=== PATIENT | female | born 1925 | race Caucasian/White ===

== ENCOUNTER 2016-03-09 13:14 | Inpatient (IN) | payer MEDICARE, OTHER ==
[~2016-03-09] VITALS: Ht 162.6 cm; Wt 70.0 kg
[2016-03-09 13:19] VITALS: BP 131/84; PULSE 96; RESP 20; TEMP 98.3; O2SAT 95
[2016-03-09] MEDS ORDERED: ONDANSETRON HCL 4 MG/2 ML VIAL IVP ONE (14:15)
[2016-03-09] MEDS ORDERED: MORPHINE SULFATE 4 MG/ML INJ IV PUSH ONE (14:15)
[2016-03-09] MEDS ORDERED: SODIUM CHLORIDE 0.9% FLUSH 5 ML FLUSH IVF PRN (14:15)
--- NOTE | 2016-03-09 14:22 | PD ---
HPI Chief Complaint: Abdominal Pain Time Seen by Provider: 14:22 Travel History International Travel<30 days: No Contact w/Intl Traveler<30days: No Traveled to known affect area: No History of Present Illness HPI 89-year-old female with PMH of A. fib status post pacemaker, CHF, HLD, DM, gastric cancer status post Dany-en-Y in 2003, on Coumadin presents to the ED for evaluation of 3 day history of constipation with associated belly pain. Gradual onset. Patient endorses accompanying nausea. She denies vomiting. She has been eating 3-4 small meals daily. She denies dark, tarry stool, BRBPR. Endorses chronic urinary incontinence. Denies dysuria. Denies fever or chills. Patient's son accompanies her. He states that she [facility] AM approximately one week ago. He presents paperwork from her discharge that shows diagnosis of CHF, elevated troponins. He is also concerned that the patient has been confused for the past 2 days. Patient's primary care is Dr. Leonor Read. PFSH Past Medical History Hx Anticoagulant Therapy: Yes Depression: Yes Heart Rhythm Problems: Yes Cancer: Yes (GASTRIC ; SKIN) Cardiovascular Problems: Yes (ATRIAL FIB) High Cholesterol: Yes Chemotherapy: Yes (2003) Cerebrovascular Accident: No Diabetes: Yes Patient Takes Glucophage: Yes (Metformin 03/08/2016) Diminished Hearing: Yes (BILATERAL) Deep Vein Thrombosis: Yes Endocrine: Yes Gastrointestinal Disorders: Yes (GERD) Genitourinary: Yes (STRESS INCONTINENCE) Headaches: Yes Hepatitis: No Hiatal Hernia: No Hypertension: Yes Immune Disorder: No Medical other: Yes (HX PULMONARY EMBOLISM -BILATERAL ) Musculoskeletal: Yes (ARTHRITIS; RIGHT SHOULDER TORN ROTATOR CUFF; NECK PAIN) Neurologic: Yes (NEUROPATHY FEET AND HANDS) Psychiatric: No Reproductive: Yes (S/P HYSTERECTOMY) Respiratory: No Radiation Therapy: Yes (2003) Thyroid Disease: Yes (SYNTHROID) Menopausal: Yes : 4 Para: 4 Past Surgical History Abdominal Surgery: Yes (GASTRIC RESECTION 2003 (DANY-EN-Y); OLGA) Body Medical Devices: PIN TOE Cardiac Surgery: Yes (PACEMAKER) Eye Surgery: Yes (BILATERAL CATARACT SX) Genitourinary Surgery: Yes (BLADDER SUSPENSION) Hysterectomy: Yes Pacemaker: Yes ([id number],S60 ENTOVIS DRT) Other Surgery: Yes Social History Alcohol Use: No Tobacco Use: No Substance Use: No Allergies-Medications (Allergen,Severity, Reaction): Coded Allergies: Aspirin (Verified Allergy, Severe, 11/22/14) MILD REACTION; EXCESSIVE SALIVA Celebrex (Verified Allergy, Severe, RASH, 11/22/14) MILD REACTION-RASH Sulfa (Verified Allergy, Severe, Rash, 11/22/14) PT STATES SHE IS NOT ALLERGIC TO THIS MED Reported Meds & Prescriptions Reported Meds & Active Scripts Active Reported Simvastatin 20 Mg Tab 20 Mg PO HS Fish Oil 1200 mg ([place]-3 Fatty Acids) 1 Cap Cap 1,200 Mg PO BID Theragran-M (Multiple Vitamins W/ Minerals) 1 Tab 1 Tab PO DAILY Toprol XL (Metoprolol Succinate) 25 Mg Tab 25 Mg PO DAILY Metformin (Metformin HCl) 500 Mg Tab 500 Mg PO BID With meals Gabapentin 300 Mg Cap 300 Mg PO BID Alph-E (Vitamin E) 400 Unit Cap 400 Units PO BID Potassium 99 Mg Tab 99 Mg PO DAILY Synthroid (Levothyroxine Sodium) 50 Mcg Tab 50 Mcg PO DAILY Vitamin D3 (Cholecalciferol) 1,000 Unit Tab 1,000 Units PO DAILY Coumadin (Warfarin) 5 Mg Tab 5 Mg PO DAILY@1600 Vesicare (Solifenacin) 5 Mg Tab 5 Mg PO DAILY Tramadol (Tramadol HCl) 50 Mg Tab 50 Mg PO Q8H Lasix (Furosemide) 40 Mg Tab 40 Mg PO DAILY Hydrochlorothiazide 25 Mg Tab 25 Mg PO DAILY Jose Luis-Tab DR (Erythromycin) 250 Mg Tabdr 250 Mg PO Q8HR Review of Systems Except as stated in HPI: all other systems reviewed are Neg Physical Exam Exam Limitations: Poor Historian Narrative GENERAL: Well-nourished, well-developed white female in no acute distress. She is occasionally tearful throughout the interview. SKIN: Warm and dry. HEAD: Normocephalic. EYES: No scleral icterus. No injection or drainage. PERRLA. NECK: Supple, trachea midline. No JVD or lymphadenopathy. CARDIOVASCULAR: Regular rate and rhythm without murmurs, gallops, or rubs. RESPIRATORY: Breath sounds clear and equal bilaterally. No accessory muscle use. GASTROINTESTINAL: Abdomen firm, diffusely tender, mildly distended. Hyperactive bowel sounds. Very tender to palpation in the suprapubic area. MUSCULOSKELETAL: No cyanosis. Right leg with 2+ pitting edema to the knee. Left leg with extreme edema to the mid thigh. BACK: Nontender without obvious deformity. No CVA tenderness. Data Data Last Documented VS Vital Signs Date Time Temp Pulse Resp B/P Pulse Ox O2 Delivery O2 Flow Rate FiO2 03/09/16 16:26 99 Nasal Cannula 2.00 03/09/16 15:01 77 14 131/79 03/09/16 13:19 98.3 Orders Complete Blood Count With Diff (03/09/16 14:14) Comprehensive Metabolic Panel (03/09/16 14:14) Lipase (03/09/16 14:14) Lactic Acid (03/09/16 14:14) Prothrombin Time / Inr (Pt) (03/09/16 14:14) Act Partial Throm Time (Ptt) (03/09/16 14:14) Urinalysis - C+S If Indicated (03/09/16 14:14) Ct Abd/Pel W Iv Contrast(Rout) (03/09/16 14:14) Iv Access Insert/Monitor (03/09/16 14:14) Ecg Monitoring (03/09/16 14:14) Oximetry (03/09/16 14:14) NPO (03/09/16 14:14) Morphine Inj (Morphine Inj) (03/09/16 14:15) Ondansetron Inj (Zofran Inj) (03/09/16 14:15) Sodium Chloride 0.9% Flush (Ns Flush) (03/09/16 14:15) Electrocardiogram (03/09/16 14:14) Chest, Single Ap (03/09/16 14:14) Potassium Chloride (Kcl) (03/09/16 15:15) Potassium Chlor 20 Meq Premix (Kcl 20 Me (03/09/16 15:15) ^ Straight Catheter (03/09/16 15:22) Iodixanol 320 Inj (Visipaque 320 Inj) (03/09/16 15:30) Admit To Inpatient (03/09/16 ) Vital Signs (Adult) Q4H (03/09/16 16:22) Activity Oob With Assistance (03/09/16 16:22) ^ Operations/Dispatch / Telemetry .CONTINUOUS (03/09/16 16:22) Intake + Output VINCE.QSHIFT (03/09/16 16:22) Diet Heart Healthy (03/09/16 Dinner) Sodium Chlor 0.9% 1000 Ml Inj (Ns 1000 M (03/09/16 16:22) Sodium Chloride 0.9% Flush (Ns Flush) (03/09/16 16:30) Sodium Chloride 0.9% Flush (Ns Flush) (03/09/16 21:00) Acetaminophen (Tylenol) (03/09/16 16:30) Ondansetron Inj (Zofran Inj) (03/09/16 16:30) Prochlorperazine Supp (Compazine Supp) (03/09/16 16:30) Bisacodyl Supp (Dulcolax Supp) (03/09/16 16:30) Magnesium Hydroxide Liq (Milk Of Magnesi (03/09/16 16:30) Sennosides (Senokot) (03/09/16 16:30) Temazepam (Restoril) (03/09/16 16:30) Basic Metabolic Panel (Bmp) (03/10/16 06:00) Complete Blood Count With Diff (03/10/16 06:00) Resp Oxygen Karthik C Titrat 1-4 L (03/09/16 ) Pt Request For Service (03/09/16 16:22) Case Management Consult (03/09/16 16:22) Scd Bilateral/Knee High VINCE.BID (03/09/16 16:22) Rojas Bilateral/Knee High VINCE.QSHIFT (03/09/16 16:22) Inpatient Certification (03/09/16 ) Potassium Chlor 20 Meq Premix (Kcl 20 Me (03/09/16 16:30) Admit Order (Ed Use Only) (03/09/16 16:22) Consult Urology (03/09/16 ) Labs Laboratory Tests Test 03/09/16 03/09/16 14:12 14:20 Lactic Acid Level 1.6 mmol/L White Blood Count 2.4 TH/MM3 Red Blood Count 2.78 MIL/MM3 Hemoglobin 9.9 GM/DL Hematocrit 29.0 % Mean Corpuscular Volume 104.1 FL Mean Corpuscular Hemoglobin 35.5 PG Mean Corpuscular Hemoglobin 34.1 % Concent Red Cell Distribution Width 15.3 % Platelet Count 228 TH/MM3 Mean Platelet Volume 10.2 FL Neutrophils (%) (Auto) 40.1 % Lymphocytes (%) (Auto) 42.3 % Monocytes (%) (Auto) 16.5 % Eosinophils (%) (Auto) 0.2 % Basophils (%) (Auto) 0.9 % Neutrophils # (Auto) 1.0 TH/MM3 Lymphocytes # (Auto) 1.0 TH/MM3 Monocytes # (Auto) 0.4 TH/MM3 Eosinophils # (Auto) 0.0 TH/MM3 Basophils # (Auto) 0.0 TH/MM3 CBC Comment DIFF FINAL Differential Comment Prothrombin Time 19.1 SEC Prothromb Time International 1.7 RATIO Ratio Activated Partial 32.6 SEC Thromboplast Time Sodium Level 141 MEQ/L Potassium Level 2.5 MEQ/L Chloride Level 100 MEQ/L Carbon Dioxide Level 31.6 MEQ/L Anion Gap 9 MEQ/L Blood Urea Nitrogen 24 MG/DL Creatinine 1.30 MG/DL Estimat Glomerular Filtration 39 ML/MIN Rate Random Glucose 112 MG/DL Calcium Level 8.7 MG/DL Total Bilirubin 0.9 MG/DL Aspartate Amino Transf 20 U/L (AST/SGOT) Alanine Aminotransferase 22 U/L (ALT/SGPT) Alkaline Phosphatase 66 U/L Total Protein 6.1 GM/DL Albumin 3.1 GM/DL Lipase 63 U/L [facility] Medical Decision Making Medical Screen Exam Complete: Yes Emergency Medical Condition: Yes Interpretation(s) EKG rate 76 with A. fib. Occasional pacer spike. Normal axis. No ischemic changes. Reviewed by Dr. Kidd. Differential Diagnosis Constipation versus bowel obstruction versus UTI versus ACS versus other Narrative Course 89-year-old female with PMH of A. fib status post pacemaker, CHF, HLD, DM, gastric cancer status post Dany-en-Y in 2003, on Coumadin presents to the ED for evaluation of gradual onset, 3 day history of constipation with associated belly pain, accompanied by nausea. Endorses good appetite. Denies fever, chills, vomiting, dysuria. Patient's son accompanies is at bedside and states that she left [facility] approximately one week ago diagnosed with CHF, elevated troponins. PCP: Dr. Leonor Read. No current trader. Vitals reviewed. Physical exam with diffuse abdominal tenderness, especially in the suprapubic region. Significant edema in the bilateral lower extremities, left greater than right. Otherwise unremarkable. IV was established. Patient was placed on continuous monitoring. She was administered Zofran and morphine. CBC: WBC 2.4. Rbc's 2.78. Hemoglobin 9.9. INR is 1.7, subtherapeutic. Lactic acid 1.6. CMP: BUN 24, creatinine 1.3. Potassium 2.5. Lipase 6.3. Chest x-ray: small left pleural effusion, cardiomegaly and degenerative changes and scoliosis of the thoracolumbar spine. CT abdomen and pelvis: 1. Chronic moderate to severe hydronephrosis bilaterally of indeterminate etiology. 2. Mild diffuse urinary bladder wall thickening. 3. Uncomplicated sigmoid diverticulosis. 4. Minimal prominence of the extrahepatic and central intrahepatic biliary system. Correlation with alkaline phosphatase and bilirubin levels is suggested to rule out biliary obstruction. 5. Small to moderate sized left pleural effusion and tiny right pleural effusion. 4. Cardiomegaly. 5. Atelectasis within the lingula of the left upper lobe. 6. Degenerative changes and scoliosis of the thoracolumbar spine. Patient's potassium was replaced both orally and by IV. Recheck of the patient reveals improvement of her abdominal pain. Discussed the patient and workup with Dr. Kidd. Given the hydronephrosis and elevated BUN and creatinine will admit to the medicine service with nephrology consult. Spoke with Dr. Wren who agrees to accept the patient to the medical service for further evaluation. Please see medicine and urology notes for disposition. Diagnosis Primary Impression: Bilateral hydronephrosis Additional Impressions: Hypokalemia MINE (acute kidney injury) Admitting Information Admitting Physician Requests: Admit Briana Lang Mar 09, 2016 14:22 Briana Lang Mar 09, 2016 14:22
[2016-03-09] MEDS ORDERED: ALPH400C2 PO (14:31)
[2016-03-09] MEDS ORDERED: HYDR25TA5 PO (14:31)
[2016-03-09] MEDS ORDERED: FURO1TAB60 PO (14:31)
[2016-03-09] MEDS ORDERED: SIMV20TA PO (14:31)
[2016-03-09] MEDS ORDERED: MIRA33504 PO (14:31)
[2016-03-09] MEDS ORDERED: ERYT250 PO (14:31)
[2016-03-09] MEDS ORDERED: LEVO.05 PO (14:31)
[2016-03-09] MEDS ORDERED: VITA100018 PO (14:31)
[2016-03-09] MEDS ORDERED: VESI5TAB PO (14:31)
[2016-03-09] MEDS ORDERED: THERTAB27 PO (14:31)
[2016-03-09] MEDS ORDERED: TRAM50TA PO (14:31)
[2016-03-09] MEDS ORDERED: COUM5TAB PO (14:31)
[2016-03-09] MEDS ORDERED: POTA99TA PO (14:31)
[2016-03-09] MEDS ORDERED: FISH1200 PO (14:31)
[2016-03-09] MEDS ORDERED: METF500T PO (14:31)
[2016-03-09] MEDS ORDERED: GABA300C5 PO (14:31)
[2016-03-09] MEDS ORDERED: TOPR25TA PO (14:31)
[2016-03-09 14:45] LABS: BASOPHIL % 0.9 % (0.0-2.0); EOSINOPHIL % 0.2 % (0.0-4.0); HEMO FLAGS DIFF FINAL; LYMPH % 42.3 % (9.0-44.0); MEAN CELL VOLUME 104.1 FL (80.0-100.0); MEAN CORPUSCULAR HEMOGLOBIN 35.5 PG (27.0-34.0); MEAN CORPUSCULAR HGB CONC 34.1 % (32.0-36.0); MONO % 16.5 % (0.0-8.0); NEUT % 40.1 % (16.0-70.0); PLATELET COUNT 228 TH/MM3 (150-450); RED BLOOD COUNT 2.78 MIL/MM3 (4.00-5.30); RED CELL DISTRIBUTION WIDTH 15.3 % (11.6-17.2); WHITE BLOOD COUNT 2.4 TH/MM3 (4.0-11.0)
[2016-03-09 14:54] LABS: APTT (PATIENT) 32.6 SEC (24.3-30.1); INTERNATIONAL NORMALIZED RATIO 1.7 RATIO; PROTHROMBIN TIME - PATIENT 19.1 SEC (9.8-11.6)
[2016-03-09 15:01] VITALS: BP 131/79; PULSE 77; RESP 14; O2SAT 100
[2016-03-09 15:09] LABS: ALKALINE PHOSPHATASE 66 U/L (45-117); ALT (GPT) 22 U/L (10-53); ANION GAP 9 MEQ/L (5-15); AST (GOT) 20 U/L (15-37); BICARBONATE 31.6 MEQ/L (21.0-32.0); BLOOD UREA NITROGEN 24 MG/DL (7-18); CHLORIDE 100 MEQ/L (98-107); GLOMERULAR FILTRATION RATE 39 ML/MIN (>89); SODIUM (NA) 141 MEQ/L (136-145); TOTAL BILIRUBIN ADULT 0.9 MG/DL (0.2-1.0)
[2016-03-09 15:11] LABS: POTASSIUM 2.5 MEQ/L (3.5-5.1)
--- NOTE | 2016-03-09 15:11 | RADRPT ---
EXAM DATE/TIME: 03/09/2016 14:40 [facility] COMPARISON: CHEST SINGLE AP, February 05, 2016, 20:11. INDICATIONS : Short of Breath MEDICAL HISTORY : Carcinoma, gastric. SURGICAL HISTORY : Pacemaker. Hysterectomy. ENCOUNTER: Initial ACUITY: 1 day PAIN SCORE: 4/10 LOCATION: Bilateral chest FINDINGS: A left subclavian dual-lead pacemaker has its tips in the right atrium and right ventricle. There is no pneumothorax. A small left pleural effusion is noted. The pulmonary vascular pattern is normal. The lungs are clear. The heart is mildly enlarged. Degenerative changes and scoliosis of the thor acolumbar spine are noted. CONCLUSION: 1. Small left pleural effusion. 2. Cardiomegaly. 3. Degenerative changes and scoliosis of the thoracolumbar spine. Ervin Lilly MD on March 09, 2016 at 15:04 Board Certified Radiologist. This report was verified electronically.
[2016-03-09] MEDS ORDERED: POTASSIUM CHLORIDE 20 MEQ CONTROLLED RELEASE TAB PO ONE (15:15)
[2016-03-09] MEDS ORDERED: POTASSIUM CHLOR 20 MEQ PREMIX 100 ML IV ONE (15:15)
[2016-03-09] MEDS ORDERED: IODIXANOL 320 MG/ML 10 ML VIAL (for RAD SPEC) IV ONE (15:30)
--- NOTE | 2016-03-09 15:56 | RADRPT ---
EXAM DATE/TIME: 03/09/2016 15:26 [facility] COMPARISON: CTA RUNOFF W 3D RECON, February 05, 2016, 22:07. INDICATIONS : Constipation for three days and abdominal pain. IV CONTRAST: 46 cc Visipaque (iodixanol) IV ORAL CONTRAST: No oral contrast ingested. RADIATION DOSE: 5.57 CTDIvol (mGy) MEDICAL HISTORY : Diabetes mellitus type 2. Hypertension. Gastric cancer. Thyroid disease. SURGICAL HISTORY : Hysterectomy. Pacemaker. Javan en Y. ENCOUNTER: Initial ACUITY: 3 days PAIN SCALE: 5/10 LOCATION: Pelvis TECHNIQUE: Volumetric scanning of the abdomen and pelvis was performed. Using automated exposure control and ad justment of the mA and/or kV according to patient size, radiation dose was kept as low as reasonably achievable to obtain optimal diagnostic quality images. FINDINGS: Small to moderate sized left pleural effusion and tiny right pleural effusion are noted. The heart i s enlarged. There is chronic moderate to severe hydronephrosis bilaterally without definite calcifie d obstructing calculi noted. The urinary bladder is only partially distended and its wall is diffuse ly thickened. A few scattered uncomplicated diverticula are noted. There is no acute diverticulitis . Gastric bypass has been performed. The patient is status post cholecystectomy. No focal hepatic mass is noted. There is slight prominence of the extrahepatic and central intrahepatic biliary syste m. Correlation with alkaline phosphatase and bilirubin levels is suggested to rule out subtle biliar y obstruction. Degenerative changes and scoliosis of the thoracolumbar spine are noted. There is st able atrophy of the pancreas. Atelectasis is noted within the lingula of the left upper lobe. CONCLUSION: 1. Chronic moderate to severe hydronephrosis bilaterally of indeterminate etiology. 2. Mild diffuse urinary bladder wall thickening. 3. Uncomplicated sigmoid diverticulosis. 4. Minimal prominence of the extrahepatic and central intrahepatic biliary system. Correlation with alkaline phosphatase and bilirubin levels is suggested to rule out biliary obstruction. 5. Small to moderate sized left pleural effusion and tiny right pleural effusion. 4. Cardiomegaly. 5. Atelectasis within the lingula of the left upper lobe. 6. Degenerative changes and scoliosis of the thoracolumbar spine. Ervin Lilly MD on March 09, 2016 at 15:42 Board Certified Radiologist. This report was verified electronically.
[2016-03-09 16:26] VITALS: O2SAT 99
--- NOTE | 2016-03-09 16:26 | PD ---
Physical Exam Narrative Patient was seen and examined with my press operator assistant. Data Data Last Documented VS Vital Signs Date Time Temp Pulse Resp B/P Pulse Ox O2 Delivery O2 Flow Rate FiO2 03/09/16 15:01 77 14 131/79 100 Nasal Cannula 2 03/09/16 13:19 98.3 Orders Complete Blood Count With Diff (03/09/16 14:14) Comprehensive Metabolic Panel (03/09/16 14:14) Lipase (03/09/16 14:14) Lactic Acid (03/09/16 14:14) Prothrombin Time / Inr (Pt) (03/09/16 14:14) Act Partial Throm Time (Ptt) (03/09/16 14:14) Urinalysis - C+S If Indicated (03/09/16 14:14) Ct Abd/Pel W Iv Contrast(Rout) (03/09/16 14:14) Iv Access Insert/Monitor (03/09/16 14:14) Ecg Monitoring (03/09/16 14:14) Oximetry (03/09/16 14:14) NPO (03/09/16 14:14) Morphine Inj (Morphine Inj) (03/09/16 14:15) Ondansetron Inj (Zofran Inj) (03/09/16 14:15) Sodium Chloride 0.9% Flush (Ns Flush) (03/09/16 14:15) Electrocardiogram (03/09/16 14:14) Chest, Single Ap (03/09/16 14:14) Potassium Chloride (Kcl) (03/09/16 15:15) Potassium Chlor 20 Meq Premix (Kcl 20 Me (03/09/16 15:15) ^ Straight Catheter (03/09/16 15:22) Iodixanol 320 Inj (Visipaque 320 Inj) (03/09/16 15:30) Admit To Inpatient (03/09/16 ) Vital Signs (Adult) Q4H (03/09/16 16:22) Activity Oob With Assistance (03/09/16 16:22) ^ Java Development Team Lead / Telemetry .CONTINUOUS (03/09/16 16:22) Intake + Output VINCE.QSHIFT (03/09/16 16:22) Diet Heart Healthy (03/09/16 Dinner) Sodium Chlor 0.9% 1000 Ml Inj (Ns 1000 M (03/09/16 16:22) Sodium Chloride 0.9% Flush (Ns Flush) (03/09/16 16:30) Sodium Chloride 0.9% Flush (Ns Flush) (03/09/16 21:00) Acetaminophen (Tylenol) (03/09/16 16:30) Ondansetron Inj (Zofran Inj) (03/09/16 16:30) Prochlorperazine Supp (Compazine Supp) (03/09/16 16:30) Bisacodyl Supp (Dulcolax Supp) (03/09/16 16:30) Magnesium Hydroxide Liq (Milk Of Magnesi (03/09/16 16:30) Sennosides (Senokot) (03/09/16 16:30) Temazepam (Restoril) (03/09/16 16:30) Basic Metabolic Panel (Bmp) (03/10/16 06:00) Complete Blood Count With Diff (03/10/16 06:00) Resp Oxygen Karthik C Titrat 1-4 L (03/09/16 ) Pt Request For Service (03/09/16 16:22) Case Management Consult (03/09/16 16:22) Scd Bilateral/Knee High VINCE.BID (03/09/16 16:22) Rojas Bilateral/Knee High VINCE.QSHIFT (03/09/16 16:22) Inpatient Certification (03/09/16 ) Potassium Chlor 20 Meq Premix (Kcl 20 Me (03/09/16 16:30) Admit Order (Ed Use Only) (03/09/16 16:22) Labs Laboratory Tests Test 03/09/16 03/09/16 14:12 14:20 Lactic Acid Level 1.6 mmol/L White Blood Count 2.4 TH/MM3 Red Blood Count 2.78 MIL/MM3 Hemoglobin 9.9 GM/DL Hematocrit 29.0 % Mean Corpuscular Volume 104.1 FL Mean Corpuscular Hemoglobin 35.5 PG Mean Corpuscular Hemoglobin 34.1 % Concent Red Cell Distribution Width 15.3 % Platelet Count 228 TH/MM3 Mean Platelet Volume 10.2 FL Neutrophils (%) (Auto) 40.1 % Lymphocytes (%) (Auto) 42.3 % Monocytes (%) (Auto) 16.5 % Eosinophils (%) (Auto) 0.2 % Basophils (%) (Auto) 0.9 % Neutrophils # (Auto) 1.0 TH/MM3 Lymphocytes # (Auto) 1.0 TH/MM3 Monocytes # (Auto) 0.4 TH/MM3 Eosinophils # (Auto) 0.0 TH/MM3 Basophils # (Auto) 0.0 TH/MM3 CBC Comment DIFF FINAL Differential Comment Prothrombin Time 19.1 SEC Prothromb Time International 1.7 RATIO Ratio Activated Partial 32.6 SEC Thromboplast Time Sodium Level 141 MEQ/L Potassium Level 2.5 MEQ/L Chloride Level 100 MEQ/L Carbon Dioxide Level 31.6 MEQ/L Anion Gap 9 MEQ/L Blood Urea Nitrogen 24 MG/DL Creatinine 1.30 MG/DL Estimat Glomerular Filtration 39 ML/MIN Rate Random Glucose 112 MG/DL Calcium Level 8.7 MG/DL Total Bilirubin 0.9 MG/DL Aspartate Amino Transf 20 U/L (AST/SGOT) Alanine Aminotransferase 22 U/L (ALT/SGPT) Alkaline Phosphatase 66 U/L Total Protein 6.1 GM/DL Albumin 3.1 GM/DL Lipase 63 U/L MDM Supervised Visit with TRISTON: Yes Diagnosis Primary Impression: Bilateral hydronephrosis Additional Impressions: MINE (acute kidney injury) Hypokalemia Jose Enrique Kidd MD Mar 09, 2016 16:26
[2016-03-09] MEDS ORDERED: PROCHLORPERAZINE 25 MG SUPP PR PRN (16:30)
[2016-03-09] MEDS ORDERED: BISACODYL 10 MG SUPP PR PRN (16:30)
[2016-03-09] MEDS ORDERED: SENNOSIDES 8.6 MG TAB PO PRN (16:30)
[2016-03-09] MEDS ORDERED: DEXTROSE 50% IN WATER 50 ML VIAL(D50) IV PUSH PRN (16:30)
[2016-03-09] MEDS ORDERED: ACETAMINOPHEN 325 MG TAB PO PRN (16:30)
[2016-03-09] MEDS ORDERED: TEMAZEPAM 15 MG CAP PO PRN (16:30)
[2016-03-09] MEDS ORDERED: SODIUM CHLORIDE 0.9% FLUSH 5 ML FLUSH FLUSH PRN (16:30)
[2016-03-09] MEDS ORDERED: GLUCAGON 1 MG/ML VIAL OTHER PRN (16:30)
--- NOTE | 2016-03-09 16:41 | HHI.HP ---
[facility] Primary Care Physician Leonor Ulloa MD Admission Diagnosis bilateral hydronephrosis. Renal insufficiency. Hypokalemia. Diagnoses: Travel History International Travel<30 Days: No Contact w/Intl Traveler <30 Da: No Traveled to Known Affected Are: No History of Present Illness 89-year-old female with past medical history of HTN, HLD, DM, A. fib, GERD, PE, hypothyroidism, CHF, h/o gastric CA who presented with abdominal pain. The patient is a poor historian. She states that she's had chronic abdominal pain "off and on for a long time", unable to specify how long, continually asks to "check my history". When asked if her abdominal pain is been getting worse lately she states "yes and no" but does not elaborate. She reports the abdominal pain is diffuse and worse in the upper abdomen. She does state that she has not had a bowel movement and "a couple of days" unsure when last BM was. She does state that she took MiraLAX and 2 enemas yesterday with still no BM. She denies any vomiting, but she states she feels like she needs to. She has been tolerating oral intake, but much. She was recently admitted at [facility], but she states they didn't do anything there so she checked herself out. She denies any chest pain, shortness of breath, fever, chills. She has chronic urinary incontinence. She states she is having some dysuria a few weeks ago and saw her urologist, Dr. Eduardo, who told her that she did not have an infection. She states that she hasn't seen her funding coordinator in quite a while because they had "parted ways". Review of Systems ROS Limitations: Poor Historian Other Review of systems Limited secondary to poor historian Past Family Social History Past Medical History Hypertension Hyperlipidemia Diabetes mellitus Atrial fibrillation History of PE on chronic anticoagulation GERD Hypothyroidism History of gastric cancer status post resection and radiation Chronic anemia/leukopenia CHF, diastolic Stress incontinence Past Surgical History Gastric cancer resection Javan-en-Y surgery Hysterectomy Cholecystectomy Pacemaker placement Reported Medications Simvastatin 20 Mg Tab 20 Mg PO HS Fish Oil 1200 mg ([place]-3 Fatty Acids) 1 Cap Cap 1,200 Mg PO BID Theragran-M (Multiple Vitamins W/ Minerals) 1 Tab 1 Tab PO DAILY Toprol XL (Metoprolol Succinate) 25 Mg Tab 25 Mg PO DAILY Metformin (Metformin HCl) 500 Mg Tab 500 Mg PO BID With meals Gabapentin 300 Mg Cap 300 Mg PO BID Alph-E (Vitamin E) 400 Unit Cap 400 Units PO BID Potassium 99 Mg Tab 99 Mg PO DAILY Synthroid (Levothyroxine Sodium) 50 Mcg Tab 50 Mcg PO DAILY Vitamin D3 (Cholecalciferol) 1,000 Unit Tab 1,000 Units PO DAILY Coumadin (Warfarin) 5 Mg Tab 5 Mg PO DAILY@1600 Vesicare (Solifenacin) 5 Mg Tab 5 Mg PO DAILY Tramadol (Tramadol HCl) 50 Mg Tab 50 Mg PO Q8H Lasix (Furosemide) 40 Mg Tab 40 Mg PO DAILY Hydrochlorothiazide 25 Mg Tab 25 Mg PO DAILY Jose Luis-Tab DR (Erythromycin) 250 Mg Tabdr 250 Mg PO Q8HR Allergies: Coded Allergies: Aspirin (Verified Allergy, Severe, 11/22/14) MILD REACTION; EXCESSIVE SALIVA Celebrex (Verified Allergy, Severe, RASH, 11/22/14) MILD REACTION-RASH Sulfa (Verified Allergy, Severe, Rash, 11/22/14) PT STATES SHE IS NOT ALLERGIC TO THIS MED Active Ordered Medications Current Medications Medications (Trade) Dose Ordered Sig/Armin Route Start Time Stop Time Status Last Admin IV Flush 2 ml 2 ml UNSCH PRN IVF 03/09/16 14:15 Potassium Chloride 100 ml @ 50 mls/hr BOLUS ONCE IV 03/09/16 15:15 03/09/16 17:14 03/09/16 15:59 (NS 1000 ml Inj) 1,000 ml @ 100 mls/hr Q10H IV 03/09/16 16:22 (NS Flush) 2 ml UNSCH PRN FLUSH 03/09/16 16:30 (NS Flush) 2 ml BID FLUSH 03/09/16 21:00 (Tylenol) 650 mg Q4H PRN PO 03/09/16 16:30 (Zofran Inj) 4 mg Q6H PRN IVP 03/09/16 16:30 (Compazine Supp) 25 mg Q12H PRN SC 03/09/16 16:30 (Dulcolax Supp) 10 mg DAILY PRN SC 03/09/16 16:30 (Milk Of Magnesia Liq) 30 ml Q12H PRN PO 03/09/16 16:30 (Senokot) 17.2 mg Q12H PRN PO 03/09/16 16:30 Temazepam 15 mg 15 mg HS PRN PO 03/09/16 16:30 (KCl 20 Meq Premix Inj) 100 ml @ 50 mls/hr Q2H IV 03/09/16 16:30 03/09/16 20:29 UNV (Erythromycin Ec) 250 mg Q8HR PO 03/09/16 22:00 UNV (Neurontin) 300 mg BID PO 03/09/16 21:00 UNV (Synthroid) 50 mcg DAILY PO 03/10/16 09:00 UNV (Toprol Xl) 25 mg DAILY PO 03/10/16 09:00 UNV (Theragran M Tab) 1 tab DAILY PO 03/10/16 09:00 UNV (Miralax) 17 gm DAILY PO 03/10/16 09:00 UNV (Ultram) 50 mg Q8H PO 03/09/16 16:30 UNV (Coumadin) 5 mg DAILY@1600 PO 03/10/16 16:00 UNV Non-Formulary Medication 1,200 mg BID PO 03/09/16 21:00 UNV Non-Formulary Medication 99 mg DAILY PO 03/10/16 09:00 UNV Non-Formulary Medication 20 mg HS PO 03/09/16 21:00 UNV Non-Formulary Medication 5 mg DAILY PO 03/10/16 09:00 UNV (D50w (Vial) Inj) 25 ml UNSCH PRN IV PUSH 03/09/16 16:30 UNV (Glucagon Inj) 1 mg UNSCH PRN OTHER 03/09/16 16:30 UNV Family History Mother had high blood pressure and severe arthritis Social History Rare alcohol use Denies any tobacco use Lives in independent living facility Physical Exam Vital Signs Vital Signs Date Time Temp Pulse Resp B/P Pulse Ox O2 Delivery O2 Flow Rate FiO2 03/09/16 16:26 99 Nasal Cannula 2.00 03/09/16 15:01 77 14 131/79 100 Nasal Cannula 2 03/09/16 15:01 14 03/09/16 13:27 03/09/16 13:19 98.3 96 20 131/84 95 Room Air Physical Exam GENERAL: Well-developed well-nourished. In no acute distress. SKIN: Warm and dry. No lesions noted. HEENT: Normocephalic. Pupils equal and round. Mucous membranes pink and moist. CARDIOVASCULAR: Irregular rate and rhythm. No murmur appreciated. RESPIRATORY: No accessory muscle use. Clear to auscultation. Bibasilar crackles. GASTROINTESTINAL: Abdomen soft, non-tender, nondistended. Bowel sounds x4. MUSCULOSKELETAL: Left lower extremity with a compression dressing, patient states is for DVT. 2+ lower extremity edema. No clubbing or cyanosis. NEUROLOGICAL: Awake and alert. No focal neurological deficits. Moves upper and lower extremities spontaneously. Normal speech. PSYCHIATRIC: Pleasantly confused mood and affect; insight and judgment fair to poor. Laboratory Laboratory Tests Test 03/09/16 03/09/16 14:12 14:20 Lactic Acid Level 1.6 White Blood Count 2.4 Red Blood Count 2.78 Hemoglobin 9.9 Hematocrit 29.0 Mean Corpuscular Volume 104.1 Mean Corpuscular Hemoglobin 35.5 Mean Corpuscular Hemoglobin 34.1 Concent Red Cell Distribution Width 15.3 Platelet Count 228 Mean Platelet Volume 10.2 Neutrophils (%) (Auto) 40.1 Lymphocytes (%) (Auto) 42.3 Monocytes (%) (Auto) 16.5 Eosinophils (%) (Auto) 0.2 Basophils (%) (Auto) 0.9 Neutrophils # (Auto) 1.0 Lymphocytes # (Auto) 1.0 Monocytes # (Auto) 0.4 Eosinophils # (Auto) 0.0 Basophils # (Auto) 0.0 CBC Comment DIFF FINAL Differential Comment Prothrombin Time 19.1 Prothromb Time International 1.7 Ratio Activated Partial 32.6 Thromboplast Time Sodium Level 141 Potassium Level 2.5 Chloride Level 100 Carbon Dioxide Level 31.6 Anion Gap 9 Blood Urea Nitrogen 24 Creatinine 1.30 Estimat Glomerular Filtration 39 Rate Random Glucose 112 Calcium Level 8.7 Total Bilirubin 0.9 Aspartate Amino Transf 20 (AST/SGOT) Alanine Aminotransferase 22 (ALT/SGPT) Alkaline Phosphatase 66 Total Protein 6.1 Albumin 3.1 Lipase 63 Result Diagram: 03/09/16 1420 03/09/16 1420 Imaging Last Impressions Chest X-Ray 03/09/16 1414 Signed Impressions: Service Date/Time: Wednesday, March 09, 2016 14:40 - CONCLUSION: 1. Small left pleural effusion. 2. Cardiomegaly. 3. Degenerative changes and scoliosis of the thoracolumbar spine. Ervin Lilly MD Abdomen/Pelvis CT 03/09/16 1414 Signed Impressions: Service Date/Time: Wednesday, March 09, 2016 15:26 - CONCLUSION: 1. Chronic moderate to severe hydronephrosis bilaterally of indeterminate etiology. 2. Mild diffuse urinary bladder wall thickening. 3. Uncomplicated sigmoid diverticulosis. 4. Minimal prominence of the extrahepatic and central intrahepatic biliary system. Correlation with alkaline phosphatase and bilirubin levels is suggested to rule out biliary obstruction. 5. Small to moderate sized left pleural effusion and tiny right pleural effusion. 4. Cardiomegaly. 5. Atelectasis within the lingula of the left upper lobe. 6. Degenerative changes and scoliosis of the thoracolumbar spine. Ervin Lilly MD Assessment and Plan Assessment and Plan 89-year-old female with past medical history of HTN, HLD, DM, A. fib, GERD, PE, hypothyroidism, CHF, h/o gastric CA who presented with abdominal pain Abdominal pain: Acute on chronic. Complicated intra-abdominal history of gastric cancer multiple abdominal surgeries. Etiology of the pain could be multifactorial. Abdominal CT reviewed, numerous changes that appear to be chronic, unsure if any acute process. Suspect symptoms worsened by constipation , will give cathartics, laxatives, enemas. Consider GI consult if symptoms persist. History of diastolic CHF: Patient appears volume overloaded with pulmonary crackles and lower extremity on exam and left pleural effusion seen on imaging, however patient denies any symptoms. Previous echocardiogram from 2014 reviewed , essentially within normal limits, repeat echocardiogram. Check BNP. Caution with IV hydration. Continue metoprolol. Hydronephrosis: Abdominal CT showed "chronic moderate to severe hydronephrosis bilaterally of undetermined etiology". UA unremarkable. Consult patient's urologist, Dr. Eduardo. Monitor urine output. Confusion: Per ED report, the patient's son and noted that she's been confused in the past few days. This could be a delirium due to constipation as above vs chronic dementia vs other, unsure of mental status baseline. Hyperkalemia: Potassium 2.5. Replace IV and orally. Check magnesium. Follow- up BMP. Acute kidney injury: Creatinine 1.3, previously 1.04 on 02/05/16. Patient appears volume overloaded on exam, possibly a cardiorenal component. Caution with IVF. Hold home Lasix and HCTZ for now. Follow-up BMP. Diabetes mellitus: Hold home metformin. SSI with Accu-Cheks. Chronic anticoagulation: Secondary to atrial fibrillation and history of DVT/ PE. INR subtherapeutic, continue Coumadin and consult pharmacy for dosing. Other chronic medical conditions include HLD, GERD, hypothyroidism, anemia/ leukopenia: Stable at this time and will continue home medications as indicated Written by Harry Meyer, acting as scribe for Dr. Wren on 03/09/16 at 17:14. The documentation accurately reflects the work performed [id number] by me Dr. Wren on 03/09/16 at 17:14. Discussed Condition With Patient Harry Meyer Mar 09, 2016 16:41 Cass Wren MD Mar 10, 2016 16:58
[2016-03-09 16:47] LABS: BLOOD, URINE NEG (NEG); GLUCOSE,URINE NEG (NEG); HYALINE CAST, URINE 5 /lpf (RARE); KETONE, URINE NEG (NEG); NITRITE,URINE NEG (NEG); PH, URINE 6.5 (5.0-8.5); URINE COLOR LIGHT-YELLOW (YELLW/STRAW)
[2016-03-09 16:48] LABS: COMMENT (UR) CULT NOT INDICATED; CULTURE IF INDICATED CULT NOT INDICATED
[2016-03-09] MEDS ORDERED: DOCUSATE SODIUM 50 MG/SENNA 8.6 MG TAB PO PRN (17:30)
[2016-03-09 17:39] VITALS: BP 143/84
[2016-03-09] MEDS: SODIUM CHLOR 0.9% 1000 ML INJ 1,000 ML IV SCH (17:54)
[2016-03-09] MEDS ORDERED: traMADol HCL 50 MG TAB PO SCH (18:00)
[2016-03-09] MEDS: WARFARIN SOD 5 MG TAB PO SCH (18:14)
[2016-03-09] MEDS: POTASSIUM CHLOR 20 MEQ PREMIX 100 ML IV SCH (18:15)
[2016-03-09] MEDS ORDERED: LACTULOSE SYRUP 20 GM/30 ML CUP PO ONE (18:30)
[2016-03-09] MEDS ORDERED: MAGNESIUM HYDROXIDE SUSP 30 ML CUP PO ONE (18:30)
[2016-03-09 20:00] VITALS: BP 138/88; PULSE 85; RESP 16; TEMP 96.7; O2SAT 98
[2016-03-09] MEDS: SODIUM CHLORIDE 0.9% FLUSH 5 ML FLUSH FLUSH SCH (20:19)
[2016-03-09] MEDS: INSULIN ASPART SUPPLEMENTAL SCALE SQ SCH (20:19)
[2016-03-09] MEDS: DOCUSATE SODIUM 50 MG/SENNA 8.6 MG TAB PO SCH (20:20)
[2016-03-09] MEDS: GABAPENTIN 300 MG CAP PO SCH (20:20)
[2016-03-09] MEDS: PRAVASTATIN SOD 40 MG TAB PO SCH (20:20)
[2016-03-09] MEDS: ONDANSETRON HCL 4 MG/2 ML VIAL IVP PRN ×2 (20:28→20:29)
[2016-03-09] MEDS ORDERED: NON-FORMULARY DRUG (Omega-3 Fatty Acids (Fish Oil 1200 mg) 1,200 MG) PO SCH (21:00)
[2016-03-09] MEDS: traMADol HCL 50 MG TAB PO PRN (22:23)
[2016-03-09] MEDS: ERYTHROMYCIN EC 250 MG TABEC PO SCH (22:59)
[2016-03-10] VITALS (8 sets, daily range): BP systolic 107–145; BP diastolic 61–91; PULSE 68–94; RESP 18–22; TEMP 96.2–98; O2SAT 92–98
[2016-03-10] MEDS: LEVOTHYROXINE SODIUM 50 MCG TAB PO SCH (04:39)
[2016-03-10] MEDS: ERYTHROMYCIN EC 250 MG TABEC PO SCH ×3 (04:39→20:59)
[2016-03-10] MEDS: SODIUM CHLOR 0.9% 1000 ML INJ 1,000 ML IV SCH (04:39)
[2016-03-10 05:42] LABS: AUTOMATED NEUTROPHIL # 0.7 TH/MM3 (1.8-7.7); BASOPHIL % 0.7 % (0.0-2.0); EOSINOPHIL % 0.3 % (0.0-4.0); HEMATOCRIT 27.1 % (35.0-46.0); LYMPH % 51.3 % (9.0-44.0); LYMPHOCYTE # 1.1 TH/MM3 (1.0-4.8); MEAN CELL VOLUME 104.6 FL (80.0-100.0); MEAN CORPUSCULAR HEMOGLOBIN 35.2 PG (27.0-34.0); MEAN CORPUSCULAR HGB CONC 33.7 % (32.0-36.0); MONO % 17.1 % (0.0-8.0); NEUT % 30.6 % (16.0-70.0); PLATELET COUNT 199 TH/MM3 (150-450); RED BLOOD COUNT 2.59 MIL/MM3 (4.00-5.30); WHITE BLOOD COUNT 2.1 TH/MM3 (4.0-11.0)
[2016-03-10 05:51] LABS: HEMO FLAGS AUTO DIFF
[2016-03-10 06:04] LABS: BICARBONATE 32.5 MEQ/L (21.0-32.0)
[2016-03-10] MEDS: INSULIN ASPART SUPPLEMENTAL SCALE SQ SCH ×4 (06:07→20:56)
[2016-03-10 06:12] LABS: INTERNATIONAL NORMALIZED RATIO 1.7 RATIO; PROTHROMBIN TIME - PATIENT 19.5 SEC (9.8-11.6)
[2016-03-10] MEDS: MULTIVITAMINS/MINERALS THERAPEUTIC TAB PO SCH (08:22)
[2016-03-10] MEDS: POLYETHYLENE GLYCOL 17 GM PKG PO SCH (08:22)
[2016-03-10] MEDS: POTASSIUM CL 40 MEQ/30 ML LIQ UDC PO SCH (08:22)
[2016-03-10] MEDS: METOPROLOL SUCCINATE 25 MG EXTENDED RELEASE TAB PO SCH (08:22)
[2016-03-10] MEDS: GABAPENTIN 300 MG CAP PO SCH ×2 (08:22→20:55)
[2016-03-10] MEDS: TOLTERODINE TARTRATE 2 MG CAP LA PO SCH (08:22)
[2016-03-10] MEDS: DOCUSATE SODIUM 50 MG/SENNA 8.6 MG TAB PO SCH ×2 (08:23→20:55)
[2016-03-10] MEDS: SODIUM CHLORIDE 0.9% FLUSH 5 ML FLUSH FLUSH SCH ×2 (08:23→20:55)
[2016-03-10 08:38] LABS: BANDS 4 % (0-6); CORRECTED NUCLEATED RBC 1 /100 WBC (0-0); NEUTROPHIL # MANUAL DIFF 0.8 TH/MM3 (1.8-7.7); PLATELET ESTIMATE SMEAR NORMAL (NORMAL); PLATELET MORPHOLOGY NORMAL (NORMAL); POLYS (SEG NEUTROPHILS) 36 % (16-70); SCAN/DIFF FINAL DIFF MANUAL; WBC DIFF SAMPLE 100
[2016-03-10 08:39] LABS: ACANTHOCYTES OCC (NORMAL); OVALOCYTES 1+ (NORMAL)
[2016-03-10 08:40] LABS: KERATOCYTES OCC (NORMAL)
--- NOTE | 2016-03-10 09:14 | HHI.PR ---
Subjective Remarks In the chair eating breakfast. Says she feels tired. However says she feels much better than yesterday. Abdominal pain improved, seems she is tolerating food. No n/v/d/c. Denies chest pain. Says did not have a BM yet. Objective Vitals Vital Signs Date Time Temp Pulse Resp B/P Pulse Ox O2 Delivery O2 Flow Rate FiO2 03/10/16 08:00 97.8 83 20 143/88 95 03/10/16 04:00 98.0 83 18 145/90 95 03/10/16 00:00 97.3 85 18 135/91 96 03/09/16 20:00 96.7 85 16 138/88 98 03/09/16 16:26 99 Nasal Cannula 2.00 03/09/16 15:01 77 14 131/79 100 Nasal Cannula 2 03/09/16 15:01 14 03/09/16 13:27 03/09/16 13:19 98.3 96 20 131/84 95 Room Air I/O 03/09/16 03/09/16 03/09/16 03/10/16 03/10/16 03/10/16 07:00 15:00 23:00 07:00 15:00 23:00 Intake Total 945 ml 605 ml Balance 945 ml 605 ml Intake Oral 320 ml 120 ml IV Total 625 ml 485 ml # Voids 5 3 # Bowel Movements 0 0 Result Diagram: 03/10/16 0519 03/10/16 0519 Imaging Last Impressions Chest X-Ray 03/09/16 1414 Signed Impressions: Service Date/Time: Wednesday, March 09, 2016 14:40 - CONCLUSION: 1. Small left pleural effusion. 2. Cardiomegaly. 3. Degenerative changes and scoliosis of the thoracolumbar spine. Ervin Lilly MD Abdomen/Pelvis CT 03/09/16 1414 Signed Impressions: Service Date/Time: Wednesday, March 09, 2016 15:26 - CONCLUSION: 1. Chronic moderate to severe hydronephrosis bilaterally of indeterminate etiology. 2. Mild diffuse urinary bladder wall thickening. 3. Uncomplicated sigmoid diverticulosis. 4. Minimal prominence of the extrahepatic and central intrahepatic biliary system. Correlation with alkaline phosphatase and bilirubin levels is suggested to rule out biliary obstruction. 5. Small to moderate sized left pleural effusion and tiny right pleural effusion. 4. Cardiomegaly. 5. Atelectasis within the lingula of the left upper lobe. 6. Degenerative changes and scoliosis of the thoracolumbar spine. Ervin Lilly MD Objective Remarks GENERAL: Well-developed well-nourished. In no acute distress. SKIN: Warm and dry. No lesions noted. HEENT: Normocephalic. Pupils equal and round. Mucous membranes pink and moist. CARDIOVASCULAR: Irregular rate and rhythm. No murmur appreciated. RESPIRATORY: No accessory muscle use. Clear to auscultation. Bibasilar crackles. GASTROINTESTINAL: Abdomen soft, non-tender, nondistended. Bowel sounds x4. MUSCULOSKELETAL: Left lower extremity with a compression dressing, patient states is for DVT. 2+ lower extremity edema. No clubbing or cyanosis. NEUROLOGICAL: Awake and alert. No focal neurological deficits. Moves upper and lower extremities spontaneously. Normal speech. PSYCHIATRIC: Pleasantly confused mood and affect; insight and judgment fair to poor. A/P Assessment and Plan 89-year-old female with past medical history of HTN, HLD, DM, A. fib, GERD, PE, hypothyroidism, CHF, h/o gastric CA who presented with abdominal pain Abdominal pain: Acute on chronic. Complicated intra-abdominal history of gastric cancer multiple abdominal surgeries. Etiology of the pain could be multifactorial. Abdominal CT reviewed, numerous changes that appear to be chronic, unsure if any acute process. Suspect symptoms worsened by constipation , will give cathartics, laxatives, enemas. Consider GI consult if symptoms persist. History of diastolic CHF: Patient appears volume overloaded with pulmonary crackles and lower extremity on exam and left pleural effusion seen on imaging, however patient denies any symptoms. Previous echocardiogram from 2015 reviewed , essentially within normal limits, repeat echocardiogram. Check BNP. Caution with IV hydration. Continue metoprolol. Hydronephrosis: Abdominal CT showed "chronic moderate to severe hydronephrosis bilaterally of undetermined etiology". UA unremarkable. Consult patient's urologist, Dr. Eduardo. Monitor urine output. Has a good UOP. Confusion: Appears still confused. poor judgement. Per ED report, the patient's son and noted that she's been confused in the past few days. This could be a delirium due to constipation as above vs chronic dementia vs other, unsure of mental status baseline. Hypokalemia: Potassium 2.5. Replace IV and orally. Check magnesium. Follow- up BMP. Will DC IVF NS. Start 1/2 NS NaCL with 10 mEq KCl as K still low. Monitor electrolytes closely. Acute kidney injury: Creatinine 1.3, previously 1.04 on 02/05/16. Patient appears volume overloaded on exam, possibly a cardiorenal component. Caution with IVF. Hold home Lasix and HCTZ for now. Follow-up BMP. Change NS IVF to Gentle IV hydration with 1/2 NCL with KCL at 60cc. Monitor kidney function. Will consider nephrology consult. Diabetes mellitus: Hold home metformin. SSI with Accu-Cheks. Chronic anticoagulation: Secondary to atrial fibrillation and history of DVT/ PE. INR subtherapeutic, continue Coumadin and consult pharmacy for dosing. Anemia: macrocytic. Will check B12, folate, iron panel, ferritin, Will check Vit D. Other chronic medical conditions include HLD, GERD, hypothyroidism: Stable at this time and will continue home medications as indicated Discussed with the patient, nurse. Cass Wren MD Mar 10, 2016 09:14
[2016-03-10] MEDS: POTASSIUM CHLORIDE INJ 10 MEQ in SODIUM CHLOR 0.45% 1000 ML INJ 1,000 ML IV SCH (11:21)
[2016-03-10 11:57] LABS: FERRITIN 126 NG/ML (8-252); TRANSFERRIN IRON PROFILE 204 MG/DL (200-360)
[2016-03-10] MEDS ORDERED: ESTR42.5V VAGINAL (13:57)
--- NOTE | 2016-03-10 14:00 | PD.CONS ---
[facility] Service Urology Consult Requested By Reason for Consult Bilateral Hydronephrosis, recurrent UTIs Primary Care Physician Leonor Ulloa MD Diagnosis: History of Present Illness 89 yo female h/o recurrent UTIs, urinary incontinence presents with worsening, chronic abdominal pain for several days. She has intermittent abdominal pain off and on for "quite some time". She denies fevers, chills, nausea, vomiting, flank pain. She had CT A/P without contrast done which showed bilateral hydroureteronephrosis. Urology was consulted. Her Urologist is Dr. Eduardo. She saw him several weeks ago due to significant dysuria. She thought she had a UTI. However, her urine culture was negative. She has had this burning for months, despite multiple antibiotics. Denies h/o kidney stones. She leaks urine daily as she has trouble making it to the bathroom in time. She also has issues with chronic constipation. Review of Systems Constitutional: COMPLAINS OF: Weight loss, DENIES: Diaphoretic episodes, Fatigue, Fever, Weight gain, Chills, Dizziness, Change in appetite, Night Sweats Endocrine: DENIES: Abnorml menstrual pattern, Heat/cold intolerance, Polydipsia , Polyuria, Polyphagia Eyes: DENIES: Blurred vision, Diplopia, Eye inflammation, Eye pain, Vision loss , Photosensitivity, Double Vision Ears, nose, mouth, throat: DENIES: Tinnitus, Hearing loss, Vertigo, Nasal discharge, Oral lesions, Throat pain, Hoarseness, Ear Pain, Running Nose, Epistaxis, Sinus Pain, Toothache, Odynophagia Respiratory: DENIES: Apneas, Cough, Snoring, Wheezing, Hemoptysis, Sputum production, Shortness of breath Cardiovascular: DENIES: Chest pain, Palpitations, Syncope, Dyspnea on Exertion , PND, Lower Extremity Edema, Orthopnea, Claudication Gastrointestinal: COMPLAINS OF: Abdominal pain, DENIES: Black stools, Bloody stools, Constipation, Diarrhea, Nausea, Vomiting, Difficulty Swallowing, Anorexia Genitourinary: COMPLAINS OF: Urgency, Dysuria, DENIES: Abnormal vaginal bleeding, Dysmenorrhea, Dyspareunia, Sexual dysfunction, Urinary frequency, Urinary incontinence, Hematuria, Nocturia, Vaginal discharge Musculoskeletal: DENIES: Joint pain, Muscle aches, Stiffness, Joint Swelling, Back pain, Neck pain Integumentary: DENIES: Abnormal pigmentation, Pruritus, Rash, Nail changes, Breast masses, Breast skin changes, Nipple discharge Hematologic/lymphatic: DENIES: Bruising, Lymphadenopathy Immunologic/allergic: DENIES: Eczema, Urticaria Neurologic: DENIES: Abnormal gait, Headache, Localized weakness, Paresthesias, Seizures, Speech Problems, Tremor, Poor Balance Psychiatric: DENIES: Anxiety, Confusion, Mood changes, Depression, Hallucinations, Agitation, Suicidal Ideation, Homicidal Ideation, Delusions Past Family Social History Past Medical History bilateral hydronephrosis, recurrent UTIs, atrial fibrillation, CAD, hypothyroidism, stress incontinence, HTN, h/o PE, h/o gastric cancer Past Surgical History Gastric Bypass, angioplasty, pacemaker, hysterectomy, Mid Urethral Sling Reported Medications Lasix, Coumadin Allergies: Coded Allergies: Aspirin (Verified Allergy, Severe, 11/22/14) MILD REACTION; EXCESSIVE SALIVA Celebrex (Verified Allergy, Severe, RASH, 11/22/14) MILD REACTION-RASH Sulfa (Verified Allergy, Severe, Rash, 11/22/14) PT STATES SHE IS NOT ALLERGIC TO THIS MED Active Ordered Medications Lasix, Coumadin, Rocephin, Lovenox Family History Denies urolithiasis, malignancies Social History denies tobacco, EtOH, illicit drugs Physical Exam Vital Signs Vital Signs Date Time Temp Pulse Resp B/P Pulse Ox O2 Delivery O2 Flow Rate FiO2 03/10/16 12:00 96.7 68 20 124/70 95 03/10/16 10:10 95 21 03/10/16 08:20 81 03/10/16 08:00 97.8 83 20 143/88 95 03/10/16 04:00 98.0 83 18 145/90 95 03/10/16 00:00 97.3 85 18 135/91 96 03/09/16 20:00 96.7 85 16 138/88 98 03/09/16 16:26 99 Nasal Cannula 2.00 03/09/16 15:01 77 14 131/79 100 Nasal Cannula 2 03/09/16 15:01 14 Physical Exam GENERAL: This is a well-nourished, well-developed patient, in no apparent distress. SKIN: No rashes, ecchymoses or lesions. Cool and dry. HEAD: Atraumatic. Normocephalic. No temporal or scalp tenderness. EYES: Pupils equal round and reactive. Extraocular motions intact. No scleral icterus. No injection or drainage. ENT: Nose without bleeding, purulent drainage or septal hematoma. Throat without erythema, tonsillar hypertrophy or exudate. Uvula midline. Airway patent. NECK: Trachea midline. No JVD or lymphadenopathy. Supple, nontender, no meningeal signs. CARDIOVASCULAR: Regular rate and rhythm without murmurs, gallops, or rubs. RESPIRATORY: Clear to auscultation. Breath sounds equal bilaterally. No wheezes , rales, or rhonchi. GASTROINTESTINAL: Abdomen soft, non-tender, nondistended. No hepato-splenomegaly , or palpable masses. No guarding. MUSCULOSKELETAL: Extremities without clubbing, cyanosis, or edema. No joint tenderness, effusion, or edema noted. No calf tenderness. Negative Homans sign bilaterally. NEUROLOGICAL: Awake and alert. Cranial nerves II through XII intact. Motor and sensory grossly within normal limits. Five out of 5 muscle strength in all muscle groups. Normal speech. Laboratory Laboratory Tests Test 03/09/16 03/09/16 03/09/16 03/10/16 14:12 14:20 15:00 05:19 Lactic Acid Level 1.6 White Blood Count 2.4 2.1 Red Blood Count 2.78 2.59 Hemoglobin 9.9 9.1 Hematocrit 29.0 27.1 Mean Corpuscular Volume 104.1 104.6 Mean Corpuscular Hemoglobin 35.5 35.2 Mean Corpuscular Hemoglobin 34.1 33.7 Concent Red Cell Distribution Width 15.3 16.0 Platelet Count 228 199 Mean Platelet Volume 10.2 9.7 Neutrophils (%) (Auto) 40.1 30.6 Lymphocytes (%) (Auto) 42.3 51.3 Monocytes (%) (Auto) 16.5 17.1 Eosinophils (%) (Auto) 0.2 0.3 Basophils (%) (Auto) 0.9 0.7 Neutrophils # (Auto) 1.0 0.7 Lymphocytes # (Auto) 1.0 1.1 Monocytes # (Auto) 0.4 0.4 Eosinophils # (Auto) 0.0 0.0 Basophils # (Auto) 0.0 0.0 CBC Comment DIFF FINAL AUTO DIFF Differential Comment FINAL DIFF MANUAL Prothrombin Time 19.1 19.5 Prothromb Time International 1.7 1.7 Ratio Activated Partial 32.6 Thromboplast Time Sodium Level 141 145 Potassium Level 2.5 3.0 Chloride Level 100 102 Carbon Dioxide Level 31.6 32.5 Anion Gap 9 11 Blood Urea Nitrogen 24 24 Creatinine 1.30 1.33 Estimat Glomerular Filtration 39 38 Rate Random Glucose 112 106 Calcium Level 8.7 8.2 Total Bilirubin 0.9 Aspartate Amino Transf 20 (AST/SGOT) Alanine Aminotransferase 22 (ALT/SGPT) Alkaline Phosphatase 66 B-Type Natriuretic Peptide 393 Total Protein 6.1 Albumin 3.1 Lipase 63 Urine Color LIGHT-YELLOW Urine Turbidity CLEAR Urine pH 6.5 Urine Specific [place] 1.007 Urine Protein NEG Urine Glucose (UA) NEG Urine Ketones NEG Urine Occult Blood NEG Urine Nitrite NEG Urine Bilirubin NEG Urine Urobilinogen LESS THAN 2.0 Urine Leukocyte Esterase NEG Urine RBC LESS THAN 1 Urine WBC LESS THAN 1 Urine Hyaline Casts 5 Microscopic Urinalysis Comment CULT NOT INDICATED Differential Total Cells 100 Counted Neutrophils % (Manual) 36 Band Neutrophils % 4 Lymphocytes % 49 Monocytes % 11 Neutrophils # (Manual) 0.8 Nucleated Red Blood Cells 1 Platelet Estimate NORMAL Platelet Morphology Comment NORMAL Ovalocytes 1+ Acanthocytes OCC Keratocytes OCC Magnesium Level 2.0 Test 03/10/16 10:42 Iron Level 53 Total Iron Binding Capacity 286 Percent Iron Saturation 18.6 Ferritin 126 Vitamin B12 Level GREATER THAN 2000 25-Hydroxy Vitamin D Total 23.1 Folate GREATER THAN 20.0 Result Diagram: 03/10/1651803/10/[address] A/P without Contrast images reviewed. Agree with radiologist report. Bilateral hydroureteronephrosis down to level of bladder, stable in appearance from prior imaging. Assessment and Plan Assessment and Plan -Bilateral hydronephrosis chronic in nature. It is presents on multiple prior imaging studies. She is asymptomatic with adequate kidney function. Recommend conservative management. If she develops pain or kidney function worsens, will obtain Lasix Renogram to r/o obstruction. -Dysuria likely related to atrophic vaginitis. Will start her on topical Estrace Cream. Script in chart. -F/U as outpatient for cystoscopy. -Thank you for this consult. King Lujan MD Mar 10, 2016 14:00
[2016-03-10] MEDS ORDERED: WARFARIN SOD 1 MG TAB PO ONE (16:00)
[2016-03-10] MEDS: WARFARIN SOD 5 MG TAB PO SCH (16:13)
[2016-03-10] MEDS: PRAVASTATIN SOD 40 MG TAB PO SCH (20:55)
[2016-03-10] MEDS: ESTRADIOL 0.1 MG/GM VAG CREAM 42.5 GM VAGINAL SCH (20:56)
--- NOTE | 2016-03-10 21:45 | EKG ---
Date Performed: 03/09/2016 Time Performed: 14:52:15 PTAGE: 89 years EKG: ATRIAL FIBRILLATION ST DEVIATION AND MODERATE T-WAVE ABNORMALITY, CONSIDER ANTERIOR ISCHEMI A ABNORMAL ECG PREVIOUS TRACING : 02/05/2016 20.12 DOCTOR: Ritchie Almonte Interpretating Date/Time 03/10/2016 21:34:47
[2016-03-11] VITALS (8 sets, daily range): BP systolic 121–136; BP diastolic 74–90; PULSE 76–86; RESP 16–22; TEMP 96–98.1; O2SAT 95–99
[2016-03-11] MEDS: traMADol HCL 50 MG TAB PO PRN (00:44)
[2016-03-11] MEDS: POTASSIUM CHLORIDE INJ 10 MEQ in SODIUM CHLOR 0.45% 1000 ML INJ 1,000 ML IV SCH ×2 (05:20→23:18)
[2016-03-11 05:53] LABS: HEMATOCRIT 26.3 % (35.0-46.0); MEAN CORPUSCULAR HEMOGLOBIN 35.4 PG (27.0-34.0); MEAN CORPUSCULAR HGB CONC 33.8 % (32.0-36.0); PLATELET COUNT 207 TH/MM3 (150-450); RED CELL DISTRIBUTION WIDTH 16.5 % (11.6-17.2); WHITE BLOOD COUNT 2.8 TH/MM3 (4.0-11.0)
[2016-03-11 05:55] LABS: INTERNATIONAL NORMALIZED RATIO 1.8 RATIO; PROTHROMBIN TIME - PATIENT 20.7 SEC (9.8-11.6)
[2016-03-11 05:56] LABS: HEMO FLAGS AUTO DIFF
[2016-03-11] MEDS: ERYTHROMYCIN EC 250 MG TABEC PO SCH ×3 (06:09→21:40)
[2016-03-11] MEDS: LEVOTHYROXINE SODIUM 50 MCG TAB PO SCH (06:09)
[2016-03-11] MEDS: INSULIN ASPART SUPPLEMENTAL SCALE SQ SCH ×4 (06:09→21:00)
[2016-03-11 06:26] LABS: BICARBONATE 31.2 MEQ/L (21.0-32.0); MAGNESIUM 2.2 MG/DL (1.5-2.5); POTASSIUM 3.4 MEQ/L (3.5-5.1)
[2016-03-11 06:59] LABS: BANDS 4 % (0-6); EOSINOPHILS 1 % (0-4); METAMYELOCYTES 1 % (0-1); NEUTROPHIL # MANUAL DIFF 0.9 TH/MM3 (1.8-7.7); POLYS (SEG NEUTROPHILS) 28 % (16-70); WBC DIFF SAMPLE 100
[2016-03-11 07:00] LABS: KERATOCYTES OCC (NORMAL); OVALOCYTES 1+ (NORMAL); PLATELET ESTIMATE SMEAR NORMAL (NORMAL); PLATELET MORPHOLOGY NORMAL (NORMAL); SCAN/DIFF FINAL DIFF MANUAL
[2016-03-11] MEDS: SODIUM CHLORIDE 0.9% FLUSH 5 ML FLUSH FLUSH SCH ×2 (08:26→21:49)
[2016-03-11] MEDS: POLYETHYLENE GLYCOL 17 GM PKG PO SCH (08:29)
[2016-03-11] MEDS: DOCUSATE SODIUM 50 MG/SENNA 8.6 MG TAB PO SCH ×2 (08:29→21:00)
[2016-03-11] MEDS: GABAPENTIN 300 MG CAP PO SCH ×2 (08:32→21:40)
[2016-03-11] MEDS: METOPROLOL SUCCINATE 25 MG EXTENDED RELEASE TAB PO SCH (08:32)
[2016-03-11] MEDS: MULTIVITAMINS/MINERALS THERAPEUTIC TAB PO SCH (08:32)
[2016-03-11] MEDS: TOLTERODINE TARTRATE 2 MG CAP LA PO SCH (08:32)
[2016-03-11] MEDS: ESTRADIOL 0.1 MG/GM VAG CREAM 42.5 GM VAGINAL SCH ×2 (08:34→21:42)
[2016-03-11] MEDS: POTASSIUM CL 40 MEQ/30 ML LIQ UDC PO SCH (08:35)
[2016-03-11] MEDS ORDERED: POTASSIUM CL 40 MEQ/30 ML LIQ UDC PO ONE (13:45)
[2016-03-11] MEDS ORDERED: MORPHINE SULFATE 4 MG/ML INJ IV ONE (14:15)
--- NOTE | 2016-03-11 14:35 | HHI.PR ---
Subjective Remarks Patient with severe chest pain with nausea, no vomiting. She does have dysphagia , she was supposed to see GI tomorrow she did not do EGD with dilation at the other hospital as she did signed AMA. Family at bedside also providing some of the history . Patient in acute distress with severe chest pain, her HR is running in 170s. Her K is low replaced IV, and add extra PO but patient was refusing initially. She is also telling me she is sad and depressed, she is also not remembering things. Will ask psych on consult as well. No fever or chills. She did eat earlier today and she did start having dry heaves and severe epigastric pain. Objective Vitals Vital Signs Date Time Temp Pulse Resp B/P Pulse Ox O2 Delivery O2 Flow Rate FiO2 03/11/16 12:48 98 21 03/11/16 12:00 96.4 84 17 122/80 96 03/11/16 08:00 98.1 86 17 130/85 95 03/11/16 04:00 96.4 76 22 132/90 96 03/11/16 01:52 18 03/11/16 00:00 98.0 83 20 136/76 96 03/10/16 20:00 83 03/10/16 20:00 97.9 80 22 119/84 98 03/10/16 16:00 96.2 94 20 107/61 92 I/O 03/10/16 03/10/16 03/10/16 03/11/16 03/11/16 03/11/16 07:00 15:00 23:00 07:00 15:00 23:00 Intake Total 605 ml 1031 ml 677 ml 696 ml Balance 605 ml 1031 ml 677 ml 696 ml Intake Oral 120 ml 480 ml 240 ml 240 ml IV Total 485 ml 551 ml 437 ml 456 ml # Voids 3 5 2 3 # Bowel Movements 0 0 0 0 Result Diagram: 03/11/16 0453 03/11/16 045 Imaging Last Impressions Chest X-Ray 03/09/16 1414 Signed Impressions: Service Date/Time: Wednesday, March 09, 2016 14:40 - CONCLUSION: 1. Small left pleural effusion. 2. Cardiomegaly. 3. Degenerative changes and scoliosis of the thoracolumbar spine. Ervin Lilly MD Abdomen/Pelvis CT 03/09/16 1414 Signed Impressions: Service Date/Time: Wednesday, March 09, 2016 15:26 - CONCLUSION: 1. Chronic moderate to severe hydronephrosis bilaterally of indeterminate etiology. 2. Mild diffuse urinary bladder wall thickening. 3. Uncomplicated sigmoid diverticulosis. 4. Minimal prominence of the extrahepatic and central intrahepatic biliary system. Correlation with alkaline phosphatase and bilirubin levels is suggested to rule out biliary obstruction. 5. Small to moderate sized left pleural effusion and tiny right pleural effusion. 4. Cardiomegaly. 5. Atelectasis within the lingula of the left upper lobe. 6. Degenerative changes and scoliosis of the thoracolumbar spine. Ervin Lilly MD Objective Remarks GENERAL: Well-developed well-nourished. In no acute distress. SKIN: Warm and dry. No lesions noted. HEENT: Normocephalic. Pupils equal and round. Mucous membranes pink and moist. CARDIOVASCULAR: Irregular rate and rhythm. No murmur appreciated. RESPIRATORY: No accessory muscle use. Clear to auscultation. Bibasilar crackles. GASTROINTESTINAL: Abdomen soft, non-tender, nondistended. Bowel sounds x4. MUSCULOSKELETAL: Left lower extremity with a compression dressing, patient states is for DVT. 2+ lower extremity edema. No clubbing or cyanosis. NEUROLOGICAL: Awake and alert. No focal neurological deficits. Moves upper and lower extremities spontaneously. Normal speech. PSYCHIATRIC: Pleasantly confused mood and affect; insight and judgment fair to poor. A/P Assessment and Plan 89-year-old female with past medical history of HTN, HLD, DM, A. fib, GERD, PE, hypothyroidism, CHF, h/o gastric CA who presented with abdominal pain Abdominal pain: Acute on chronic. Complicated intra-abdominal history of gastric cancer multiple abdominal surgeries. Etiology of the pain could be multifactorial. Abdominal CT reviewed, numerous changes that appear to be chronic, unsure if any acute process. Suspect symptoms worsened by constipation , will give cathartics, laxatives, enemas. GI consult Dysphagia / esophageal strictures/ spasm? Consult GI . Discussed with the patient/family she might need Chest pain might with tachycardia HR in 175s briefly. Will check troponin. Will check EKG. Consult her cardiology doctor Alexx Day. Left leg wound present on admission. Change dressing daily: single layer xeroform and dry cover daily.Discussed with wound care nurse. LE edema; will do doppler US bilat. Patient has a h/o LE DVT History of diastolic CHF: Patient appears volume overloaded with pulmonary crackles and lower extremity on exam and left pleural effusion seen on imaging, however patient denies any symptoms. Previous echocardiogram from 2014 reviewed , essentially within normal limits, repeat echocardiogram. Check BNP. Caution with IV hydration. DC IVF as patient can have po. Continue metoprolol. Hydronephrosis: Abdominal CT showed "chronic moderate to severe hydronephrosis bilaterally of undetermined etiology". UA unremarkable. Consult patient's urologist, Dr. Eduardo. Monitor urine output. Has a good UOP. Confusion: Appears still confused. poor judgement. Discussed with family ( 2 sons and daughter) patient's son and noted that she's been confused lately, and is worsening. She also says she is depressed, per family she also is depressed lately. Patient says she is sad an cries, and says has no more tears ...Psychiatry consulted. Hypokalemia: Potassium 2.5 on admission . Replace IV and orally. Check magnesium. Follow-up BMP. Will DC IVF NS. Continue 1/2 NS NaCL with 10 mEq KCl as K still low. Monitor electrolytes closely. Acute kidney injury: Creatinine 1.3, previously 1.04 on 02/05/16. Patient appears volume overloaded on exam, possibly a cardiorenal component. Caution with IVF. Hold home Lasix and HCTZ for now. Follow-up BMP. Change NS IVF to Gentle IV hydration with 1/2 NCL with KCL at 60cc. Monitor kidney function. Will consider nephrology consult. Diabetes mellitus: Hold home metformin. SSI with Accu-Cheks. Chronic anticoagulation: Secondary to atrial fibrillation and history of DVT/ PE. INR subtherapeutic, continue Coumadin and consult pharmacy for dosing. Anemia: macrocytic. Will check B12, folate, iron panel, ferritin normal. Vit D is 23. . Other chronic medical conditions include HLD, GERD, hypothyroidism: Stable at this time and will continue home medications as indicated Discussed with the patient, nurse. Cass Wren MD Mar 11, 2016 14:35
[2016-03-11] MEDS: NYSTAT/DIPHENHY/LIDO MOUTHWASH (Adult) 120ML SWISH-SWAL ONE ×2 (14:45→16:35)
[2016-03-11] MEDS ORDERED: SUCRALFATE 1 GM TAB PO SCH (16:00)
[2016-03-11] MEDS: WARFARIN SOD 5 MG TAB PO SCH (16:35)
[2016-03-11] MEDS: NYSTAT/DIPHENHY/LIDO MOUTHWASH (Adult) 120ML SWISH-SWAL SCH ×2 (17:17→21:42)
--- NOTE | 2016-03-11 17:59 | PD.CONS ---
HPI History of Present Illness This is a 89 year old female with past medical history of HTN, HLD, DM, A. fib, GERD, PE (on Coumadin), hypothyroidism, CHF, h/o gastric CA who presented here for evaluation of on off abd pain. CT of abd showed urinary blader wall thickening, diverticulosis, prominence of extrahepatics duct, small pleural effusion, cardiomegaly and degenerative changes. We were consulted for dysphagia , she was scheduled to have EGD/dill at [facility] but patient left AMA and that wasn't done. She reports on going dysphagia for a long time. She denies nausea, vomiting abd pain, diarrhea or bleeding. LFTs normal. Cardiology was consulted for possible CHF and A-fib. labs revealed hypokalemia, anemia, and acute kidney insufficiency. (Kevin Gardner) PFSH Past Medical History Hypertension Hyperlipidemia Diabetes mellitus Atrial fibrillation History of PE on chronic anticoagulation GERD Hypothyroidism History of gastric cancer status post resection and radiation Chronic anemia/leukopenia CHF, diastolic Stress incontinence Past Surgical History Gastric cancer resection Javan-en-Y surgery Hysterectomy Cholecystectomy Pacemaker placement (Kevin Gardner) Coded Allergies: Aspirin (Verified Allergy, Severe, 11/22/14) MILD REACTION; EXCESSIVE SALIVA Celebrex (Verified Allergy, Severe, RASH, 11/22/14) MILD REACTION-RASH Sulfa (Verified Allergy, Severe, Rash, 11/22/14) PT STATES SHE IS NOT ALLERGIC TO THIS MED Medications Current Medications Medications (Trade) Dose Ordered Sig/Armin Route Start Time Stop Time Status Last Admin (NS Flush) 2 ml UNSCH PRN IVF 03/09/16 14:15 (NS Flush) 2 ml UNSCH PRN FLUSH 03/09/16 16:30 (NS Flush) 2 ml BID FLUSH 03/09/16 21:00 03/09/16 20:19 (Tylenol) 650 mg Q4H PRN PO 03/09/16 16:30 (Zofran Inj) 4 mg Q6H PRN IVP 03/09/16 16:30 03/09/16 20:29 (Compazine Supp) 25 mg Q12H PRN NE 03/09/16 16:30 (Dulcolax Supp) 10 mg DAILY PRN NE 03/09/16 16:30 (Milk Of Magnesia Liq) 30 ml Q12H PRN PO 03/09/16 16:30 (Senokot) 17.2 mg Q12H PRN PO 03/09/16 16:30 (Restoril) 15 mg HS PRN PO 03/09/16 16:30 (Erythromycin Ec) 250 mg Q8HR PO 03/09/16 22:00 03/11/16 14:26 (Neurontin) 300 mg BID PO 03/09/16 21:00 03/11/16 08:32 (Synthroid) 50 mcg DAILY@06 PO 03/10/16 06:00 03/11/16 06:09 (Toprol Xl) 25 mg DAILY PO 03/10/16 09:00 03/11/16 08:32 (Theragran M Tab) 1 tab DAILY PO 03/10/16 09:00 03/11/16 08:32 (Miralax) 17 gm DAILY PO 03/10/16 09:00 03/10/16 08:22 (Coumadin) 5 mg DAILY@1600 PO 03/09/16 17:38 03/11/16 16:35 (KCl 40 Meq/30 ml Liq) 2.53 meq DAILY PO 03/10/16 09:00 03/10/16 08:22 (Pravachol) 40 mg HS PO 03/09/16 21:00 03/10/16 20:55 (Detrol La) 2 mg DAILY PO 03/10/16 09:00 03/11/16 08:32 (D50w (Vial) Inj) 25 ml UNSCH PRN IV PUSH 03/09/16 16:30 (Glucagon Inj) 1 mg UNSCH PRN OTHER 03/09/16 16:30 (Teagan-Colace) 2 tab BID PO 03/09/16 21:00 03/10/16 20:55 (Teagan-Colace) 2 tab BID PRN PO 03/09/16 17:30 Tramadol HCl 50 mg 50 mg Q8H PRN PO 03/09/16 18:00 03/11/16 00:44 Pharmacy Profile Note 0 ml @ 0 mls/hr UNSCH OTHER 03/09/16 17:30 (KCl Inj/1/2 NS 1000 ml Inj) 1,005 ml @ 60 mls/hr [id number] IV 03/10/16 11:00 03/12/16 10:59 03/11/16 05:20 (Estrace 0.01% Vag Cream) 1 appl BID VAGINAL 03/10/16 21:00 03/11/16 08:34 (Carafate) 1 gm BIDAC PO 03/11/16 16:00 (Magic Mouthwash Adult Liq) 5 ml QID SWISH-SWAL 03/11/16 18:00 Family History Mother had high blood pressure and severe arthritis Social History Rare alcohol use Denies any tobacco use Lives in independent living facility (Kevin Gardner) Review of Systems Constitutional: COMPLAINS OF: Fatigue, DENIES: Chills Eyes: DENIES: Double Vision Ears, nose, mouth, throat: DENIES: Hoarseness Respiratory: DENIES: Shortness of breath Cardiovascular: COMPLAINS OF: Lower Extremity Edema, DENIES: Syncope Gastrointestinal: COMPLAINS OF: Constipation, Difficulty Swallowing, DENIES: Abdominal pain, Black stools, Bloody stools, Diarrhea, Nausea, Vomiting, Anorexia, Odynophagia, Swelling of Abdomen, Heartburn, Hematemesis Genitourinary: DENIES: Hematuria Musculoskeletal: DENIES: Neck pain Integumentary: DENIES: Jaundice Hematologic/lymphatic: DENIES: Bruising Immunologic/allergic: DENIES: Eczema Neurologic: DENIES: Abnormal gait Psychiatric: DENIES: Anxiety (Kevin Gardner) GI Exam Vitals I&O Vital Signs Date Time Temp Pulse Resp B/P Pulse Ox O2 Delivery O2 Flow Rate FiO2 03/11/16 16:00 96.0 80 16 127/74 99 03/11/16 12:48 98 21 03/11/16 12:00 96.4 84 17 122/80 96 03/11/16 08:00 98.1 86 17 130/85 95 03/11/16 04:00 96.4 76 22 132/90 96 03/11/16 01:52 18 03/11/16 00:00 98.0 83 20 136/76 96 03/10/16 20:00 83 03/10/16 20:00 97.9 80 22 119/84 98 I/O 03/10/16 03/10/16 03/10/16 03/11/16 03/11/16 03/11/16 07:00 15:00 23:00 07:00 15:00 23:00 Intake Total 605 ml 1031 ml 677 ml 696 ml 765 ml Balance 605 ml 1031 ml 677 ml 696 ml 765 ml Intake Oral 120 ml 480 ml 240 ml 240 ml 270 ml IV Total 485 ml 551 ml 437 ml 456 ml 495 ml # Voids 3 5 2 3 2 # Bowel Movements 0 0 0 0 0 Imaging Last Impressions Chest X-Ray 03/09/164 Signed Impressions: Service Date/Time: Wednesday, March 09, 2016 14:40 - CONCLUSION: 1. Small left pleural effusion. 2. Cardiomegaly. 3. Degenerative changes and scoliosis of the thoracolumbar spine. Ervin Lilly MD Abdomen/Pelvis CT 03/09/16 1414 Signed Impressions: Service Date/Time: Wednesday, March 09, 2016 15:26 - CONCLUSION: 1. Chronic moderate to severe hydronephrosis bilaterally of indeterminate etiology. 2. Mild diffuse urinary bladder wall thickening. 3. Uncomplicated sigmoid diverticulosis. 4. Minimal prominence of the extrahepatic and central intrahepatic biliary system. Correlation with alkaline phosphatase and bilirubin levels is suggested to rule out biliary obstruction. 5. Small to moderate sized left pleural effusion and tiny right pleural effusion. 4. Cardiomegaly. 5. Atelectasis within the lingula of the left upper lobe. 6. Degenerative changes and scoliosis of the thoracolumbar spine. Ervin Lilly MD Laboratory Test 03/11/16 03/11/16 04:03 04:53 Thyroid Stimulating Hormone 1.410 uIU/ML 3rd Gen White Blood Count 2.8 TH/MM3 Red Blood Count 2.50 MIL/MM3 Hemoglobin 8.9 GM/DL Hematocrit 26.3 % Mean Corpuscular Volume 105.0 FL Mean Corpuscular Hemoglobin 35.4 PG Mean Corpuscular Hemoglobin 33.8 % Concent Red Cell Distribution Width 16.5 % Platelet Count 207 TH/MM3 Mean Platelet Volume 10.0 FL Neutrophils (%) (Auto) % Lymphocytes (%) (Auto) % Monocytes (%) (Auto) % Eosinophils (%) (Auto) % Basophils (%) (Auto) % Neutrophils # (Auto) TH/MM3 Lymphocytes # (Auto) TH/MM3 Monocytes # (Auto) TH/MM3 Eosinophils # (Auto) TH/MM3 Basophils # (Auto) TH/MM3 CBC Comment AUTO DIFF Differential Total Cells 100 Counted Neutrophils % (Manual) 28 % Band Neutrophils % 4 % Lymphocytes % 55 % Monocytes % 11 % Eosinophils % 1 % Neutrophils # (Manual) 0.9 TH/MM3 Metamyelocytes 1 % Differential Comment FINAL DIFF MANUAL Platelet Estimate NORMAL Platelet Morphology Comment NORMAL Ovalocytes 1+ Keratocytes OCC Prothrombin Time 20.7 SEC Prothromb Time International 1.8 RATIO Ratio Sodium Level 141 MEQ/L Potassium Level 3.4 MEQ/L Chloride Level 102 MEQ/L Carbon Dioxide Level 31.2 MEQ/L Anion Gap 8 MEQ/L Blood Urea Nitrogen 29 MG/DL Creatinine 1.34 MG/DL Estimat Glomerular Filtration 37 ML/MIN Rate Random Glucose 99 MG/DL Calcium Level 8.0 MG/DL Magnesium Level 2.2 MG/DL Physical Examination HEENT: normocephalic; atraumatic; no jaundice. NECK: Neck is supple, no JVD, no lymphadenopathy. CHEST: bibasilar crackles CARDIAC: irregular rate and rhythm with no murmur gallop or rubs. ABDOMEN: Soft, nondistended, nontender; no hepatosplenomegaly; bowel sounds are present in all four quadrants. EXTREMITIES: No clubbing, cyanosis, or edema. SKIN: Normal; no rash; no jaundice. PRACTICE NURSE: No focal deficits; alert and oriented. (Kevin Gardner) Assessment and Plan Plan - Dysphagia on going for a long time- will need EGD/dill, however, need to hold Coumadin 3 days prior and need cardiology clearance - Abd pain- she denies this for me, CT showed urinary blader wall thickening, diverticulosis, prominence of extrahepatics duct, small pleural effusion, cardiomegaly and degenerative changes. LFTs normal - Anemia- hh 8.9/26.3, no active bleeding - Hypokalemia per attending - ?CHF, A-fib cardiology consulted - Hydronephrosis, Urology on the case - AKF per attending Plan - MARCIE - EGD/dill once cleared by cardiology and Coumadin on hold for 3 days, this was discussed with patient, son, and nurse - Monitor hh - Supportive care - Patient seen and examined by Dr. Garibay and myself and this note is written on his behalf. (Kevin Gardner) Physician Comments Seen and examined, plan as above, further recommendations to follow. (John Garibay MD) Kevin Gardner [facility] Mar 11, 2016 17:59 John Garibay MD Mar 12, 2016 08:54
--- NOTE | 2016-03-11 19:03 | EC ---
Study Study Date:03/11/2016 STUDY CONCLUSIONS SUMMARY - Procedure narrative: Transthoracic echocardiography. Image quality was fair. The study was technically limited due to poor acoustic window availability. Scanning was performed from the parasternal, apical, and subcostal acoustic windows. - Left ventricle: The cavity size was normal. Systolic function was mildly to moderately reduced. The estimated ejection fraction was in the range of 40% to 45%. - Mitral valve: Moderately calcified annulus. Moderately thickened leaflets, . Moderate regurgitation. - Left atrium: The atrium was moderately dilated. - Tricuspid valve: Moderate regurgitation. If LV function is below 40, please consider prescribing an ACEI or ARB or document rationale for non-use. PROCEDURE DATA STUDY STATUS: Elective. Procedure: Transthoracic echocardiography. Image quality was fair. The study was technically limited due to poor acoustic window availability. Scanning was performed from the parasternal, apical, and subcostal acoustic windows. Study completion: The patient tolerated the procedure well. Transthoracic echocardiography. M-mode, complete 2D, complete spectral Doppler, and color Doppler. Height: Height: 64in. Weight: Weight: 148.7lb. Body mass index: BMI: 25.6kg/m^2. Body surface area: BSA: 1.73m^2. Patient status: Inpatient. CARDIAC ANATOMY LEFT VENTRICLE: The cavity size was normal. Systolic function was mildly to moderately reduced. The estimated ejection fraction was in the range of 40% to 45%. Images were inadequate for LV wall motion assessment. AORTIC VALVE: Trileaflet; moderately calcified leaflets. Doppler: There was no stenosis. No significant regurgitation. Valve area: 1.94cm^2 (Vmax). Indexed valve area: 1.12cm^2/m^2 (Vmax). MITRAL VALVE: Moderately calcified annulus. Moderately thickened leaflets, . Doppler: There was no evidence for stenosis. Moderate regurgitation. Peak gradient: 4mm Hg (D). LEFT ATRIUM: The atrium was moderately dilated. PULMONIC VALVE: Not well visualized. Doppler: There was no evidence for stenosis. No significant regurgitation. TRICUSPID VALVE: The valve appears to be grossly normal. Doppler: There was no evidence for stenosis. Moderate regurgitation. Patient weight: 148.7lb _Ejection fraction:_ 65-75% _Fractional shortening:_ 32% up to 5Kg 5-11.5Kg 11.6-22.9Kg 23-45Kg 45-57Kg Aortic Root 7-13 <17 13-22 17-27 17-27 LA diam 6-13 <23 24-38 33-47 37-40 RVID 10-17 7-15 7-15 7-18 8-17 LVIDd 12-22 <32 24-38 33-47 37-40 LVPW 2-4 3-6 5-7 6-8 7-8 IVS 2-4 3-6 5-7 6-8 7-8 BASIC MEASUREMENTS ADULT NORMAL Left ventricle LV internal dimension, ED, chordal *40.9 mm 43-52 level, PLAX LV internal dimension, ES, chordal 28.8 mm 23-38 level, PLAX Fractional shortening, chordal level, 30 % >29 PLAX LV posterior wall thickness, ED 7.86 mm IVS/LVPW ratio, ED *1.32 <1.3 Ventricular septum Septal thickness, ED 10.4 mm Aortic valve Leaflet separation 16 mm 15-26 Right ventricle RV internal dimension, ED, PLAX 20 mm 19-38 BASIC MEASUREMENTS ADULT NORMAL Aortic valve Leaflet separation 16 mm 15-26 Aorta Root diameter, ED 32 mm 20-37 Left atrium Anterior-posterior dimension, ES *49 mm 19-40 Anterior-posterior dimension index, ES *2.83 cm/m^2 <2.2 LA/aortic root ratio 1.53 DOPPLER MEASUREMENTS ADULT NORMAL Main pulmonary artery Pressure, S 29 mm Hg =30 Aortic valve Peak velocity, S 155 cm/s Valve area, Vmax 1.94 cm^2 Valve area index, Vmax 1.12 cm^2/m^2 Mitral valve Peak E-wave velocity 97.2 cm/s Peak A-wave velocity 30.6 cm/s Deceleration time 158 ms 150-230 Peak gradient, D 4 mm Hg Peak E/A ratio 3.2 Maximal regurgitant velocity 438 cm/s Tricuspid valve Regurgitant peak velocity 256 cm/s Peak RV-RA gradient, S 26 mm Hg Maximal regurgitant velocity 256 cm/s Systemic veins Estimated CVP 10 mm Hg Right ventricle RV pressure, S *36 mm Hg <30 Pulmonic valve Peak velocity, S 128 cm/s LEGEND: Mean values are shown as u=mean value. Asterisk (*) garces values outside specified normal range. Prepared and signed by Bernardino [id number]
[2016-03-11] MEDS: SUCRALFATE 1 GM/10 ML CUP PO SCH (21:40)
[2016-03-11] MEDS: PRAVASTATIN SOD 40 MG TAB PO SCH (21:40)
[2016-03-11] MEDS ORDERED: SOD PHOSPHATE/SOD BIPHOSPHATE (ADULT) ENEMA 133ML PR PRN (22:00)
[2016-03-11] MEDS ORDERED: POLYETHYLENE GLYCOL 17 GM PKG PO ONE (22:00)
[2016-03-12] VITALS: BP 101/68; PULSE 95; RESP 18; TEMP 96.3; O2SAT 96
[2016-03-12 04:00] VITALS: BP 104/63; PULSE 85; RESP 20; TEMP 96.3; O2SAT 93
[2016-03-12] MEDS: MAGNESIUM HYDROXIDE SUSP 30 ML CUP PO PRN (04:09)
[2016-03-12 05:23] LABS: BASOPHIL % 0.6 % (0.0-2.0); EOSINOPHIL % 1.2 % (0.0-4.0); HEMATOCRIT 26.8 % (35.0-46.0); HEMO FLAGS DIFF FINAL; LYMPH % 54.1 % (9.0-44.0); LYMPHOCYTE # 1.8 TH/MM3 (1.0-4.8); MEAN CELL VOLUME 105.2 FL (80.0-100.0); MEAN CORPUSCULAR HEMOGLOBIN 35.5 PG (27.0-34.0); MEAN CORPUSCULAR HGB CONC 33.7 % (32.0-36.0); MONO % 15.5 % (0.0-8.0); NEUT % 28.6 % (16.0-70.0); PLATELET COUNT 213 TH/MM3 (150-450); RED BLOOD COUNT 2.55 MIL/MM3 (4.00-5.30); WHITE BLOOD COUNT 3.3 TH/MM3 (4.0-11.0)
[2016-03-12 05:24] LABS: INTERNATIONAL NORMALIZED RATIO 1.9 RATIO; PROTHROMBIN TIME - PATIENT 21.3 SEC (9.8-11.6)
[2016-03-12] MEDS: SUCRALFATE 1 GM/10 ML CUP PO SCH ×4 (05:28→22:07)
[2016-03-12] MEDS: ERYTHROMYCIN EC 250 MG TABEC PO SCH ×3 (05:28→22:07)
[2016-03-12] MEDS: LEVOTHYROXINE SODIUM 50 MCG TAB PO SCH (05:28)
[2016-03-12] MEDS: INSULIN ASPART SUPPLEMENTAL SCALE SQ SCH ×4 (05:35→21:00)
[2016-03-12 05:44] LABS: BICARBONATE 29.1 MEQ/L (21.0-32.0); POTASSIUM 3.5 MEQ/L (3.5-5.1)
[2016-03-12 08:00] VITALS: BP 136/84; PULSE 74; RESP 18; TEMP 96.9; O2SAT 98
[2016-03-12] MEDS: METOPROLOL SUCCINATE 25 MG EXTENDED RELEASE TAB PO SCH (08:25)
[2016-03-12] MEDS: GABAPENTIN 300 MG CAP PO SCH ×2 (08:25→22:07)
[2016-03-12] MEDS: MULTIVITAMINS/MINERALS THERAPEUTIC TAB PO SCH (08:26)
[2016-03-12] MEDS: TOLTERODINE TARTRATE 2 MG CAP LA PO SCH (08:26)
[2016-03-12] MEDS: POTASSIUM CL 40 MEQ/30 ML LIQ UDC PO SCH (08:26)
[2016-03-12] MEDS: SODIUM CHLORIDE 0.9% FLUSH 5 ML FLUSH FLUSH SCH ×2 (08:26→22:08)
[2016-03-12] MEDS: DOCUSATE SODIUM 50 MG/SENNA 8.6 MG TAB PO SCH ×2 (08:26→22:08)
[2016-03-12] MEDS: POLYETHYLENE GLYCOL 17 GM PKG PO SCH (08:26)
[2016-03-12] MEDS: NYSTAT/DIPHENHY/LIDO MOUTHWASH (Adult) 120ML SWISH-SWAL SCH ×4 (08:27→22:10)
[2016-03-12] MEDS: ESTRADIOL 0.1 MG/GM VAG CREAM 42.5 GM VAGINAL SCH ×2 (08:30→22:09)
[2016-03-12] MEDS ORDERED: POLYETHYLENE GLYCOL 17 GM PKG PO SCH (09:00)
--- NOTE | 2016-03-12 11:28 | MB ---
cc: JOSE ALEJANDRO MORALES MD DATE OF CONSULTATION: 03/12/2016 REASON FOR CONSULTATION: Congestive heart failure. HISTORY OF PRESENT ILLNESS: Miss Portillo is a 89 year-old female who does have a history of atrial fibrillation, permanent pacemaker with a Biotronic device, and congestive heart failure. She is status post recent hospitalization for urinary tract infection and congestive heart failure at [facility], Though these records are not available to me, the patient is a poor historian. She denies any current symptoms to me including chest pain or shortness of breath. Review of the records doesn't show also that she has had some dysphagia and is to undergo a esophagogastroduodenoscopy, however, she left against medical advice at [facility] and Cardiology clearance is now requested here. PAST MEDICAL HISTORY: 1. Hypertension. 2. Hyperlipidemia. 3. Diabetes. 4. Atrial fibrillation. 5. Permanent pacemaker that is Biotronic. 6. Arthritis. 7. Hypothyroidism. 8. Gastric carcinoma with subsequent Javan-en-Y. 9. Elevated troponin. 10. Pulmonary embolism. CURRENT MEDICATIONS: Are per the record. SOCIAL HISTORY: The patient is a [facility] resident. FAMILY HISTORY: Noncontributory. REVIEW OF SYSTEMS The patient is felt unreliable for this. She otherwise has no specific complaints. PHYSICAL EXAMINATION: VITAL SIGNS: Temperature 96.3, 85, 20, 104/63. IN GENERAL: She is a well appearing elderly female who is in no apparent distress. NECK: Her neck is free from jugular venous distention. LUNGS: The lungs are bilaterally clear to auscultation. CARDIOVASCULAR SYSTEM: She has a normal S1, S2, there is a 2/6 systolic murmur, no rubs or gallops were appreciated. ABDOMEN: The abdomen is soft. EXTREMITIES: The extremities have 1+ edema. RADIOLOGIC: Telemetry strips - show a long run of wide complex tachycardia, potentially consistent with VT versus atrial fibrillation with aberrancy. Echocardiogram from 03/11/2016, shows an ejection fraction of 40-45%. There was moderate mitral and tricuspid regurgitation. Nuclear stress test from April 2014; was essentially normal. IMPRESSIONS: Congestive heart failure - the patient does have a recurrent episode of heart failure with mild renal insufficiency, given her creatinine of 1.35. This does appear to be an acute on chronic systolic and diastolic dysfunction. I do agree with continuing her on the beta-tejal. Diuretics can be given as tolerated given her relative hypotension. At this point her blood pressure is too low for consideration of PIO inhibitor. Elevated troponin, the patients troponin appears flatly elevated at 0.08/0.08/0.09, this does appear to be chronic and likely secondary to her heart failure. Evaluation for esophagogastroduodenoscopy - the patient once compensated would be reasonable to undergo esophagogastroduodenoscopy given her recent normal nuclear stress test. The patient will be at least at Moderate risk given her wide complex tachycardia. Code status - the patient has indicated to me that she does not want any invasive cardiology procedures which is reasonable. Consideration should be given towards do not resuscitate. Jose Alejandro Morales M.D. ROGELIO/sofie /8:33 AM /11:11 AM
[2016-03-12 11:38] VITALS: BP 108/60; PULSE 76; RESP 19; TEMP 96.9; O2SAT 95
[2016-03-12] MEDS ORDERED: POTASSIUM CHLORIDE 10 MEQ CONTROLLED RELEASE TAB PO ONE (13:15)
--- NOTE | 2016-03-12 14:11 | PD.CONS ---
Provisional Diagnosis Admission Date Mar 09, 2016 at 16:25 [place] I. Mild to moderate neurocognitive disorder, unspecified [place] II. Deferred History of Present Illness Service Psychiatry Consult Requested By Primary Care Physician Leonor Ulloa MD HPI The patient is a 89-year-old woman, domiciled in a [place], , without any previous psychiatric history, no previous hospitalizations, no previous suicide attempts, with extensive past medical history of HTN, hypothyroidism, HLD, DM, A. fib, GERD, PE, hypothyroidism, CHF, h/o gastric CA who presented to the ER with abdominal pain. Admitted in the hospital due to elevated troponins, MINE. Consulted to psychiatry due to depressive symptoms and memory problems. Chart was reviewed, case discussed with primary medical team, collateral information from her son Lebron obtained, patient was evaluated at bedside in her room and the medical floor. On psychiatric evaluation the patient was found calm and cooperative, at the beginning was a little bit resistant asking why does she have to see a psychiatrist if she doesn't have any psychiatric problem. But, with respiration she became more open and receptive. She states that she is in the hospital because she has been feeling not well. She says that she was hospitalized in [facility] "but they do not do a lot of things for me". Patient described her mood as sad "consider so many things going on in my life". She says that her multiple medical problems, that never seems to get better is one of the major sources of her depression, but another situation is that one of her sons was diagnosed with cancer and she knows that he is not doing well. She also reports that she feels alone, at times abandoned by family. For this reasons, patient says that sometimes she prefers to be , even though for her jehovah's witness beliefs for the love of her sons she will never will commit suicide. Patient describes her depression as continuous sadness, hopelessness, helplessness, very low energy, generalized pessimism, low self-esteem, frequent thoughts. She denies homicidal ideation, perceptual disturbances, anxiety, past or current bibiana. Another situation is that she knows in the last year her memory has been less reliable. She can still function alone, due to most of her stuff, be aware of what is going on with the family and in her surrounding, but some times is difficult for her to retain names an situations. In cognitive evaluation, [facility] patient scored 23/30, she is fully oriented 3, bit visible impairment in recent, immediate and working memory, executive function, but conserved language, abstract thought, repetition. Patient denies use of alcohol and illicit drugs. Review of Systems Constitutional: COMPLAINS OF: Fatigue, Change in appetite, DENIES: Diaphoretic episodes, Fever, Weight gain, Weight loss, Chills, Dizziness, Night Sweats Endocrine: DENIES: Abnorml menstrual pattern, Heat/cold intolerance, Polydipsia , Polyuria, Polyphagia Eyes: DENIES: Blurred vision, Diplopia, Eye inflammation, Eye pain, Vision loss , Photosensitivity, Double Vision Respiratory: DENIES: Apneas, Cough, Snoring, Wheezing, Hemoptysis, Sputum production, Shortness of breath Cardiovascular: DENIES: Chest pain, Palpitations, Syncope, Dyspnea on Exertion , PND, Lower Extremity Edema, Orthopnea, Claudication Gastrointestinal: COMPLAINS OF: Abdominal pain Genitourinary: COMPLAINS OF: Urinary frequency Musculoskeletal: DENIES: Joint pain, Muscle aches, Stiffness, Joint Swelling, Back pain, Neck pain Immunologic/allergic: DENIES: Eczema, Urticaria Neurologic: COMPLAINS OF: Paresthesias, DENIES: Abnormal gait, Headache, Localized weakness, Seizures, Speech Problems, Tremor, Poor Balance Psychiatric: COMPLAINS OF: Confusion, Mood changes, Depression Past Family Social History Coded Allergies: Aspirin (Verified Allergy, Severe, 11/22/14) MILD REACTION; EXCESSIVE SALIVA Celebrex (Verified Allergy, Severe, RASH, 11/22/14) MILD REACTION-RASH Sulfa (Verified Allergy, Severe, Rash, 11/22/14) PT STATES SHE IS NOT ALLERGIC TO THIS MED Active Scripts Estradiol Vaginal (Estrace Vaginal)0.01% Cream1 Appl VAGINAL BID #1 TUBE Ref 2 Apply twice a day x 2 week. Then 3 times / week thereafter. Prov:King Lujan MD 03/10/16 Reported Medications Simvastatin 20 Mg Tab20 Mg PO HS #30 TAB Ref 0 03/09/16 Polyethylene Glycol 3350 Powder (Miralax Powder)17 Gm Powd17 Gm PO DAILY #1 BOTTLE Ref 0 Mix and dissolve one measuring cap-ful (17 grams) in water or juice. 03/09/16 [place]-3 Fatty Acids (Fish Oil 1200 mg)1 Cap Cap1,200 Mg PO BID 03/09/16 Multiple Vitamins W/ Minerals (Theragran-M)1 Tab1 Tab PO DAILY Ref 0 03/09/16 Metoprolol Succinate ER 24 HR (Toprol XL)25 Mg Tab25 Mg PO DAILY #30 TAB Ref 0 03/09/16 Metformin 500 Mg [id number] Mg PO BID #60 TAB Ref 0 With meals 03/09/16 Gabapentin 300 Mg Cug036 Mg PO BID #60 CAP Ref 0 03/09/16 Vitamin E (Alph-E)400 Unit Uuk173 Units PO BID 03/09/16 Potassium 99 Mg Tab99 Mg PO DAILY 03/09/16 Levothyroxine (Synthroid)50 Mcg Tab50 Mcg PO DAILY #30 TAB Ref 0 03/09/16 Cholecalciferol (Vitamin D3)1,000 Unit Tab1,000 Units PO DAILY #1 BOTTLE Ref 0 03/09/16 Warfarin (Coumadin)5 Mg Tab5 Mg PO DAILY@1600 #30 TAB Ref 0 03/09/16 Solifenacin (Vesicare)5 Mg Tab5 Mg PO DAILY #30 TAB Ref 0 03/09/16 Tramadol 50 Mg Tab50 Mg PO Q8H Ref 0 03/09/16 Furosemide (Lasix)40 Mg Tab40 Mg PO DAILY #30 TAB Ref 0 03/09/16 Hydrochlorothiazide 25 Mg Tab25 Mg PO DAILY #30 TAB Ref 0 03/09/[address] ([place] Luis-Tab DR)250 Mg [id number] Mg PO Q8HR Ref 0 03/09/16 Current Medications Medications (Trade) Dose Ordered Sig/Armin Route Start Time Stop Time Status Last Admin (NS Flush) 2 ml UNSCH PRN FLUSH 03/09/16 16:30 (NS Flush) 2 ml BID FLUSH 03/09/16 21:00 03/11/16 21:49 (Tylenol) 650 mg Q4H PRN PO 03/09/16 16:30 (Zofran Inj) 4 mg Q6H PRN IVP 03/09/16 16:30 03/09/16 20:29 (Compazine Supp) 25 mg Q12H PRN NC 03/09/16 16:30 (Dulcolax Supp) 10 mg DAILY PRN NC 03/09/16 16:30 (Milk Of Magnesia Liq) 30 ml Q12H PRN PO 03/09/16 16:30 03/12/16 04:09 (Senokot) 17.2 mg Q12H PRN PO 03/09/16 16:30 (Restoril) 15 mg HS PRN PO 03/09/16 16:30 (Erythromycin Ec) 250 mg Q8HR PO 03/09/16 22:00 03/12/16 05:28 (Neurontin) 300 mg BID PO 03/09/16 21:00 03/12/16 08:25 (Synthroid) 50 mcg DAILY@06 PO 03/10/16 06:00 03/12/16 05:28 (Toprol Xl) 25 mg DAILY PO 03/10/16 09:00 03/12/16 08:25 (Theragran M Tab) 1 tab DAILY PO 03/10/16 09:00 03/12/16 08:26 (Miralax) 17 gm DAILY PO 03/10/16 09:00 03/12/16 08:26 (Coumadin) 5 mg DAILY@1600 PO 03/09/16 17:38 03/11/16 16:35 (KCl 40 Meq/30 ml Liq) 2.53 meq DAILY PO 03/10/16 09:00 03/12/16 08:26 (Pravachol) 40 mg HS PO 03/09/16 21:00 03/11/16 21:40 (Detrol La) 2 mg DAILY PO 03/10/16 09:00 03/12/16 08:26 (D50w (Vial) Inj) 25 ml UNSCH PRN IV PUSH 03/09/16 16:30 (Glucagon Inj) 1 mg UNSCH PRN OTHER 03/09/16 16:30 (Teagan-Colace) 2 tab BID PO 03/09/16 21:00 03/12/16 08:26 (Teagan-Colace) 2 tab BID PRN PO 03/09/16 17:30 Tramadol HCl 50 mg 50 mg Q8H PRN PO 03/09/16 18:00 03/11/16 00:44 (Coumadin Consult Pharmacy) 0 ml @ 0 mls/hr UNSCH OTHER 03/09/16 17:30 (Estrace 0.01% Vag Cream) 1 appl BID VAGINAL 03/10/16 21:00 03/12/16 08:30 (Magic Mouthwash Adult Liq) 5 ml QID SWISH-SWAL 03/11/16 18:00 03/12/16 08:27 (Carafate Liq) 1 gm ACHS PO 03/11/16 21:00 03/12/16 05:28 (Fleets Enema (Adult)) 133 ml UNSCH PRN NC 03/11/16 22:00 Physical Exam Vital Signs Vital Signs Date Time Temp Pulse Resp B/P Pulse Ox O2 Delivery O2 Flow Rate FiO2 03/12/16 11:38 96.9 76 19 108/60 95 03/11/16 21:30 21 03/09/16 16:26 Nasal Cannula 2.00 I/O 03/11/16 03/11/16 03/11/16 07:59 15:59 23:59 Intake Total 696 ml 765 ml 240 ml Balance 696 ml 765 ml 240 ml Mental Status Examination Appearance woman, age appearing, good hygiene, [facility], she is calm and cooperative Speech: Slow, Incoherent Memory: Impaired (describe) Thought Process: Circumstantial Hallucination Type: None Attention and Concentration: Good Suicidal Ideation: No Previous Suicide Attempts: No Homicidal Ideation: No Previous Homicide Attempts: No Insight: Fair Judgement: WNL Affect: Sad Mood: Sad Motor Activity: Normal gait Assessment & Plan Problem List: (1) Adjustment disorder with depressed mood Assessment & Plan: Patient endorses symptomatology of depression consistent in frequent sadness, sense of abandonment,loneliness, hopelessness, helplessness, frequent thoughts. Patient denies suicidal and homicidal ideation. Depressive symptoms are mostly related with acute medical problems and cancer of one her sons. Patient would benefit of an antidepressant, citalopram 10 mg for example, but she prefers to discuss with her family and primary medical team before starting to take his medication. ICD Code: F43.21 (2) Moderate major neurocognitive disorder due to multiple etiologies without behavioral disturbance Assessment & Plan: MMS is 23. Patient presents cognitive deficits that are consistent with [id number] major neurocognitive disorder of unknown etiology. Full medical workup for dementia should be done, including brain MRI , and more specific neurocognitive test in order to diagnose the specific type of dementia. She would benefit of Aricept 5 mg Namenda 5 mg to prolong cognitive decline. We'll follow-up. ICD Code: F03.90 Assessment & Plan Estimated LOS: days Santana Hand MD Mar 12, 2016 14:10
--- NOTE | 2016-03-12 14:18 | EKG ---
Date Performed: 03/11/2016 Time Performed: 14:32:15 PTAGE: 89 years EKG: DEMAND VENTRICULAR PACING PROBABLE UNDERLYING ATRIAL FIBRILLATION ABNORMAL RHYTHM ECG PREVIOUS TRACING : 03/09/2016 14.52 DOCTOR: Ariel Mckeon Interpretating Date/Time 03/12/2016 14:17:25
--- NOTE | 2016-03-12 15:22 | HHI.GIFU ---
Subjective Remarks patient is resting in bed, cont. to have dysphagia, no nausea, vomiting or abd pain. Son by bed side (Kevin Gardner) Objective Vitals I&O Vital Signs Date Time Temp Pulse Resp B/P Pulse Ox O2 Delivery O2 Flow Rate FiO2 03/12/16 11:38 96.9 76 19 108/60 95 03/12/16 08:00 96.9 74 18 136/84 98 03/12/16 04:00 96.3 85 20 104/63 93 03/12/16 00:00 96.3 95 18 101/68 96 03/11/16 21:30 98 21 03/11/16 20:00 97.7 79 16 121/75 97 03/11/16 16:00 96.0 80 16 127/74 99 I/O 03/11/16 03/11/16 03/11/16 03/12/16 03/12/16 03/12/16 07:00 15:00 23:00 07:00 15:00 23:00 Intake Total 696 ml 765 ml 240 ml 842 ml 590 ml Output Total 600 ml Balance 696 ml 765 ml 240 ml 842 ml -10 ml Intake Oral 240 ml 270 ml 240 ml 120 ml 590 ml IV Total 456 ml 495 ml 722 ml Output Urine Total 600 ml # Voids 3 2 2 1 # Bowel Movements 0 0 0 1 5 Laboratory Laboratory Tests Test 03/11/16 03/12/16 03/12/16 18:09 00:16 04:30 Troponin I 0.08 0.08 0.09 White Blood Count 3.3 Red Blood Count 2.55 Hemoglobin 9.0 Hematocrit 26.8 Mean Corpuscular Volume 105.2 Mean Corpuscular Hemoglobin 35.5 Mean Corpuscular Hemoglobin 33.7 Concent Red Cell Distribution Width 16.0 Platelet Count 213 Mean Platelet Volume 9.8 Neutrophils (%) (Auto) 28.6 Lymphocytes (%) (Auto) 54.1 Monocytes (%) (Auto) 15.5 Eosinophils (%) (Auto) 1.2 Basophils (%) (Auto) 0.6 Neutrophils # (Auto) 1.0 Lymphocytes # (Auto) 1.8 Monocytes # (Auto) 0.5 Eosinophils # (Auto) 0.0 Basophils # (Auto) 0.0 CBC Comment DIFF FINAL Differential Comment Prothrombin Time 21.3 Prothromb Time International 1.9 Ratio Sodium Level 140 Potassium Level 3.5 Chloride Level 102 Carbon Dioxide Level 29.1 Anion Gap 9 Blood Urea Nitrogen 30 Creatinine 1.35 Estimat Glomerular Filtration 37 Rate Random Glucose 94 Calcium Level 8.0 Imaging Last Impressions Chest X-Ray 03/09/161413 Signed Impressions: Service Date/Time: Wednesday, March 09, 2016 14:40 - CONCLUSION: 1. Small left pleural effusion. 2. Cardiomegaly. 3. Degenerative changes and scoliosis of the thoracolumbar spine. Ervin Lilly MD Abdomen/Pelvis CT 03/09/161413 Signed Impressions: Service Date/Time: Wednesday, March 09, 2016 15:26 - CONCLUSION: 1. Chronic moderate to severe hydronephrosis bilaterally of indeterminate etiology. 2. Mild diffuse urinary bladder wall thickening. 3. Uncomplicated sigmoid diverticulosis. 4. Minimal prominence of the extrahepatic and central intrahepatic biliary system. Correlation with alkaline phosphatase and bilirubin levels is suggested to rule out biliary obstruction. 5. Small to moderate sized left pleural effusion and tiny right pleural effusion. 4. Cardiomegaly. 5. Atelectasis within the lingula of the left upper lobe. 6. Degenerative changes and scoliosis of the thoracolumbar spine. Ervin Lilly MD Physical Exam HEENT: Pupils round and reactive to light; normocephalic; atraumatic; no jaundice. Throat is clear. NECK: Neck is supple, no JVD, no lymphadenopathy. CHEST: Chest is clear to auscultation and percussion. CARDIAC: Regular rate and rhythm with no murmur gallop or rubs. ABDOMEN: Soft, nondistended, nontender; no hepatosplenomegaly; bowel sounds are present in all four quadrants. EXTREMITIES: No clubbing, dressing to lower left leg. SKIN: Normal; no rash; no jaundice. STRAND [employer]CH[employer] F[employer] WIRE: alert and oriented. (Kevin Gardner) Assessment and Plan Plan - Dysphagia on going for a long time- will need EGD/dill, however, need to hold Coumadin 3 days prior - Abd pain- she denies this for me, CT showed urinary blader wall thickening, diverticulosis, prominence of extrahepatics duct, small pleural effusion, cardiomegaly and degenerative changes. LFTs normal - Anemia- hgb stable, no active bleeding - Hypokalemia per attending - ?CHF, A-fib cardiology consulted, - Hydronephrosis, Urology on the case - AKF per attending Plan - MARCIE - EGD/dill will need Coumadin on hold for 3 days, this was discussed with patient, son, and nurse - S/p clearance by cardiology - Monitor hh - Supportive care - Patient seen and examined by Dr. Garibay and myself and this note is written on his behalf. (Kevin Gardner) Physician Comments Seen and examined, plan as above, will follow up with you. (John Garibay MD) Kevin Gardner Mar 12, 2016 15:22 John Garibay MD Mar 12, 2016 20:02
--- NOTE | 2016-03-12 15:58 | RADRPT ---
EXAM DATE/TIME: 03/12/2016 14:41 [facility] COMPARISON: US LEG LEFT VENOUS DOPPLER, February 05, 2016, 20:41. INDICATIONS : Bilateral lower extremity swelling. MEDICAL HISTORY : Hypertension. Deep venous thrombosis. Hypercholesterolemia. Thyroid disease. GERD. SURGICAL HISTORY : Hysterectomy. Bilateral cataract surgery. ENCOUNTER: Subsequent ACUITY: 1 day PAIN SCORE: 4/10 LOCATION: Bilateral legs. TECHNIQUE: Venous ultrasound of the left and right leg was performed from the inguinal ligament to the proximal calf. Real-time, color Doppler and spectral tracing, compression and augmentation techniques were us ed. FINDINGS: RIGHT LEG: There is normal compressibility of the deep venous system from the inguinal region to the proximal ca lf. No echogenic clot is seen in the lumen of the common femoral, femoral, popliteal, and posterior tibial veins. There is a normal response of the venous system to proximal and distal augmentation an d respiration. Note is made of a small septated Doan's cyst in the popliteal fossa. LEFT LEG: There is normal compressibility of the deep venous system from the inguinal region to the proximal ca lf. No echogenic clot is seen in the lumen of the common femoral, femoral, popliteal, and posterior tibial veins. There is a normal response of the venous system to proximal and distal augmentation an d respiration. Note is made of a small Doan's cyst measuring approximately 2.0 x 0.6 CM within the p opliteal fossa. CONCLUSION: 1. No DVT identified within either lower extremity. 2. Small Doan's cyst within the popliteal fossa bilaterally. Cole Mondragon MD on March 12, 2016 at 15:55 Board Certified Radiologist. This report was verified electronically.
[2016-03-12 16:00] VITALS: BP 130/73; PULSE 73; RESP 19; TEMP 96.9; O2SAT 100
[2016-03-12] MEDS: WARFARIN SOD 5 MG TAB PO SCH (16:00)
[2016-03-12 20:00] VITALS: BP 111/71; PULSE 78; RESP 18; TEMP 97.1; O2SAT 97
--- NOTE | 2016-03-12 20:31 | HHI.PR ---
Subjective Remarks Patient was seen lunch time, in the chair, eating lunch without any problems. No cp, sob, n/v/d/c. Says constipation resolved, she did have a large BM yesterday. Objective Vitals Vital Signs Date Time Temp Pulse Resp B/P Pulse Ox O2 Delivery O2 Flow Rate FiO2 03/12/16 16:00 96.9 73 19 130/73 100 03/12/16 11:38 96.9 76 19 108/60 95 03/12/16 08:00 96.9 74 18 136/84 98 03/12/16 04:00 96.3 85 20 104/63 93 03/12/16 00:00 96.3 95 18 101/68 96 03/11/16 21:30 98 21 I/O 03/11/16 03/11/16 03/11/16 03/12/16 03/12/16 03/12/16 07:00 15:00 23:00 07:00 15:00 23:00 Intake Total 696 ml 765 ml 240 ml 842 ml 1130 ml Output Total 600 ml Balance 696 ml 765 ml 240 ml 842 ml 530 ml Intake Oral 240 ml 270 ml 240 ml 120 ml 590 ml IV Total 456 ml 495 ml 722 ml 540 ml Output Urine Total 600 ml # Voids 3 2 2 1 # Bowel Movements 0 0 0 1 5 Result Diagram: 03/12/16 0430 03/12/16 0430 Imaging Last Impressions Lower Extremity Ultrasound 03/12/16 0000 Signed Impressions: Service Date/Time: Saturday, March 12, 2016 14:41 - CONCLUSION: 1. No DVT identified within either lower extremity. 2. Small Doan's cyst within the popliteal fossa bilaterally. Cole Mondragon MD Chest X-Ray 03/09/16 1414 Signed Impressions: Service Date/Time: Wednesday, March 09, 2016 14:40 - CONCLUSION: 1. Small left pleural effusion. 2. Cardiomegaly. 3. Degenerative changes and scoliosis of the thoracolumbar spine. Ervin Lilly MD Abdomen/Pelvis CT 03/09/16 1414 Signed Impressions: Service Date/Time: Wednesday, March 09, 2016 15:26 - CONCLUSION: 1. Chronic moderate to severe hydronephrosis bilaterally of indeterminate etiology. 2. Mild diffuse urinary bladder wall thickening. 3. Uncomplicated sigmoid diverticulosis. 4. Minimal prominence of the extrahepatic and central intrahepatic biliary system. Correlation with alkaline phosphatase and bilirubin levels is suggested to rule out biliary obstruction. 5. Small to moderate sized left pleural effusion and tiny right pleural effusion. 4. Cardiomegaly. 5. Atelectasis within the lingula of the left upper lobe. 6. Degenerative changes and scoliosis of the thoracolumbar spine. Ervin Lilly MD Objective Remarks GENERAL: Well-developed well-nourished. In no acute distress. SKIN: Warm and dry. No lesions noted. HEENT: Normocephalic. Pupils equal and round. Mucous membranes pink and moist. CARDIOVASCULAR: Irregular rate and rhythm. No murmur appreciated. RESPIRATORY: No accessory muscle use. Clear to auscultation. Bibasilar crackles. GASTROINTESTINAL: Abdomen soft, non-tender, nondistended. Bowel sounds x4. MUSCULOSKELETAL: Left lower extremity with a compression dressing, patient states is for DVT. 2+ lower extremity edema. No clubbing or cyanosis. NEUROLOGICAL: Awake and alert. No focal neurological deficits. Moves upper and lower extremities spontaneously. Normal speech. PSYCHIATRIC: Pleasantly confused mood and affect; insight and judgment fair to poor. A/P Assessment and Plan 89-year-old female with past medical history of HTN, HLD, DM, A. fib, GERD, PE, hypothyroidism, CHF, h/o gastric CA who presented with abdominal pain Abdominal pain: Acute on chronic. Complicated intra-abdominal history of gastric cancer multiple abdominal surgeries. Etiology of the pain could be multifactorial. Abdominal CT reviewed, numerous changes that appear to be chronic, unsure if any acute process. Suspect symptoms worsened by constipation , will give cathartics, laxatives, enemas. Had a large BM 12.19. Constipation resolving. GI consult, appreciate recommendations. Patient is on coumadin. GI recommends holding coumadin x3 days ( since 03/12) because she does need EGD/dil. Patient is however refusing any other anticoagulation at this time. Seen by Dr Osorio cardiology patien is at mod risk for procedure. Pt had a recent negative stress test. 2D ECHO shows EF of 40-45 %. Cardiology cleared pt for procedure. Hypokalemia 2/2 poor PO intake. Replace and monitor. Eating better today. No pain. Dysphagia / esophageal strictures/ spasm? Consult GI . Discussed with the patient/family she might need EGD/dilation Chest pain might with tachycardia HR in 175s briefly. She did have a run of vTach. Consult her cardiology doctor Alexx Day. Seen by Dr Osorio cardiology patien is at mod risk for procedure. Pt had a recent negative stress test. 2D ECHO shows EF of 40-45 % Left leg wound present on admission. Change dressing daily: single layer xeroform and dry cover daily.Discussed with wound care nurse. LE edema; will do doppler US bilat. Patient has a h/o LE DVT History of diastolic CHF: Patient appears volume overloaded with pulmonary crackles and lower extremity on exam and left pleural effusion seen on imaging, however patient denies any symptoms. Previous echocardiogram from 2015 reviewed , essentially within normal limits, repeat echocardiogram. Check BNP. Caution with IV hydration. DC IVF as patient can have po. Continue metoprolol. Hydronephrosis: Abdominal CT showed "chronic moderate to severe hydronephrosis bilaterally of undetermined etiology". UA unremarkable. Consult patient's urologist, Dr. Eduardo. Monitor urine output. Has a good UOP. Confusion: Appears still confused. poor judgement. Discussed with family ( 2 sons and daughter) patient's son and noted that she's been confused lately, and is worsening. She also says she is depressed, per family she also is depressed lately. Patient says she is sad an cries, and says has no more tears ...Psychiatry consulted. Hypokalemia: Potassium 2.5 on admission . Replace IV and orally. Check magnesium. Follow-up BMP. Will DC IVF NS. Continue 1/2 NS NaCL with 10 mEq KCl as K still low. Monitor electrolytes closely. Acute kidney injury: Creatinine 1.3, previously 1.04 on 02/05/16. Patient appears volume overloaded on exam, possibly a cardiorenal component. Caution with IVF. Hold home Lasix and HCTZ for now. Follow-up BMP. Change NS IVF to Gentle IV hydration with 1/2 NCL with KCL at 60cc. Monitor kidney function. Will consider nephrology consult. Diabetes mellitus: Hold home metformin. SSI with Accu-Cheks. Chronic anticoagulation: Secondary to atrial fibrillation and history of DVT/ PE. INR subtherapeutic, continue Coumadin and consult pharmacy for dosing. Anemia: macrocytic. Will check B12, folate, iron panel, ferritin normal. Vit D is 23. Other chronic medical conditions include HLD, GERD, hypothyroidism: Stable at this time and will continue home medications as indicated Discussed with the patient, nurse, son at bedside. Cass Wren MD Mar 12, 2016 20:30
[2016-03-12] MEDS: PRAVASTATIN SOD 40 MG TAB PO SCH (22:07)
[2016-03-13] VITALS (7 sets, daily range): BP systolic 103–142; BP diastolic 64–89; PULSE 68–100; RESP 16–20; TEMP 96.3–97; O2SAT 93–100
[2016-03-13 05:53] LABS: HEMATOCRIT 25.7 % (35.0-46.0); MEAN CELL VOLUME 106.2 FL (80.0-100.0); MEAN CORPUSCULAR HEMOGLOBIN 35.3 PG (27.0-34.0); MEAN CORPUSCULAR HGB CONC 33.3 % (32.0-36.0); PLATELET COUNT 203 TH/MM3 (150-450); RED BLOOD COUNT 2.42 MIL/MM3 (4.00-5.30); RED CELL DISTRIBUTION WIDTH 16.4 % (11.6-17.2); WHITE BLOOD COUNT 2.5 TH/MM3 (4.0-11.0)
[2016-03-13 05:57] LABS: HEMO FLAGS AUTO DIFF
[2016-03-13 06:02] LABS: INTERNATIONAL NORMALIZED RATIO 1.8 RATIO; PROTHROMBIN TIME - PATIENT 20.7 SEC (9.8-11.6)
[2016-03-13 06:15] LABS: BICARBONATE 28.9 MEQ/L (21.0-32.0); POTASSIUM 3.7 MEQ/L (3.5-5.1)
[2016-03-13] MEDS: ERYTHROMYCIN EC 250 MG TABEC PO SCH ×3 (06:20→21:47)
[2016-03-13] MEDS: LEVOTHYROXINE SODIUM 50 MCG TAB PO SCH (06:20)
[2016-03-13] MEDS: SUCRALFATE 1 GM/10 ML CUP PO SCH ×4 (06:20→21:46)
[2016-03-13] MEDS: INSULIN ASPART SUPPLEMENTAL SCALE SQ SCH ×4 (06:33→21:46)
--- NOTE | 2016-03-13 07:06 | PD.CARD.PN ---
Subjective Subjective Remarks PT without CV complaints Objective Medications Current Medications Medications (Trade) Dose Ordered Sig/Armin Route Start Time Stop Time Status Last Admin (NS Flush) 2 ml UNSCH PRN FLUSH 03/09/16 16:30 (NS Flush) 2 ml BID FLUSH 03/09/16 21:00 03/12/16 22:08 (Tylenol) 650 mg Q4H PRN PO 03/09/16 16:30 (Zofran Inj) 4 mg Q6H PRN IVP 03/09/16 16:30 03/09/16 20:29 (Compazine Supp) 25 mg Q12H PRN [place] 03/09/16 16:30 (Dulcolax Supp) 10 mg DAILY PRN [place] 03/09/16 16:30 (Milk Of Magnesia Liq) 30 ml Q12H PRN PO 03/09/16 16:30 03/12/16 04:09 (Senokot) 17.2 mg Q12H PRN PO 03/09/16 16:30 (Restoril) 15 mg HS PRN PO 03/09/16 16:30 (Erythromycin Ec) 250 mg Q8HR PO 03/09/16 22:00 03/13/16 06:20 (Neurontin) 300 mg BID PO 03/09/16 21:00 03/12/16 22:07 (Synthroid) 50 mcg DAILY@06 PO 03/10/16 06:00 03/13/16 06:20 (Toprol Xl) 25 mg DAILY PO 03/10/16 09:00 03/12/16 08:25 (Theragran M Tab) 1 tab DAILY PO 03/10/16 09:00 03/12/16 08:26 (Miralax) 17 gm DAILY PO 03/10/16 09:00 03/12/16 08:26 (Coumadin) 5 mg DAILY@1600 PO 03/09/16 17:38 Hold 03/11/16 16:35 (KCl 40 Meq/30 ml Liq) 2.53 meq DAILY PO 03/10/16 09:00 03/12/16 08:26 (Pravachol) 40 mg HS PO 03/09/16 21:00 03/12/16 22:07 (Detrol La) 2 mg DAILY PO 03/10/16 09:00 12/20/16 08:26 (D50w (Vial) Inj) 25 ml UNSCH PRN IV PUSH 03/09/16 16:30 (Glucagon Inj) 1 mg UNSCH PRN OTHER 03/09/16 16:30 (Teagan-Colace) 2 tab BID PO 03/09/16 21:00 03/12/16 22:08 (Teagan-Colace) 2 tab BID PRN PO 03/09/16 17:30 Tramadol HCl 50 mg 50 mg Q8H PRN PO 03/09/16 18:00 03/11/16 00:44 (Coumadin Consult Pharmacy) 0 ml @ 0 mls/hr UNSCH OTHER 03/09/16 17:30 (Estrace 0.01% Vag Cream) 1 appl BID VAGINAL 03/10/16 21:00 03/12/16 22:09 (Magic Mouthwash Adult Liq) 5 ml QID SWISH-SWAL 03/11/16 18:00 03/12/16 22:10 (Carafate Liq) 1 gm ACHS PO 03/11/16 21:00 03/13/16 06:20 (Fleets Enema (Adult)) 133 ml UNSCH PRN WA 03/11/16 22:00 Vital Signs / I&O Vital Signs Date Time Temp Pulse Resp B/P Pulse Ox O2 Delivery O2 Flow Rate FiO2 03/13/16 04:00 96.6 84 16 113/79 98 03/13/16 00:00 96.6 97 16 142/89 93 03/12/16 20:00 97.1 78 18 111/71 97 03/12/16 16:00 96.9 73 19 130/73 100 03/12/16 11:38 96.9 76 19 108/60 95 03/12/16 08:00 96.9 74 18 136/84 98 I/O 03/12/16 03/12/16 03/12/16 03/13/16 03/13/16 03/13/16 06:59 14:59 22:59 06:59 14:59 22:59 Intake Total 1082 ml 1130 ml 660 ml Output Total 600 ml Balance 1082 ml 530 ml 660 ml Intake Oral 360 ml 590 ml 660 ml IV Total 722 ml 540 ml Output Urine Total 600 ml # Voids 3 5 # Bowel Movements 1 5 3 Physical Exam GENERAL: Well developed, well nourished. No acute distress. HEENT: Jugular venous pressure is normal. CHEST: Lungs clear to auscultation bilaterally. Unlabored respiratory effort. CARDIAC: Regular rate and rhythm without S3, S4, or murmur. ABDOMEN: Soft, nontender, no hepatosplenomegaly. Bowel sounds present. EXTREMITIES: No clubbing, cyanosis, or edema. Laboratory Laboratory Tests Test 03/13/16 04:51 White Blood Count 2.5 TH/MM3 Red Blood Count 2.42 MIL/MM3 Hemoglobin 8.5 GM/DL Hematocrit 25.7 % Mean Corpuscular Volume 106.2 FL Mean Corpuscular Hemoglobin 35.3 PG Mean Corpuscular Hemoglobin 33.3 % Concent Red Cell Distribution Width 16.4 % Platelet Count 203 TH/MM3 Mean Platelet Volume 9.8 FL Neutrophils (%) (Auto) % Lymphocytes (%) (Auto) % Monocytes (%) (Auto) % Eosinophils (%) (Auto) % Basophils (%) (Auto) % Neutrophils # (Auto) TH/MM3 Lymphocytes # (Auto) TH/MM3 Monocytes # (Auto) TH/MM3 Eosinophils # (Auto) TH/MM3 Basophils # (Auto) TH/MM3 CBC Comment AUTO DIFF Prothrombin Time 20.7 SEC Prothromb Time International 1.8 RATIO Ratio Sodium Level 143 MEQ/L Potassium Level 3.7 MEQ/L Chloride Level 105 MEQ/L Carbon Dioxide Level 28.9 MEQ/L Anion Gap 9 MEQ/L Blood Urea Nitrogen 32 MG/DL Creatinine 1.32 MG/DL Estimat Glomerular Filtration 38 ML/MIN Rate Random Glucose 122 MG/DL Calcium Level 7.9 MG/DL Assessment and Plan Assessment and Plan Congestive heart failure - appears to be at baseline today Elevated troponin, chronic and likely secondary to her heart failure. AF- coumadin on hold for EGD, no lovenox given the anemia WCT- no further episodes Evaluation for esophagogastroduodenoscopy - the patient once compensated would be reasonable to undergo esophagogastroduodenoscopy given her recent normal nuclear stress test. The patient will be at least at Moderate risk given her wide complex tachycardia. SVT- on tele I will have biotronic PPM check to see if SVT vs AF vs PMT Code status - the patient has indicated to me that she does not want any invasive cardiology procedures which is reasonable. Consideration should be given towards do not resuscitate. Chantel Osorio MD Mar 13, 2016 07:06
[2016-03-13 07:21] LABS: BANDS 14 % (0-6); BASOPHILS 1 % (0-2); EOSINOPHILS 1 % (0-4); METAMYELOCYTES 1 % (0-1); NEUTROPHIL # MANUAL DIFF 1.1 TH/MM3 (1.8-7.7); POLYS (SEG NEUTROPHILS) 27 % (16-70); WBC DIFF SAMPLE 100
[2016-03-13 07:22] LABS: KERATOCYTES OCC (NORMAL); OVALOCYTES 1+ (NORMAL); PLATELET ESTIMATE SMEAR NORMAL (NORMAL); PLATELET MORPHOLOGY NORMAL (NORMAL); SCAN/DIFF FINAL DIFF MANUAL
[2016-03-13] MEDS: MULTIVITAMINS/MINERALS THERAPEUTIC TAB PO SCH (08:59)
[2016-03-13] MEDS: METOPROLOL SUCCINATE 25 MG EXTENDED RELEASE TAB PO SCH (08:59)
[2016-03-13] MEDS: DOCUSATE SODIUM 50 MG/SENNA 8.6 MG TAB PO SCH ×2 (08:59→21:00)
[2016-03-13] MEDS: GABAPENTIN 300 MG CAP PO SCH ×2 (08:59→21:47)
[2016-03-13] MEDS: NYSTAT/DIPHENHY/LIDO MOUTHWASH (Adult) 120ML SWISH-SWAL SCH ×4 (08:59→21:00)
[2016-03-13] MEDS: POTASSIUM CL 40 MEQ/30 ML LIQ UDC PO SCH (08:59)
[2016-03-13] MEDS: TOLTERODINE TARTRATE 2 MG CAP LA PO SCH (08:59)
[2016-03-13] MEDS: SODIUM CHLORIDE 0.9% FLUSH 5 ML FLUSH FLUSH SCH ×2 (09:00→21:46)
[2016-03-13] MEDS: POLYETHYLENE GLYCOL 17 GM PKG PO SCH (09:00)
[2016-03-13] MEDS: ESTRADIOL 0.1 MG/GM VAG CREAM 42.5 GM VAGINAL SCH ×2 (09:00→21:48)
[2016-03-13] MEDS: MAGNESIUM HYDROXIDE SUSP 30 ML CUP PO PRN (10:21)
--- NOTE | 2016-03-13 10:27 | HHI.PYPN ---
Subjective Remarks Patient seen for evaluation today, she was found comfortably eating her breakfast, pleasant, very calm and cooperative, patient says that she feels much better. She described her mood as "quite good", denies depressive symptoms at this moment. Patient denies suicidal or homicidal ideation. She denies visual and auditory hallucinations. Patient is fully oriented 3. No signs of delirium or confusion observed at this moment. Discussed with patient the benefits of psychotropics to improve her mood and help her admission, but she says that she will think about it and will discussed with primary doctor. Review of Systems Other No significant changes since 03/12/2006 Objective Alert: Yes Romeo: Person, Place, Date, Situation Mood: Calm Affect: Euthymic Memory Intact: Immediate, Recent, Remote Hallucinations: Other (not illicit) Delusions: No Delusion Type: Other (none) Suicidal: Ideation (she denies) Homicidal: Ideation (she denies) Insight/Judgement Good Labs Test 03/13/16 04:51 White Blood Count 2.5 TH/MM3 Red Blood Count 2.42 MIL/MM3 Hemoglobin 8.5 GM/DL Hematocrit 25.7 % Mean Corpuscular Volume 106.2 FL Mean Corpuscular Hemoglobin 35.3 PG Mean Corpuscular Hemoglobin 33.3 % Concent Red Cell Distribution Width 16.4 % Platelet Count 203 TH/MM3 Mean Platelet Volume 9.8 FL Neutrophils (%) (Auto) % Lymphocytes (%) (Auto) % Monocytes (%) (Auto) % Eosinophils (%) (Auto) % Basophils (%) (Auto) % Neutrophils # (Auto) TH/MM3 Lymphocytes # (Auto) TH/MM3 Monocytes # (Auto) TH/MM3 Eosinophils # (Auto) TH/MM3 Basophils # (Auto) TH/MM3 CBC Comment AUTO DIFF Differential Total Cells 100 Counted Neutrophils % (Manual) 27 % Band Neutrophils % 14 % Lymphocytes % 49 % Monocytes % 7 % Eosinophils % 1 % Basophils % 1 % Neutrophils # (Manual) 1.1 TH/MM3 Metamyelocytes 1 % Differential Comment FINAL DIFF MANUAL Platelet Estimate NORMAL Platelet Morphology Comment NORMAL Ovalocytes 1+ Keratocytes OCC Prothrombin Time 20.7 SEC Prothromb Time International 1.8 RATIO Ratio Sodium Level 143 MEQ/L Potassium Level 3.7 MEQ/L Chloride Level 105 MEQ/L Carbon Dioxide Level 28.9 MEQ/L Anion Gap 9 MEQ/L Blood Urea Nitrogen 32 MG/DL Creatinine 1.32 MG/DL Estimat Glomerular Filtration 38 ML/MIN Rate Random Glucose 122 MG/DL Calcium Level 7.9 MG/DL Vitals/IOs Vital Signs Date Time Temp Pulse Resp B/P Pulse Ox O2 Delivery O2 Flow Rate FiO2 03/13/16 08:00 96.3 76 18 120/79 100 03/11/16 21:30 21 03/09/16 16:26 Nasal Cannula 2.00 Intake and Output 03/12/16 03/12/16 03/13/16 08:00 16:00 00:00 Intake Total 962 ml 1010 ml 240 ml Output Total 600 ml Balance 962 ml 410 ml 240 ml Assessment & Plan Problem List: (1) Adjustment disorder with depressed mood Assessment & Plan: On reevaluation today patient does not present any significant, acute, concerning depressive symptoms, anxiety, bibiana, perceptual disturbances or gross cognitive impairment requiring immediate psychiatric intervention or hospitalization. Based on brief cognitive test yesterday patient does show mild to moderate neurocognitive dysfunction she might benefit of psychotropics was slow cognitive decline, such as Aricept 5 mg and Namenda 5 mg, but patient prefers to discuss this possibility with primary care doctor before starting taken this kind of medications. ICD Code: F43.21 (2) Moderate major neurocognitive disorder due to multiple etiologies without behavioral disturbance ICD Code: F03.90 Assessment & Plan Estimated LOS: days Justification for Cont. Inpt. No psychiatric admission indicated Santana Hand MD Mar 13, 2016 10:27
--- NOTE | 2016-03-13 11:26 | HHI.PR ---
Subjective Remarks INR of 1.8 . Also needs PM checked before EGD. Patient feels improved today. No cp, sob, n/v/d/c. Denies fevers or chills. Objective Vitals Vital Signs Date Time Temp Pulse Resp B/P Pulse Ox O2 Delivery O2 Flow Rate FiO2 03/13/16 08:00 96.3 76 18 120/79 100 03/13/16 04:00 96.6 84 16 113/79 98 03/13/16 00:00 96.6 97 16 142/89 93 03/12/16 20:00 97.1 78 18 111/71 97 03/12/16 16:00 96.9 73 19 130/73 100 03/12/16 11:38 96.9 76 19 108/60 95 I/O 03/12/16 03/12/16 03/12/16 03/13/16 03/13/16 03/13/16 06:59 14:59 22:59 06:59 14:59 22:59 Intake Total 1082 ml 1130 ml 660 ml Output Total 600 ml Balance 1082 ml 530 ml 660 ml Intake Oral 360 ml 590 ml 660 ml IV Total 722 ml 540 ml Output Urine Total 600 ml # Voids 3 5 # Bowel Movements 1 5 3 Result Diagram: 03/13/16 04503/13/16 0451 Objective Remarks GENERAL: Well-developed well-nourished. In no acute distress. SKIN: Warm and dry. No lesions noted. HEENT: Normocephalic. Pupils equal and round. Mucous membranes pink and moist. CARDIOVASCULAR: Irregular rate and rhythm. No murmur appreciated. RESPIRATORY: No accessory muscle use. Clear to auscultation. Bibasilar crackles. GASTROINTESTINAL: Abdomen soft, non-tender, nondistended. Bowel sounds x4. MUSCULOSKELETAL: Left lower extremity with a compression dressing, patient states is for DVT. 2+ lower extremity edema. No clubbing or cyanosis. NEUROLOGICAL: Awake and alert. No focal neurological deficits. Moves upper and lower extremities spontaneously. Normal speech. PSYCHIATRIC: Pleasantly confused mood and affect; insight and judgment fair to poor. A/P Assessment and Plan 89-year-old female with past medical history of HTN, HLD, DM, A. fib, GERD, PE, hypothyroidism, CHF, h/o gastric CA who presented with abdominal pain Abdominal pain: Acute on chronic. Complicated intra-abdominal history of gastric cancer multiple abdominal surgeries. Etiology of the pain could be multifactorial. Abdominal CT reviewed, numerous changes that appear to be chronic, unsure if any acute process. Suspect symptoms worsened by constipation , will give cathartics, laxatives, enemas. Had a large BM 12.19. Constipation resolving. GI consult, appreciate recommendations. Patient is on coumadin. GI recommends holding coumadin x3 days ( since 03/12) because she does need EGD/dil. Patient is however refusing any other anticoagulation at this time. Seen by Dr Osorio cardiology patien is at mod risk for procedure. Pt had a recent negative stress test. 2D ECHO shows EF of 40-45 %. Cardiology cleared pt for procedure. Hypokalemia 2/2 poor PO intake. Replace and monitor. Eating better today. No pain. Dysphagia / esophageal strictures/ spasm? Consult GI . Discussed with the patient/family she might need EGD/dilation Chest pain might with tachycardia HR in 175s briefly. She did have a run of vTach. Consult her cardiology doctor Alexx Day. Seen by Dr Osorio cardiology patien is at mod risk for procedure. Pt had a recent negative stress test. 2D ECHO shows EF of 40-45 % Left leg wound present on admission. Change dressing daily: single layer xeroform and dry cover daily.Discussed with wound care nurse. LE edema; will do doppler US bilat. Patient has a h/o LE DVT History of diastolic CHF: Patient appears volume overloaded with pulmonary crackles and lower extremity on exam and left pleural effusion seen on imaging, however patient denies any symptoms. Previous echocardiogram from 2015 reviewed , essentially within normal limits, repeat echocardiogram. Check BNP. Caution with IV hydration. DC IVF as patient can have po. Continue metoprolol. Hydronephrosis: Abdominal CT showed "chronic moderate to severe hydronephrosis bilaterally of undetermined etiology". UA unremarkable. Consult patient's urologist, Dr. Eduardo. Monitor urine output. Has a good UOP. Confusion: Appears still confused. poor judgement. Discussed with family ( 2 sons and daughter) patient's son and noted that she's been confused lately, and is worsening. She also says she is depressed, per family she also is depressed lately. Patient says she is sad an cries, and says has no more tears ...Psychiatry consulted. Hypokalemia: Potassium 2.5 on admission . Replace IV and orally. Check magnesium. Follow-up BMP. Will DC IVF NS. Continue 1/2 NS NaCL with 10 mEq KCl as K still low. Monitor electrolytes closely. Acute kidney injury: Creatinine 1.3, previously 1.04 on 02/05/16. Patient appears volume overloaded on exam, possibly a cardiorenal component. Caution with IVF. Hold home Lasix and HCTZ for now. Follow-up BMP. Change NS IVF to Gentle IV hydration with 1/2 NCL with KCL at 60cc. Monitor kidney function. Will consider nephrology consult. Diabetes mellitus: Hold home metformin. SSI with Accu-Cheks. Chronic anticoagulation: Secondary to atrial fibrillation and history of DVT/ PE. INR subtherapeutic, continue Coumadin and consult pharmacy for dosing. Anemia: macrocytic. Will check B12, folate, iron panel, ferritin normal. Vit D is 23. Other chronic medical conditions include HLD, GERD, hypothyroidism: Stable at this time and will continue home medications as indicated Discussed with the patient, nurse, son at bedside. Cass Wren MD Mar 13, 2016 11:26
--- NOTE | 2016-03-13 17:00 | HHI.GIFU ---
Subjective Remarks Patient is sitting up in chair, accompanied by family, dysphagia improved, still has epigastric pain, states her previous GI dr. tried different tx without relief. She reports black stools for a while now. No nausea, no vomiting or hematemesis. (Kevin Gardner) Objective Vitals I&O Vital Signs Date Time Temp Pulse Resp B/P Pulse Ox O2 Delivery O2 Flow Rate FiO2 03/13/16 12:00 97.0 76 18 124/76 99 03/13/16 08:00 96.3 76 18 120/79 100 03/13/16 04:00 96.6 84 16 113/79 98 03/13/16 00:00 96.6 97 16 142/89 93 03/12/16 20:00 97.1 78 18 111/71 97 I/O 03/12/16 03/12/16 03/12/16 03/13/16 03/13/16 03/13/16 07:00 15:00 23:00 07:00 15:00 23:00 Intake Total 842 ml 1130 ml 240 ml 420 ml Output Total 600 ml Balance 842 ml 530 ml 240 ml 420 ml Intake Oral 120 ml 590 ml 240 ml 420 ml IV Total 722 ml 540 ml Output Urine Total 600 ml # Voids 1 2 3 # Bowel Movements 1 5 2 1 Laboratory Laboratory Tests Test 03/13/16 04:51 White Blood Count 2.5 Red Blood Count 2.42 Hemoglobin 8.5 Hematocrit 25.7 Mean Corpuscular Volume 106.2 Mean Corpuscular Hemoglobin 35.3 Mean Corpuscular Hemoglobin 33.3 Concent Red Cell Distribution Width 16.4 Platelet Count 203 Mean Platelet Volume 9.8 Neutrophils (%) (Auto) Lymphocytes (%) (Auto) Monocytes (%) (Auto) Eosinophils (%) (Auto) Basophils (%) (Auto) Neutrophils # (Auto) Lymphocytes # (Auto) Monocytes # (Auto) Eosinophils # (Auto) Basophils # (Auto) CBC Comment AUTO DIFF Differential Total Cells 100 Counted Neutrophils % (Manual) 27 Band Neutrophils % 14 Lymphocytes % 49 Monocytes % 7 Eosinophils % 1 Basophils % 1 Neutrophils # (Manual) 1.1 Metamyelocytes 1 Differential Comment FINAL DIFF MANUAL Platelet Estimate NORMAL Platelet Morphology Comment NORMAL Ovalocytes 1+ Keratocytes OCC Prothrombin Time 20.7 Prothromb Time International 1.8 Ratio Sodium Level 143 Potassium Level 3.7 Chloride Level 105 Carbon Dioxide Level 28.9 Anion Gap 9 Blood Urea Nitrogen 32 Creatinine 1.32 Estimat Glomerular Filtration 38 Rate Random Glucose 122 Calcium Level 7.9 Imaging Last Impressions Lower Extremity Ultrasound 03/12/16 0000 Signed Impressions: Service Date/Time: Saturday, March 12, 2016 14:41 - CONCLUSION: 1. No DVT identified within either lower extremity. 2. Small Doan's cyst within the popliteal fossa bilaterally. Cole Mondragon MD Chest X-Ray 03/09/164 Signed Impressions: Service Date/Time: Wednesday, March 09, 2016 14:40 - CONCLUSION: 1. Small left pleural effusion. 2. Cardiomegaly. 3. Degenerative changes and scoliosis of the thoracolumbar spine. Ervin Lilly MD Abdomen/Pelvis CT 03/09/164 Signed Impressions: Service Date/Time: Wednesday, March 09, 2016 15:26 - CONCLUSION: 1. Chronic moderate to severe hydronephrosis bilaterally of indeterminate etiology. 2. Mild diffuse urinary bladder wall thickening. 3. Uncomplicated sigmoid diverticulosis. 4. Minimal prominence of the extrahepatic and central intrahepatic biliary system. Correlation with alkaline phosphatase and bilirubin levels is suggested to rule out biliary obstruction. 5. Small to moderate sized left pleural effusion and tiny right pleural effusion. 4. Cardiomegaly. 5. Atelectasis within the lingula of the left upper lobe. 6. Degenerative changes and scoliosis of the thoracolumbar spine. Ervin Lilly MD Physical Exam HEENT: Pupils round and reactive to light; normocephalic; atraumatic; no jaundice. Throat is clear. NECK: Neck is supple, no JVD, no lymphadenopathy. CHEST: Chest is clear to auscultation and percussion. CARDIAC: Regular rate and rhythm with no murmur gallop or rubs. ABDOMEN: Soft, nondistended, nontender; no hepatosplenomegaly; bowel sounds are present in all four quadrants. EXTREMITIES: No clubbing, dressing to lower left leg. general edema to left leg and discoloration SKIN: Normal; no rash; no jaundice. SOCIAL RESEARCH ASSISTANT: alert and oriented. (Kevin Gardner) Assessment and Plan Plan - Dysphagia on going for a long time- will need EGD/dill, however,Coumadin on hold - Abd pain- she denies this for me, CT showed urinary blader wall thickening, diverticulosis, prominence of extrahepatics duct, small pleural effusion, cardiomegaly and degenerative changes. LFTs normal - Anemia- hgb stable,she reports black stools today, but when asked further, she states, the stools are always black - Hypokalemia per attending - ?CHF, A-fib cardiology consulted, - Hydronephrosis, Urology on the case - AKF per attending Plan - MARCIE - EGD/dill in the am - NPO mn - S/p clearance by cardiology - Will add Protonix PO - Cont. Carafate - Monitor hh - Supportive care - Patient seen and examined by Dr. Garibay and myself and this note is written on his behalf. (Kevin Gardner) Physician Comments Seen and examined, discussed with patient and family, will proceed with EGD and possible dilatation in AM. Further recommendations to follow. (John Garibay MD) Kevin Gardner Mar 13, 2016 17:00 John Garibay MD Mar 13, 2016 21:44
[2016-03-13] MEDS: PRAVASTATIN SOD 40 MG TAB PO SCH (21:47)
[2016-03-14] VITALS (8 sets, daily range): BP systolic 118–151; BP diastolic 74–91; PULSE 69–117; RESP 16–20; TEMP 95.4–98.1; O2SAT 94–100
[2016-03-14] MEDS: traMADol HCL 50 MG TAB PO PRN ×2 (01:41→22:20)
[2016-03-14] MEDS: SODIUM CHLORID 0.9% 500 ML IV SCH ×2 (01:45→17:02)
[2016-03-14] MEDS: LACTATED RINGER'S 1000 ML IV SCH ×2 (01:45→19:56)
[2016-03-14 05:02] LABS: BASOPHIL % 0.7 % (0.0-2.0); HEMATOCRIT 27.9 % (35.0-46.0); HEMO FLAGS DIFF FINAL; LYMPHOCYTE # 1.4 TH/MM3 (1.0-4.8); MEAN CELL VOLUME 106.3 FL (80.0-100.0); MEAN CORPUSCULAR HEMOGLOBIN 36.4 PG (27.0-34.0); MEAN CORPUSCULAR HGB CONC 34.2 % (32.0-36.0); MONO % 26.2 % (0.0-8.0); NEUT % 30.1 % (16.0-70.0); PLATELET COUNT 214 TH/MM3 (150-450); RED BLOOD COUNT 2.63 MIL/MM3 (4.00-5.30); RED CELL DISTRIBUTION WIDTH 16.5 % (11.6-17.2); WHITE BLOOD COUNT 3.3 TH/MM3 (4.0-11.0)
[2016-03-14 05:07] LABS: INTERNATIONAL NORMALIZED RATIO 1.5 RATIO; PROTHROMBIN TIME - PATIENT 16.5 SEC (9.8-11.6)
[2016-03-14] MEDS: ERYTHROMYCIN EC 250 MG TABEC PO SCH ×3 (05:32→19:54)
[2016-03-14] MEDS: LEVOTHYROXINE SODIUM 50 MCG TAB PO SCH (05:32)
[2016-03-14] MEDS: SUCRALFATE 1 GM/10 ML CUP PO SCH ×4 (05:33→19:45)
[2016-03-14 05:56] LABS: BICARBONATE 27.4 MEQ/L (21.0-32.0)
[2016-03-14] MEDS: INSULIN ASPART SUPPLEMENTAL SCALE SQ SCH ×4 (06:00→19:48)
[2016-03-14] MEDS: POLYETHYLENE GLYCOL 17 GM PKG PO SCH (08:16)
[2016-03-14] MEDS: DOCUSATE SODIUM 50 MG/SENNA 8.6 MG TAB PO SCH ×2 (08:16→19:45)
[2016-03-14] MEDS: GABAPENTIN 300 MG CAP PO SCH ×2 (08:16→19:46)
[2016-03-14] MEDS: TOLTERODINE TARTRATE 2 MG CAP LA PO SCH (08:16)
[2016-03-14] MEDS: POTASSIUM CL 40 MEQ/30 ML LIQ UDC PO SCH (08:16)
[2016-03-14] MEDS: MULTIVITAMINS/MINERALS THERAPEUTIC TAB PO SCH (08:17)
[2016-03-14] MEDS: NYSTAT/DIPHENHY/LIDO MOUTHWASH (Adult) 120ML SWISH-SWAL SCH ×4 (08:17→19:46)
[2016-03-14] MEDS: METOPROLOL SUCCINATE 25 MG EXTENDED RELEASE TAB PO SCH (08:22)
[2016-03-14] MEDS: SODIUM CHLORIDE 0.9% FLUSH 5 ML FLUSH FLUSH SCH ×2 (08:22→19:45)
[2016-03-14] MEDS: ESTRADIOL 0.1 MG/GM VAG CREAM 42.5 GM VAGINAL SCH ×3 (08:25→19:47)
--- NOTE | 2016-03-14 08:25 | PD.CARD.PN ---
Subjective Subjective Remarks Pt without cv complaints Objective Medications Current Medications Medications (Trade) Dose Ordered Sig/Armin Route Start Time Stop Time Status Last Admin (NS Flush) 2 ml UNSCH PRN FLUSH 03/09/16 16:30 (NS Flush) 2 ml BID FLUSH 03/09/16 21:00 03/13/16 21:46 (Tylenol) 650 mg Q4H PRN PO 03/09/16 16:30 (Zofran Inj) 4 mg Q6H PRN IVP 03/09/16 16:30 03/09/16 20:29 (Compazine Supp) 25 mg Q12H PRN [place] 03/09/16 16:30 (Dulcolax Supp) 10 mg DAILY PRN [place] 03/09/16 16:30 (Milk Of Magnesia Liq) 30 ml Q12H PRN PO 03/09/16 16:30 03/13/16 10:21 (Senokot) 17.2 mg Q12H PRN PO 03/09/16 16:30 (Restoril) 15 mg HS PRN PO 03/09/16 16:30 (Erythromycin Ec) 250 mg Q8HR PO 03/09/16 22:00 03/13/16 21:47 (Neurontin) 300 mg BID PO 03/09/16 21:00 03/13/16 21:47 (Synthroid) 50 mcg DAILY@06 PO 03/10/16 06:00 03/13/16 06:20 (Toprol Xl) 25 mg DAILY PO 03/10/16 09:00 03/13/16 08:59 (Theragran M Tab) 1 tab DAILY PO 03/10/16 09:00 03/13/16 08:59 (Miralax) 17 gm DAILY PO 03/10/16 09:00 03/13/16 09:00 (Coumadin) 5 mg DAILY@1600 PO 03/09/16 17:38 Hold 03/11/16 16:35 (KCl 40 Meq/30 ml Liq) 2.53 meq DAILY PO 03/10/16 09:00 03/13/16 08:59 (Pravachol) 40 mg HS PO 03/09/16 21:00 03/13/16 21:47 (Detrol La) 2 mg DAILY PO 03/10/16 09:00 12/21/16 08:59 (D50w (Vial) Inj) 25 ml UNSCH PRN IV PUSH 03/09/16 16:30 (Glucagon Inj) 1 mg UNSCH PRN OTHER 03/09/16 16:30 (Teagan-Colace) 2 tab BID PO 03/09/16 21:00 03/13/16 08:59 (Teagan-Colace) 2 tab BID PRN PO 03/09/16 17:30 Tramadol HCl 50 mg 50 mg Q8H PRN PO 03/09/16 18:00 03/14/16 01:41 (Coumadin Consult Pharmacy) 0 ml @ 0 mls/hr UNSCH OTHER 03/09/16 17:30 (Estrace 0.01% Vag Cream) 1 appl BID VAGINAL 03/10/16 21:00 03/13/16 21:48 (Magic Mouthwash Adult Liq) 5 ml QID SWISH-SWAL 03/11/16 18:00 03/13/16 21:00 (Carafate Liq) 1 gm ACHS PO 03/11/16 21:00 03/13/16 21:46 (Fleets Enema (Adult)) 133 ml UNSCH PRN MO 03/11/16 22:00 Pantoprazole Sodium 20 mg 20 mg DAILY PO 03/14/16 09:00 Lactated Ringer's 1,000 ml @ 30 mls/hr Q24H IV 03/14/16 01:45 (NS 500 ml Inj) 500 ml @ 30 mls/hr [id number] IV 03/14/16 01:45 03/15/16 01:44 Vital Signs / I&O Vital Signs Date Time Temp Pulse Resp B/P Pulse Ox O2 Delivery O2 Flow Rate FiO2 03/14/16 07:53 96.8 81 16 126/79 94 03/14/16 04:00 95.4 87 18 151/91 98 03/14/16 00:00 97.3 80 18 118/75 100 03/13/16 20:00 96.3 68 20 136/64 93 03/13/16 19:59 90 03/13/16 16:00 96.5 100 20 103/70 98 03/13/16 12:00 97.0 76 18 124/76 99 I/O 03/13/16 03/13/16 03/13/16 03/14/16 03/14/16 12/22/16 06:59 14:59 22:59 06:59 14:59 22:59 Intake Total 660 ml 480 ml 120 ml 0 ml Balance 660 ml 480 ml 120 ml 0 ml Intake Oral 660 ml 480 ml 120 ml 0 ml # Voids 5 4 1 1 # Bowel Movements 3 2 Physical Exam GENERAL: Well developed, well nourished. No acute distress. HEENT: Jugular venous pressure is normal. CHEST: Lungs clear to auscultation bilaterally. Unlabored respiratory effort. CARDIAC: irregular rate and rhythm without S3, S4, or murmur. ABDOMEN: Soft, nontender, no hepatosplenomegaly. Bowel sounds present. EXTREMITIES: No clubbing, cyanosis, or edema. Laboratory Laboratory Tests Test 03/14/16 04:18 White Blood Count 3.3 TH/MM3 Red Blood Count 2.63 MIL/MM3 Hemoglobin 9.6 GM/DL Hematocrit 27.9 % Mean Corpuscular Volume 106.3 FL Mean Corpuscular Hemoglobin 36.4 PG Mean Corpuscular Hemoglobin 34.2 % Concent Red Cell Distribution Width 16.5 % Platelet Count 214 TH/MM3 Mean Platelet Volume 9.8 FL Neutrophils (%) (Auto) 30.1 % Lymphocytes (%) (Auto) 42.0 % Monocytes (%) (Auto) 26.2 % Eosinophils (%) (Auto) 1.0 % Basophils (%) (Auto) 0.7 % Neutrophils # (Auto) 1.0 TH/MM3 Lymphocytes # (Auto) 1.4 TH/MM3 Monocytes # (Auto) 0.9 TH/MM3 Eosinophils # (Auto) 0.0 TH/MM3 Basophils # (Auto) 0.0 TH/MM3 CBC Comment DIFF FINAL Differential Comment Prothrombin Time 16.5 SEC Prothromb Time International 1.5 RATIO Ratio Sodium Level 141 MEQ/L Potassium Level 4.0 MEQ/L Chloride Level 104 MEQ/L Carbon Dioxide Level 27.4 MEQ/L Anion Gap 10 MEQ/L Blood Urea Nitrogen 32 MG/DL Creatinine 1.35 MG/DL Estimat Glomerular Filtration 37 ML/MIN Rate Random Glucose 83 MG/DL Calcium Level 8.3 MG/DL Magnesium Level 3.0 MG/DL Assessment and Plan Assessment and Plan Congestive heart failure - appears stable Elevated troponin, chronic and likely secondary to her heart failure. AF- coumadin on hold for EGD, today WCT- no further episodes EGD- today- SVT- AF per device check Code status - the patient has indicated to me that she does not want any invasive cardiology procedures which is reasonable. Consideration should be given towards do not resuscitate. Chantel Osorio MD Mar 14, 2016 08:25
[2016-03-14] MEDS ORDERED: PANTOPRAZOLE SOD 20 MG DELAYED RELEASE TAB PO SCH (09:00)
--- NOTE | 2016-03-14 10:15 | HHI.PR ---
Subjective Remarks seen with son at bedside patient is very feisty, realistic goals she tolerated po well patient main complain is sounds like chest discomfort that is GI related- burping relieves it- as OP taking peptobismol a lot d/w them results of EGD- esophagitis with a possible gastric mass- biopsied done Objective Vitals Vital Signs Date Time Temp Pulse Resp B/P Pulse Ox O2 Delivery O2 Flow Rate FiO2 03/14/16 07:53 96.8 81 16 126/79 94 03/14/16 04:00 95.4 87 18 151/91 98 03/14/16 00:00 97.3 80 18 118/75 100 03/13/16 20:00 96.3 68 20 136/64 93 03/13/16 19:59 90 03/13/16 16:00 96.5 100 20 103/70 98 03/13/16 12:00 97.0 76 18 124/76 99 I/O 03/13/16 03/13/16 03/13/16 03/14/16 03/14/16 03/14/16 06:59 14:59 22:59 06:59 14:59 22:59 Intake Total 660 ml 480 ml 120 ml 0 ml Balance 660 ml 480 ml 120 ml 0 ml Intake Oral 660 ml 480 ml 120 ml 0 ml # Voids 5 4 1 1 # Bowel Movements 3 2 Result Diagram: 03/14/16 0418 03/14/16 0418 Imaging Last Impressions Lower Extremity Ultrasound 03/12/16 0000 Signed Impressions: Service Date/Time: Saturday, March 12, 2016 14:41 - CONCLUSION: 1. No DVT identified within either lower extremity. 2. Small Doan's cyst within the popliteal fossa bilaterally. Cole Mondragon MD Chest X-Ray 03/09/16 1414 Signed Impressions: Service Date/Time: Wednesday, March 09, 2016 14:40 - CONCLUSION: 1. Small left pleural effusion. 2. Cardiomegaly. 3. Degenerative changes and scoliosis of the thoracolumbar spine. Ervin Lilly MD Abdomen/Pelvis CT 03/09/16 1414 Signed Impressions: Service Date/Time: Wednesday, March 09, 2016 15:26 - CONCLUSION: 1. Chronic moderate to severe hydronephrosis bilaterally of indeterminate etiology. 2. Mild diffuse urinary bladder wall thickening. 3. Uncomplicated sigmoid diverticulosis. 4. Minimal prominence of the extrahepatic and central intrahepatic biliary system. Correlation with alkaline phosphatase and bilirubin levels is suggested to rule out biliary obstruction. 5. Small to moderate sized left pleural effusion and tiny right pleural effusion. 4. Cardiomegaly. 5. Atelectasis within the lingula of the left upper lobe. 6. Degenerative changes and scoliosis of the thoracolumbar spine. Ervin Lilly MD Objective Remarks GENERAL: not in distress, a x o x 3 SKIN: Warm and dry. HEAD: Normocephalic. EYES: No scleral icterus. No injection or drainage. NECK: Supple, trachea midline. No JVD or lymphadenopathy. CARDIOVASCULAR: Regular rate and rhythm without murmurs, gallops, or rubs. RESPIRATORY: Breath sounds equal bilaterally. No accessory muscle use. GASTROINTESTINAL: Abdomen soft, non-tender, nondistended. MUSCULOSKELETAL: No cyanosis, left leg- some swelling no tenderness skin with multiple nevus motor equal on all extremities Procedures 03/14- EGD- esophagitis with gastric mass A/P Assessment and Plan 89-year-old female with past medical history of HTN, HLD, DM, A. fib, GERD, PE, hypothyroidism, CHF, h/o gastric CA who presented with abdominal pain Chest pain- complains- by description- more GI by description on BB. Coumadin held for procedure Dysphagia / esophageal strictures/ spasm EGD- esophagitis. gastric mass - ate better today advise on reflux measures Chest pain - She did have a run of vTach. Seen by Dr Osorio cardiology patien is at mod risk for procedure. Pt had a recent negative stress test. 2D ECHO shows EF of 40-45 % Abdominal pain: Acute on chronic. Complicated intra-abdominal history of gastric cancer multiple abdominal surgeries. S/P EGD- esophagitis with gastric mass seen- biopsy performed Etiology of the pain could be multifactorial. GERD start PPI. Sucralfate Abdominal CT reviewed, numerous changes that appear to be chronic, unsure if any acute process. Suspect symptoms worsened by constipation, will give cathartics, laxatives, enemas. GI ff Patient is on coumadin. GI recommends holding coumadin x3 days ( since ) because she does need EGD/dil. Patient is however refusing any other anticoagulation at this time. Seen by Dr Osorio cardiology patien is at mod risk for procedure. Pt had a recent negative stress test. 2D ECHO shows EF of 40-45 %. Hypokalemia 2/2 poor PO intake. Replace and monitor. Eating better today. No pain. Left leg wound present on admission. Change dressing daily: single layer xeroform and dry cover daily.Discussed with wound care nurse. LE edema; - negative for DVT Patient has a h/o LE DVT History of diastolic CHF: Patient appears volume overloaded with pulmonary crackles and lower extremity on exam and left pleural effusion seen on imaging, however patient denies any symptoms. Previous echocardiogram from 2014 reviewed , essentially within normal limits, repeat echocardiogram. Check BNP. Caution with IV hydration. DC IVF as patient can have po. Continue metoprolol. Hydronephrosis: Abdominal CT showed "chronic moderate to severe hydronephrosis bilaterally of undetermined etiology". UA unremarkable. Consult patient's urologist, Dr. Eduardo. Monitor urine output. Has a good UOP. Confusion: she is very interactive. loves to talk. a x ox x3 Psychiatry appreciated. Hypokalemia: Potassium 2.5 on admission . Replace IV and orally. Check magnesium. Follow-up BMP. Will DC IVF NS. Continue 1/2 NS NaCL with 10 mEq KCl as K still low. Monitor electrolytes closely. Acute kidney injury: Creatinine 1.3, previously 1.04 on 02/05/16. Patient appears volume overloaded on exam, possibly a cardiorenal component. Caution with IVF. Hold home Lasix and HCTZ for now. Follow-up BMP. Change NS IVF to Gentle IV hydration with 1/2 NCL with KCL at 60cc. Monitor kidney function. Will consider nephrology consult. Diabetes mellitus: Hold home metformin. SSI with Accu-Cheks. Chronic anticoagulation: Secondary to atrial fibrillation and history of DVT/ PE. INR subtherapeutic, continue Coumadin and consult pharmacy for dosing. Anemia: macrocytic. Will check B12, folate, iron panel, ferritin normal. Vit D is 23. Other chronic medical conditions include HLD, GERD, hypothyroidism: consult Palliative care- to determine goals of care Discussed with the patient, nurse, son at bedside. Jeremiah Payne MD Mar 14, 2016 10:15
[2016-03-14] MEDS ORDERED: PROPOFOL 200 MG/20 ML AMP IV PUSH ONE (12:37)
[2016-03-14] MEDS ORDERED: DO NOT ADM ANY ANTICOAGULANT DRUGS XX PRN (12:39)
[2016-03-14] MEDS: PRAVASTATIN SOD 40 MG TAB PO SCH (19:46)
[2016-03-14] MEDS: PANTOPRAZOLE SOD 40 MG DELAYED RELEASE TAB PO SCH (19:46)
[2016-03-15] VITALS (7 sets, daily range): BP systolic 113–161; BP diastolic 70–100; PULSE 69–92; RESP 17–20; TEMP 96.5–99.2; O2SAT 96–100
[2016-03-15 04:51] LABS: INTERNATIONAL NORMALIZED RATIO 1.3 RATIO; PROTHROMBIN TIME - PATIENT 15.1 SEC (9.8-11.6)
[2016-03-15] MEDS: ERYTHROMYCIN EC 250 MG TABEC PO SCH ×3 (06:21→21:35)
[2016-03-15] MEDS: LEVOTHYROXINE SODIUM 50 MCG TAB PO SCH (06:21)
[2016-03-15] MEDS: SUCRALFATE 1 GM/10 ML CUP PO SCH ×4 (06:21→21:20)
[2016-03-15] MEDS: INSULIN ASPART SUPPLEMENTAL SCALE SQ SCH ×4 (06:21→21:00)
[2016-03-15] MEDS: METOPROLOL SUCCINATE 25 MG EXTENDED RELEASE TAB PO SCH (08:28)
[2016-03-15] MEDS: TOLTERODINE TARTRATE 2 MG CAP LA PO SCH (08:29)
[2016-03-15] MEDS: POTASSIUM CL 40 MEQ/30 ML LIQ UDC PO SCH (08:29)
[2016-03-15] MEDS: GABAPENTIN 300 MG CAP PO SCH ×2 (08:29→21:21)
[2016-03-15] MEDS: MULTIVITAMINS/MINERALS THERAPEUTIC TAB PO SCH (08:29)
[2016-03-15] MEDS: DOCUSATE SODIUM 50 MG/SENNA 8.6 MG TAB PO SCH ×2 (08:29→21:20)
[2016-03-15] MEDS: POLYETHYLENE GLYCOL 17 GM PKG PO SCH (08:29)
[2016-03-15] MEDS: PANTOPRAZOLE SOD 40 MG DELAYED RELEASE TAB PO SCH ×2 (08:29→21:20)
[2016-03-15] MEDS: NYSTAT/DIPHENHY/LIDO MOUTHWASH (Adult) 120ML SWISH-SWAL SCH ×4 (08:30→21:36)
[2016-03-15] MEDS: ESTRADIOL 0.1 MG/GM VAG CREAM 42.5 GM VAGINAL SCH ×2 (08:30→21:35)
[2016-03-15] MEDS: SODIUM CHLORIDE 0.9% FLUSH 5 ML FLUSH FLUSH SCH ×2 (08:30→21:22)
--- NOTE | 2016-03-15 08:31 | PD.CARD.PN ---
Subjective Subjective Remarks Pt without CV complaints and denies palps to me, though she reoported them to RN yesterday Objective Medications Current Medications Medications (Trade) Dose Ordered Sig/Armin Route Start Time Stop Time Status Last Admin (NS Flush) 2 ml UNSCH PRN FLUSH 03/09/16 16:30 (NS Flush) 2 ml BID FLUSH 03/09/16 21:00 03/14/16 19:45 (Tylenol) 650 mg Q4H PRN PO 03/09/16 16:30 (Zofran Inj) 4 mg Q6H PRN IVP 03/09/16 16:30 03/09/16 20:29 (Compazine Supp) 25 mg Q12H PRN HI 03/09/16 16:30 (Dulcolax Supp) 10 mg DAILY PRN HI 03/09/16 16:30 (Milk Of Magnesia Liq) 30 ml Q12H PRN PO 03/09/16 16:30 03/13/16 10:21 (Senokot) 17.2 mg Q12H PRN PO 03/09/16 16:30 (Restoril) 15 mg HS PRN PO 03/09/16 16:30 (Erythromycin Ec) 250 mg Q8HR PO 03/09/16 22:00 03/15/16 06:21 (Neurontin) 300 mg BID PO 03/09/16 21:00 03/14/16 19:46 (Synthroid) 50 mcg DAILY@06 PO 03/10/16 06:00 03/15/16 06:21 (Toprol Xl) 25 mg DAILY PO 03/10/16 09:00 03/14/16 08:22 (Theragran M Tab) 1 tab DAILY PO 03/10/16 09:00 03/13/16 08:59 (Miralax) 17 gm DAILY PO 03/10/16 09:00 03/13/16 09:00 (Coumadin) 5 mg DAILY@1600 PO 03/09/16 17:38 Hold 03/11/16 16:35 (KCl 40 Meq/30 ml Liq) 2.53 meq DAILY PO 03/10/16 09:00 03/13/16 08:59 (Pravachol) 40 mg HS PO 03/09/16 21:00 03/14/16 19:46 (Detrol La) 2 mg DAILY PO 03/10/16 09:00 03/13/16 08:59 (D50w (Vial) Inj) 25 ml UNSCH PRN IV PUSH 03/09/16 16:30 (Glucagon Inj) 1 mg UNSCH PRN OTHER 03/09/16 16:30 (Teagan-Colace) 2 tab BID PO 03/09/16 21:00 03/13/16 08:59 (Teagan-Colace) 2 tab BID PRN PO 03/09/16 17:30 Tramadol HCl 50 mg 50 mg Q8H PRN PO 03/09/16 18:00 03/14/16 22:20 (Coumadin Consult Pharmacy) 0 ml @ 0 mls/hr UNSCH OTHER 03/09/16 17:30 (Estrace 0.01% Vag Cream) 1 appl BID VAGINAL 03/10/16 21:00 03/13/16 21:48 (Magic Mouthwash Adult Liq) 5 ml QID SWISH-SWAL 03/11/16 18:00 03/14/16 19:46 (Carafate Liq) 1 gm ACHS PO 03/11/16 21:00 03/15/16 06:21 Sodium Biphosphate/ Sodium Phosphate 133 ml 133 ml UNSCH PRN HI 03/11/16 22:00 (Lr 1000 ml Inj) 1,000 ml @ 30 mls/hr Q24H IV 03/14/16 01:45 Miscellaneous Information ALL NURSING DEPARTME... UNSCH PRN XX 03/14/16 12:39 03/15/16 12:38 (Protonix) 40 mg BID PO 03/14/16 21:00 03/14/16 19:46 Vital Signs / I&O Vital Signs Date Time Temp Pulse Resp B/P Pulse Ox O2 Delivery O2 Flow Rate FiO2 03/15/16 08:00 96.8 73 18 161/97 100 03/15/16 04:00 96.6 79 20 156/100 97 03/15/16 00:00 99.2 92 20 133/81 100 03/14/16 20:20 117 03/14/16 20:00 97.4 87 20 129/80 97 03/14/16 16:00 97.0 69 16 121/74 100 03/14/16 12:58 75 16 135/94 100 03/14/16 12:48 78 16 136/92 94 03/14/16 12:40 97.7 71 16 124/77 100 03/14/16 12:00 96.9 78 16 138/79 94 03/14/16 11:57 98.1 81 16 126/79 94 I/O 03/14/16 03/14/16 03/14/16 03/15/16 03/15/16 03/15/16 06:59 14:59 22:59 06:59 14:59 22:59 Intake Total 0 ml 340 ml 240 ml 240 ml Output Total 750 ml 250 ml Balance 0 ml -410 ml 240 ml -10 ml Intake Oral 0 ml 240 ml 240 ml 240 ml IV Total 0 ml 0 ml Other 100 ml Output Urine Total 750 ml 250 ml # Voids 1 2 2 # Bowel Movements 1 0 Physical Exam GENERAL: Well developed, well nourished. No acute distress. HEENT: Jugular venous pressure is normal. CHEST: Lungs clear to auscultation bilaterally. Unlabored respiratory effort. CARDIAC: irregular rate and rhythm without S3, S4, or murmur. ABDOMEN: Soft, nontender, no hepatosplenomegaly. Bowel sounds present. EXTREMITIES: No clubbing, cyanosis, or edema. Laboratory Laboratory Tests Test 03/15/16 03:35 Prothrombin Time 15.1 SEC Prothromb Time International 1.3 RATIO Ratio Assessment and Plan Assessment and Plan Congestive heart failure - baseline Elevated troponin, chronic and likely secondary to her heart failure. AF- episodes RVR on tele; increase beta tejal -coumadin if felt appropriate WCT- atrial per pacer EGD- gastric mass SVT- AF per device check DNR Chantel Osorio MD Mar 15, 2016 08:30
--- NOTE | 2016-03-15 08:48 | HHI.PR ---
Subjective Remarks still with some mild discomfort with swallowing no nausea or vomiting telemetry with episodes of WCT Objective Vitals Vital Signs Date Time Temp Pulse Resp B/P Pulse Ox O2 Delivery O2 Flow Rate FiO2 03/15/16 08:00 96.8 73 18 161/97 100 03/15/16 04:00 96.6 79 20 156/100 97 03/15/16 00:00 99.2 92 20 133/81 100 03/14/16 20:20 117 03/14/16 20:00 97.4 87 20 129/80 97 03/14/16 16:00 97.0 69 16 121/74 100 03/14/16 12:58 75 16 135/94 100 03/14/16 12:48 78 16 136/92 94 03/14/16 12:40 97.7 71 16 124/77 100 03/14/16 12:00 96.9 78 16 138/79 94 03/14/16 11:57 98.1 81 16 126/79 94 I/O 03/14/16 03/14/16 03/14/16 03/15/16 03/15/16 03/15/16 07:00 15:00 23:00 07:00 15:00 23:00 Intake Total 0 ml 340 ml 240 ml 240 ml Output Total 750 ml 250 ml Balance 0 ml -410 ml 240 ml -10 ml Intake Oral 0 ml 240 ml 240 ml 240 ml IV Total 0 ml 0 ml Other 100 ml Output Urine Total 750 ml 250 ml # Voids 1 2 2 # Bowel Movements 1 0 Result Diagram: 03/14/16 0418 03/14/16 0418 Imaging Last Impressions Lower Extremity Ultrasound 03/12/16 0000 Signed Impressions: Service Date/Time: Saturday, March 12, 2016 14:41 - CONCLUSION: 1. No DVT identified within either lower extremity. 2. Small Doan's cyst within the popliteal fossa bilaterally. Cole Mondragon MD Chest X-Ray 03/09/16 1414 Signed Impressions: Service Date/Time: Wednesday, March 09, 2016 14:40 - CONCLUSION: 1. Small left pleural effusion. 2. Cardiomegaly. 3. Degenerative changes and scoliosis of the thoracolumbar spine. Ervin Lilly MD Abdomen/Pelvis CT 03/09/16 1414 Signed Impressions: Service Date/Time: Wednesday, March 09, 2016 15:26 - CONCLUSION: 1. Chronic moderate to severe hydronephrosis bilaterally of indeterminate etiology. 2. Mild diffuse urinary bladder wall thickening. 3. Uncomplicated sigmoid diverticulosis. 4. Minimal prominence of the extrahepatic and central intrahepatic biliary system. Correlation with alkaline phosphatase and bilirubin levels is suggested to rule out biliary obstruction. 5. Small to moderate sized left pleural effusion and tiny right pleural effusion. 4. Cardiomegaly. 5. Atelectasis within the lingula of the left upper lobe. 6. Degenerative changes and scoliosis of the thoracolumbar spine. Ervin Lilly MD Objective Remarks GENERAL: not in distress, a x o x 3 SKIN: Warm and dry. HEAD: Normocephalic. EYES: No scleral icterus. No injection or drainage. NECK: Supple, trachea midline. No JVD or lymphadenopathy. CARDIOVASCULAR: irregular rhythm, on telemetry- occasionally paced RESPIRATORY: decreased breath sousnds bases, no rales, No accessory muscle use. GASTROINTESTINAL: Abdomen soft, non-tender, nondistended. MUSCULOSKELETAL: No cyanosis, left leg- mild swelling no tenderness skin with multiple nevus motor equal on all extremities Procedures 03/14- EGD- esophagitis with gastric mass A/P Assessment and Plan 89-year-old female with past medical history of HTN, HLD, DM, A. fib, GERD, PE, hypothyroidism, CHF, h/o gastric CA who presented with abdominal pain Chest pain - history of atrial fibrillation with some run of vTach. - patient stable Pt had a recent negative stress test. 2D ECHO shows EF of 40-45 % PM checked - functioning on BB-- Dr. Osorio will adjust dose S/P EGD- Esophagitis with gastric mass- biopsy done 03/14 History of gastric cancer with gastric surgeries/resection in the past patient swallowing improved. but still experienced slight difficulty and has to belch discussed with her regarding small meals states she would want surgery if needed but no radiation or chemotherapy- will ff pathology report= pending continue on PPI states she had surgeries done by Dr. Jelena solorzano and last one with Dr. Bronson would want to be evaluated by GS - and would agree to surgery if warranted Continue to hold coumadin for now until evaluated by GS. start Lovenox Patient is however refusing any other anticoagulation at this time. Hypokalemia 2/2 poor PO intake. Replace and monitor. Eating better. advise small meals Left leg wound present on admission. Change dressing daily: single layer xeroform and dry cover daily.Discussed with wound care nurse. LE edema; - negative for DVT Patient has a h/o LE DVT Hydronephrosis: Abdominal CT showed "chronic moderate to severe hydronephrosis bilaterally of undetermined etiology". UA unremarkable. Monitor urine output. Has a good UOP. Confusion: - resolved . she is very interactive. loves to talk. a x ox x3 Psychiatry appreciated. Hypokalemia: Potassium 2.5 on admission . Replace IV and orally. Check magnesium. Follow-up BMP. Will DC IVF NS. Acute kidney injury: Creatinine 1.3, previously 1.04 on 02/05/16. Patient appears volume overloaded on exam, possibly a cardiorenal component. Caution with IVF. Hold home Lasix and HCTZ for now. Follow-up BMP. Change NS IVF to Monitor kidney function. Diabetes mellitus: Hold home metformin. SSI with Accu-Cheks. Chronic anticoagulation: Secondary to atrial fibrillation and history of DVT/ PE. INR subtherapeutic, on Lovenox. Anemia: macrocytic. Will check B12, folate, iron panel, ferritin normal. Vit D is 23. Other chronic medical conditions include HLD, GERD, hypothyroidism: consult Palliative care- to determine goals of care 03/14- Discussed with the patient, nurse, son at bedside.- agreed with palliative care consult depending on discussion with palliative care and pathology- oncology consult or GS consult for evaluation Jeremiah Payne MD Mar 15, 2016 08:48 Jeremiah Payne MD Mar 15, 2016 08:48 Jeremiah Payne MD Mar 15, 2016 08:48 DC today - [facility] with home health care with Doctor's choice Jeremiah Payne MD Mar 15, 2016 08:48
[2016-03-15] MEDS ORDERED: METOPROLOL SUCCINATE 25 MG EXTENDED RELEASE TAB PO ONE (09:00)
[2016-03-15] MEDS: ENOXAPARIN SODIUM 80 MG/0.8 ML SYRINGE SQ SCH (10:29)
--- NOTE | 2016-03-15 10:30 | HHI.GIFU ---
Subjective Remarks Patient is sitting on edge of bed eating breakfast, no dysphagia, no nausea, no vomiting or abd pain, states if the mass is return of cancer, she would like to have it surgically removed. (Kevin Gardner JAYDEN) Objective Vitals I&O Vital Signs Date Time Temp Pulse Resp B/P Pulse Ox O2 Delivery O2 Flow Rate FiO2 03/15/16 09:19 97 21 03/15/16 08:00 96.8 73 18 161/97 100 03/15/16 04:00 96.6 79 20 156/100 97 03/15/16 00:00 99.2 92 20 133/81 100 03/14/16 20:20 117 03/14/16 20:00 97.4 87 20 129/80 97 03/14/16 16:00 97.0 69 16 121/74 100 03/14/16 12:58 75 16 135/94 100 03/14/16 12:48 78 16 136/92 94 03/14/16 12:40 97.7 71 16 124/77 100 03/14/16 12:00 96.9 78 16 138/79 94 03/14/16 11:57 98.1 81 16 126/79 94 I/O 03/14/16 03/14/16 03/14/16 03/15/16 03/15/16 03/15/16 07:00 15:00 23:00 07:00 15:00 23:00 Intake Total 0 ml 340 ml 240 ml 240 ml Output Total 750 ml 250 ml Balance 0 ml -410 ml 240 ml -10 ml Intake Oral 0 ml 240 ml 240 ml 240 ml IV Total 0 ml 0 ml Other 100 ml Output Urine Total 750 ml 250 ml # Voids 1 2 2 # Bowel Movements 1 0 Laboratory Laboratory Tests Test 03/15/16 03:35 Prothrombin Time 15.1 Prothromb Time International 1.3 Ratio Imaging Last Impressions Lower Extremity Ultrasound 03/12/16 0000 Signed Impressions: Service Date/Time: Saturday, March 12, 2016 14:41 - CONCLUSION: 1. No DVT identified within either lower extremity. 2. Small Doan's cyst within the popliteal fossa bilaterally. Cole Mondragon MD Chest X-Ray 03/09/16 1414 Signed Impressions: Service Date/Time: Wednesday, March 09, 2016 14:40 - CONCLUSION: 1. Small left pleural effusion. 2. Cardiomegaly. 3. Degenerative changes and scoliosis of the thoracolumbar spine. Ervin Lilly MD Abdomen/Pelvis CT 03/09/16 1414 Signed Impressions: Service Date/Time: Wednesday, March 09, 2016 15:26 - CONCLUSION: 1. Chronic moderate to severe hydronephrosis bilaterally of indeterminate etiology. 2. Mild diffuse urinary bladder wall thickening. 3. Uncomplicated sigmoid diverticulosis. 4. Minimal prominence of the extrahepatic and central intrahepatic biliary system. Correlation with alkaline phosphatase and bilirubin levels is suggested to rule out biliary obstruction. 5. Small to moderate sized left pleural effusion and tiny right pleural effusion. 4. Cardiomegaly. 5. Atelectasis within the lingula of the left upper lobe. 6. Degenerative changes and scoliosis of the thoracolumbar spine. Ervin Lilly MD Physical Exam HEENT: Pupils round and reactive to light; normocephalic; atraumatic; no jaundice. Throat is clear. NECK: Neck is supple, no JVD, no lymphadenopathy. CHEST: Chest is clear to auscultation and percussion. CARDIAC: Regular rate and rhythm with no murmur gallop or rubs. ABDOMEN: Soft, nondistended, nontender; no hepatosplenomegaly; bowel sounds are present in all four quadrants. EXTREMITIES: No clubbing, dressing to lower left leg. general edema to left leg and discoloration SKIN: Normal; no rash; no jaundice. 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 (Kevin GardnerP) Assessment and Plan Plan - Dysphagia on going for a long time- Resolved- S/P EGD on (03/14/16)----> class B esophagitis, Billroth II anastomosis , mass measuring 2X1 cm found in the gastric body, Bx pending - Abd pain- she denies this for me, CT showed urinary blader wall thickening, diverticulosis, prominence of extrahepatics duct, small pleural effusion, cardiomegaly and degenerative changes. LFTs normal - Anemia- hgb stable, EGD as above - Hypokalemia per attending - ?CHF, A-fib cardiology consulted, - Hydronephrosis, Urology on the case - AKF per attending Plan - MARCIE - Await Bx - Protonix PO - Cont. Carafate - Ok to dc home form GI stand point - Gi will sign off - F/u with gi in 2 weeks - Supportive care - Patient seen and examined by Dr. Garibay and myself and this note is written on his behalf. (Kevin Gardner) Physician Comments Agree with the plan as above, biopsies pending, further recommendations will be based on the biopsy results, stable from GI point of view for now. (John Garibay MD) Kevin Gardner Mar 15, 2016 10:30 John Garibay MD Mar 15, 2016 12:45
--- NOTE | 2016-03-15 15:07 | PD.CONS ---
Consult Service Palliative Care . Consult Requested By Dr. Payne . Primary Care Physician Leonor Ulloa MD . Reason for Consultation a. To assist with evaluation and management of symptoms including: weakness , abdominal pain. b. To assist medical decision maker(s) with: better understanding of current medical conditions; weighing benefits/burdens of medical treatment options; making medical treatment decisions. . HPI History of Present Illness Ms. Portillo is an 89-year-old female with past medical history of HTN, hypothyroidism, HLD, DM, A. fib, GERD, PE, hypothyroidism, CHF, h/o gastric cancer (adenocarcinoma) diagnosed originally in 2003 status post surgery, chemo and radiation therapy. He developed recurrence of gastric cancer in 2013 again underwent surgery with conversion of [place] to Javan-en-Y. She was not a candidate for additional chemotherapy at that time per her oncologist Dr. Arroyo. Patient presented to [facility] emergency department on 03/09/16 with abdominal pain, constipation. Initial evaluation revealed acute renal insufficiency with creatinine 1.35. Troponins were elevated 0.08, 0.08, 0.09 sequentially. Cardiology, Dr. Osorio was consulted, elevated troponin likely secondary to congestive heart failure, no plan for surgical intervention. CT scan abdomen/pelvis revealed chronic moderate to severe hydronephrosis bilaterally, mild diffuse urinary lateral wall thickening, uncomplicated sigmoid diverticulosis, minimal prominence of extrahepatic and central intrahepatic biliary system, small to moderate size left pleural effusion, tiny right pleural effusion, cardiomegaly, atelectasis lower lobe, degenerative changes in scoliosis. Urology was consulted for bilateral hydronephrosis with recommendations for conservative management as patient has remained asymptomatic. Dysuria likely secondary to atrophic vaginitis, topical Estrace cream ordered. Can follow up as outpatient for cystoscopy if needed. Gastroenterology was consulted, patient underwent EGD on 01/13/16 and gastric biopsy. Pathology revealed poorly differentiated adenocarcinoma with significant ring features. Gen. surgery, Dr. Morfin has been consulted. Consult pending. Patient is interested in surgical intervention if she is a candidate per notes. Palliative care consulted to assist with further clarification of treatment goals. Met briefly with patient and her son, Lebron at bedside. Family wishes to be present when pathology reports are discussed with patient, further conversation delayed until family can be in attendance. Discussed with general surgery. Family meeting arranged 03/15/16 at 4 PM, general surgery will attend family meeting. . Function/Cognitive Trajectory Patient has progressed from using a cane to walker to motorized scooter. She is requiring more assistance with ADLs. . Review of Systems ROS Limitations: Hearing Impaired Constitutional: COMPLAINS OF: Fatigue, Weight loss, Change in appetite ( decreased), Generalized weakness Respiratory: COMPLAINS OF: Shortness of breath Cardiovascular: COMPLAINS OF: Dyspnea on Exertion, Lower Extremity Edema Gastrointestinal: COMPLAINS OF: Abdominal pain, Constipation, Dyspepsia or heartburn, Bloating Genitourinary: COMPLAINS OF: Dysuria Musculoskeletal: COMPLAINS OF: Back pain Hematologic/Lymphatics: COMPLAINS OF: Bruising Neurologic: COMPLAINS OF: Abnormal gait, Poor Balance Psychiatric: COMPLAINS OF: Confusion, Depression Past Family Social History Coded Allergies: Aspirin (Verified Allergy, Severe, 11/22/14) MILD REACTION; EXCESSIVE SALIVA Celebrex (Verified Allergy, Severe, RASH, 11/22/14) MILD REACTION-RASH Sulfa (Verified Allergy, Severe, Rash, 11/22/14) PT STATES SHE IS NOT ALLERGIC TO THIS MED Past Medical History Hypertension Hyperlipidemia Diabetes mellitus Atrial fibrillation History of PE on chronic anticoagulation GERD Hypothyroidism History of gastric cancer status post resection, chemo and radiation when originally diagnosed in 2003. Recurrence of gastric cancer 2013 status post surgery, no additional therapies. Chronic anemia/leukopenia CHF, diastolic Stress incontinence Dementia Depression . Past Surgical History Gastric cancer resection (2003) Javan-en-Y surgery (2013) Hysterectomy Cholecystectomy Dual Chamber Pacemaker placement . Reported Medications Reported Medications Simvastatin 20 Mg Tab20 Mg PO HS #30 TAB Ref 0 03/09/16 Polyethylene Glycol 3350 Powder (Miralax Powder)17 Gm Powd17 Gm PO DAILY #1 BOTTLE Ref 0 Mix and dissolve one measuring cap-ful (17 grams) in water or juice. 03/09/16 [place]-3 Fatty Acids (Fish Oil 1200 mg)1 Cap Cap1,200 Mg PO BID 03/09/16 Multiple Vitamins W/ Minerals (Theragran-M)1 Tab1 Tab PO DAILY Ref 0 03/09/16 Metoprolol Succinate ER 24 HR (Toprol XL)25 Mg Tab25 Mg PO DAILY #30 TAB Ref 0 03/09/16 Metformin 500 Mg [id number] Mg PO BID #60 TAB Ref 0 With meals 03/09/16 Gabapentin 300 Mg [id number] Mg PO BID #60 CAP Ref 0 03/09/16 Vitamin E (Alph-E)400 Unit Blx100 Units PO BID 03/09/16 Potassium 99 Mg Tab99 Mg PO DAILY 03/09/16 Levothyroxine (Synthroid)50 Mcg Tab50 Mcg PO DAILY #30 TAB Ref 0 03/09/16 Cholecalciferol (Vitamin D3)1,000 Unit Tab1,000 Units PO DAILY #1 BOTTLE Ref 0 03/09/16 Warfarin (Coumadin)5 Mg Tab5 Mg PO DAILY@1600 #30 TAB Ref 0 03/09/16 Solifenacin (Vesicare)5 Mg Tab5 Mg PO DAILY #30 TAB Ref 0 03/09/16 Tramadol 50 Mg Tab50 Mg PO Q8H Ref 0 03/09/16 Furosemide (Lasix)40 Mg Tab40 Mg PO DAILY #30 TAB Ref 0 03/09/16 Hydrochlorothiazide 25 Mg Tab25 Mg PO DAILY #30 TAB Ref 0 03/09/[address] (Jose Luis-Tab DR)250 Mg [id number] Mg PO Q8HR Ref 0 03/09/16 . Current Medications Medications (Trade) Dose Ordered Sig/Armin Route Start Time Stop Time Status Last Admin (NS Flush) 2 ml UNSCH PRN FLUSH 03/09/16 16:30 (NS Flush) 2 ml BID FLUSH 03/09/16 21:00 03/15/16 08:30 (Tylenol) 650 mg Q4H PRN PO 03/09/16 16:30 (Zofran Inj) 4 mg Q6H PRN IVP 03/09/16 16:30 03/09/16 20:29 (Compazine Supp) 25 mg Q12H PRN MA 03/09/16 16:30 (Dulcolax Supp) 10 mg DAILY PRN MA 03/09/16 16:30 (Milk Of Magnesia Liq) 30 ml Q12H PRN PO 03/09/16 16:30 03/13/16 10:21 (Senokot) 17.2 mg Q12H PRN PO 03/09/16 16:30 (Restoril) 15 mg HS PRN PO 03/09/16 16:30 (Erythromycin Ec) 250 mg Q8HR PO 03/09/16 22:00 03/15/16 13:43 (Neurontin) 300 mg BID PO 03/09/16 21:00 03/15/16 08:29 (Synthroid) 50 mcg DAILY@06 PO 03/10/16 06:00 03/15/16 06:21 (Theragran M Tab) 1 tab DAILY PO 03/10/16 09:00 03/15/16 08:29 (Miralax) 17 gm DAILY PO 03/10/16 09:00 03/13/16 09:00 (Coumadin) 5 mg DAILY@1600 PO 03/09/16 17:38 Hold 03/11/16 16:35 (KCl 40 Meq/30 ml Liq) 2.53 meq DAILY PO 03/10/16 09:00 03/15/16 08:29 (Pravachol) 40 mg HS PO 03/09/16 21:00 03/14/16 19:46 (Detrol La) 2 mg DAILY PO 03/10/16 09:00 03/15/16 08:29 (D50w (Vial) Inj) 25 ml UNSCH PRN IV PUSH 03/09/16 16:30 (Glucagon Inj) 1 mg UNSCH PRN OTHER 03/09/16 16:30 (Teagan-Colace) 2 tab BID PO 03/09/16 21:00 03/13/16 08:59 (Teagan-Colace) 2 tab BID PRN PO 03/09/16 17:30 Tramadol HCl 50 mg 50 mg Q8H PRN PO 03/09/16 18:00 03/14/16 22:20 (Coumadin Consult Pharmacy) 0 ml @ 0 mls/hr UNSCH OTHER 03/09/16 17:30 (Estrace 0.01% Vag Cream) 1 appl BID VAGINAL 03/10/16 21:00 03/13/16 21:48 (Magic Mouthwash Adult Liq) 5 ml QID SWISH-SWAL 03/11/16 18:00 03/15/16 13:43 (Carafate Liq) 1 gm ACHS PO 03/11/16 21:00 03/15/16 06:21 Sodium Biphosphate/ Sodium Phosphate 133 ml 133 ml UNSCH PRN MA 03/11/16 22:00 (Lr 1000 ml Inj) 1,000 ml @ 30 mls/hr Q24H IV 03/14/16 01:45 (Protonix) 40 mg BID PO 03/14/16 21:00 03/15/16 08:29 (Toprol Xl) 50 mg DAILY PO 03/16/16 09:00 (Lovenox Inj) 70 mg Q24H SQ 03/15/16 10:00 03/15/16 10:29 . Family History Mother had high blood pressure and severe arthritis. Son with mets head and neck cancer to liver. . Substance Use Tobacco: Alcohol: Prescription med abuse: Illicits: Psychosocial History . Has 4 sons. Patient is a resident of [facility] living [place]. . Spiritual/Cultural Factors [employer]. . Living Will: Completed, but not made available Health Care Surrogate: Completed, but not made available Ethical and Legal Issues Son indicates patient has written advance directives, copies requested. Son indicates that Solitario Portillo (son) is designated power of estate attorney and healthcare surrogate. Physical Exam Vital Signs Date Time Temp Pulse Resp B/P Pulse Ox O2 Delivery O2 Flow Rate FiO2 03/15/16 12:00 98.4 69 17 113/70 96 03/15/16 09:19 97 21 03/15/16 08:00 96.8 73 18 161/97 100 03/15/16 04:00 96.6 79 20 156/100 97 03/15/16 00:00 99.2 92 20 133/81 100 03/14/16 20:20 117 03/14/16 20:00 97.4 87 20 129/80 97 03/14/16 16:00 97.0 69 16 121/74 100 03/14/16 03/15/16 19:00 07:00 Intake Total 340 ml 480 ml Output Total 750 ml 250 ml Balance -410 ml 230 ml Intake Oral 240 ml 480 ml IV Total 0 ml Other 100 ml Output Urine Total 750 ml 250 ml # Voids 4 # Bowel Movements 1 Exam CONSTITUTIONAL/GENERAL: This is an frail, elderly patient, in no apparent distress. TUBES/LINES/DRAINS: PIV's, SCD's. SKIN: No jaundice. Ecchymoses on upper and lower extremities. Skin tear to left lower leg. Skin temperature appropriate. Not diaphoretic. Stasis dermatitis to left lower leg. HEAD: Atraumatic. Normocephalic. EYES: Pupils equal and round and reactive.No scleral icterus. No injection or drainage. Fundi not examined. ENT: Hard of hearing Nose without bleeding or purulent drainage. Throat without visible erythema, exudates, masses, or lesions. NECK: Trachea midline. Supple, nontender. No palpable thyroid enlargement or nodularity. CARDIOVASCULAR: Irregular rate and rhythm without murmurs, gallops, or rubs. No JVD. Peripheral pulses symmetric. RESPIRATORY/CHEST: Symmetric, unlabored respirations. Clear, diminished to auscultation. Breath sounds equal bilaterally. No wheezes, rales, or rhonchi. GASTROINTESTINAL: Abdomen soft, non-tender, mildly distended. No guarding. Bowel sounds present. GENITOURINARY: Without palpable bladder distension. MUSCULOSKELETAL: Extremities without clubbing, cyanosis. No calf tenderness. No mottling or clubbing. +1 edema to BLE L>R. NEUROLOGICAL: Awake and alert. Motor and sensory grossly within normal limits. Follows commands. Cognitively sharp. Moves all extremities. PSYCHIATRIC: very eloquent. No obvious anxiety/depression. no apparent hallucinations or other psychotic thought process. . Diagnostic Tests Laboratory Laboratory Tests Test 03/13/16 03/14/16 03/15/16 04:51 04:18 03:35 White Blood Count 2.5 TH/MM3 3.3 TH/MM3 (4.0-11.0) (4.0-11.0) Red Blood Count 2.42 MIL/MM3 2.63 MIL/MM3 (4.00-5.30) (4.00-5.30) Hemoglobin 8.5 GM/DL 9.6 GM/DL (11.6-15.3) (11.6-15.3) Hematocrit 25.7 % 27.9 % (35.0-46.0) (35.0-46.0) Mean Corpuscular Volume 106.2 FL 106.3 FL (80.0-100.0) (80.0-100.0) Mean Corpuscular Hemoglobin 35.3 PG 36.4 PG (27.0-34.0) (27.0-34.0) Mean Corpuscular Hemoglobin 33.3 % 34.2 % Concent (32.0-36.0) (32.0-36.0) Red Cell Distribution Width 16.4 % 16.5 % (11.6-17.2) (11.6-17.2) Platelet Count 203 TH/MM3 214 TH/MM3 (150-450) (150-450) Mean Platelet Volume 9.8 FL 9.8 FL (7.0-11.0) (7.0-11.0) Neutrophils (%) (Auto) % (16.0-70.0) 30.1 % (16.0-70.0) Lymphocytes (%) (Auto) % (9.0-44.0) 42.0 % (9.0-44.0) Monocytes (%) (Auto) % (0.0-8.0) 26.2 % (0.0-8.0) Eosinophils (%) (Auto) % (0.0-4.0) 1.0 % (0.0-4.0) Basophils (%) (Auto) % (0.0-2.0) 0.7 % (0.0-2.0) Neutrophils # (Auto) TH/MM3 1.0 TH/MM3 (1.8-7.7) (1.8-7.7) Lymphocytes # (Auto) TH/MM3 1.4 TH/MM3 (1.0-4.8) (1.0-4.8) Monocytes # (Auto) TH/MM3 (0-0.9) 0.9 TH/MM3 (0-0.9) Eosinophils # (Auto) TH/MM3 (0-0.4) 0.0 TH/MM3 (0-0.4) Basophils # (Auto) TH/MM3 (0-0.2) 0.0 TH/MM3 (0-0.2) CBC Comment AUTO DIFF DIFF FINAL Differential Total Cells 100 Counted Neutrophils % (Manual) 27 % (16-70) Band Neutrophils % 14 % (0-6) Lymphocytes % 49 % (9-44) Monocytes % 7 % (0-8) Eosinophils % 1 % (0-4) Basophils % 1 % (0-2) Neutrophils # (Manual) 1.1 TH/MM3 (1.8-7.7) Metamyelocytes 1 % (0-1) Differential Comment FINAL DIFF MANUAL Platelet Estimate NORMAL (NORMAL) Platelet Morphology Comment NORMAL (NORMAL) Ovalocytes 1+ (NORMAL) Keratocytes OCC (NORMAL) Prothrombin Time 20.7 SEC 16.5 SEC 15.1 SEC (9.8-11.6) (9.8-11.6) (9.8-11.6) Prothromb Time International 1.8 RATIO 1.5 RATIO 1.3 RATIO Ratio Sodium Level 143 MEQ/L 141 MEQ/L (136-145) (136-145) Potassium Level 3.7 MEQ/L 4.0 MEQ/L (3.5-5.1) (3.5-5.1) Chloride Level 105 MEQ/L 104 MEQ/L (98-107) (98-107) Carbon Dioxide Level 28.9 MEQ/L 27.4 MEQ/L (21.0-32.0) (21.0-32.0) Anion Gap 9 MEQ/L (5-15) 10 MEQ/L (5-15) Blood Urea Nitrogen 32 MG/DL (7-18) 32 MG/DL (7-18) Creatinine 1.32 MG/DL 1.35 MG/DL (0.50-1.00) (0.50-1.00) Estimat Glomerular Filtration 38 ML/MIN (>89) 37 ML/MIN (>89) Rate Random Glucose 122 MG/DL 83 MG/DL (74-106) (74-106) Calcium Level 7.9 MG/DL 8.3 MG/DL (8.5-10.1) (8.5-10.1) Magnesium Level 3.0 MG/DL (1.5-2.5) Result Diagram: 03/14/16 0418 03/14/16 0418 Imaging Last Impressions Lower Extremity Ultrasound 03/12/16 0000 Signed Impressions: Service Date/Time: Saturday, March 12, 2016 14:41 - CONCLUSION: 1. No DVT identified within either lower extremity. 2. Small Doan's cyst within the popliteal fossa bilaterally. Cole Mondragon MD Chest X-Ray 03/09/16 1414 Signed Impressions: Service Date/Time: Wednesday, March 09, 2016 14:40 - CONCLUSION: 1. Small left pleural effusion. 2. Cardiomegaly. 3. Degenerative changes and scoliosis of the thoracolumbar spine. Ervin Lilly MD Abdomen/Pelvis CT 03/09/16 1414 Signed Impressions: Service Date/Time: Wednesday, March 09, 2016 15:26 - CONCLUSION: 1. Chronic moderate to severe hydronephrosis bilaterally of indeterminate etiology. 2. Mild diffuse urinary bladder wall thickening. 3. Uncomplicated sigmoid diverticulosis. 4. Minimal prominence of the extrahepatic and central intrahepatic biliary system. Correlation with alkaline phosphatase and bilirubin levels is suggested to rule out biliary obstruction. 5. Small to moderate sized left pleural effusion and tiny right pleural effusion. 4. Cardiomegaly. 5. Atelectasis within the lingula of the left upper lobe. 6. Degenerative changes and scoliosis of the thoracolumbar spine. Ervin Lilly MD . Procedures * 01/13/16 EGD gastric biopsy positive poorly differentiated adenocarcinoma with signet ring features. . Other Pathology: * 01/13/16: gastric biopsy positive poorly differentiated adenocarcinoma with signet ring features. . Patient/Family Conference Present at Family Conference: Met with patient and her son, Lebron [place]. Family Conference Time (mins): 120 Family Conference Location: Bedside Issues Discussed: * Palliative care role, purpose, approach * Additional medical, psychosocial, and spiritual history * Patients general health, functional status, and cognitive changes in the months leading up to the current hospitalization * Patient/family understanding of the current medical problems * Patient/family understanding of prognosis * Patients goals of care as best understood from advance directives and/or conversations and/or values * Current medical treatment options and benefits/burdens of those options * Likely scenarios comparing ongoing aggressive care with a transition to comfort measures only * Questions answered to the best of my ability * Palliative care contact information provided Palliative care and Dr. Morfin met with patient and family to provide medical update including pathology report. She understands there are significant risks in surgery given advanced age, comorbidities and prior gastric surgeries. Dr. Morfin will request cardiology input for cardiac risk stratification. Will discuss with medical team, oncology and cardiology. She would also like input from her PCP, Dr. Leonor Lawton. Palliative care will continue to follow. Assessment and Plan Disease Oriented Problem List: (1) gastric cancer, recurrent (2) MINE (acute kidney injury) (3) Left leg pain (4) DM (diabetes mellitus) (5) Elevated troponin (6) Atrial fibrillation (7) Congestive heart failure (8) Bilateral hydronephrosis (9) Hypokalemia (10) Chest pain Symptom Scale: (1) Chest pain 0-10 Scale: 0 (2) Left leg pain 0-10 Scale: 2 (3) Weakness 0-10 Scale: Unable to quantify (4) Abdominal pain 0-10 Scale: 5 Pertinent Non-Medical Issues Psychosocial: . Supported by her sons. Spiritual: [employer]. Legal:Son indicates patient has written advance directives, copies requested. Son indicates that Solitario Portillo (son) is designated power of estate attorney and healthcare surrogate Ethical issues impacting care: no known concerns at this time. . Important Contacts * Solitario Portillo, son/HCP: [phone] lives local * Lebron Portillo, son: [phone] lives in [place] * David Portillo, son . Prognosis Ms. Cabrera is an 89-year-old female with multiple medical comorbidities including CHF, recurrent gastric cancer, chronic renal insufficiency, atrial fibrillation and possible early dementia. She was admitted with abdominal pain found to have recurrent poorly differentiated adenocarcinoma of the stomach. Since admission she had elevated troponin, likely chronic and secondary to heart failure, no plans for cardiac surgical intervention. Patient has had some ongoing functional and nutritional decline in the months prior to hospitalization. This is her 2nd acute-care hospitalization in the past month. Given her chronic comorbidities, advanced age, declining health she remains high risk for further decline and may be hospice appropriate if she is not a candidate for oncologic treatment. . Code Status: No Code Plan * Patient appears capacitated at this time. Son indicates patient has written advance directives, copies requested. Son indicates that Solitario Portillo (son) is designated power of estate attorney and healthcare surrogate. * NO CODE. * Palliative care and Dr. Morfin met with patient and family to provide medical update including pathology report. She understands there are significant risks in surgery given advanced age, comorbidities and prior gastric surgeries. Dr. Morfin will request cardiology input for cardiac risk stratification. Will discuss with medical team, oncology and cardiology. She would also like input from her PCP, Dr. Leonor Lawton. Palliative care will continue to follow. * Discussed with Dr. Payne and Dr. Morfin. * SYMPTOMS: weakness: general decline in the months leading up to this hospitalization, recurrent cancer. Continue PT. Abdominal pain: secondary to recurrent gastric cancer. Has tramadol 50 mg PO Q8 hours ordered, sparing need , will monitor. * Palliative care number provided. * Palliative care will continue to follow throughout hospital course to assist with symptom management and further clarification of treatment goals as needed. . Thank you for the opportunity to participate in the care of Ms. Portillo. Attestation To help prompt me to consider important information that might be impacting today's encounter and assessment, information from prior notes written by myself or my colleagues may have been "brought forward" into today's note. My signature on this note, however, is an attestation that I personally performed the exam, history, and/or decision-making noted today, and, unless otherwise indicated, the interactions with patient, family, and staff as well as the review of records all occurred today. I also attest that the listed assessment and stated plan reflect my best clinical judgment today based on the combination of historical information, prior notes, and today's exam/ interactions. When time spent is documented, it refers only to time spent today by the signer, or if indicated, combined time spent today by collaborating physician/nurse practitioner. SACHI CARDONA Mar 15, 2016 15:07
[2016-03-15] MEDS: PRAVASTATIN SOD 40 MG TAB PO SCH (21:20)
[2016-03-16] VITALS: BP 125/87; PULSE 84; RESP 20; TEMP 98.3; O2SAT 96
[2016-03-16] MEDS: LACTATED RINGER'S 1000 ML IV SCH (01:45)
[2016-03-16 04:00] VITALS: BP 127/81; PULSE 81; RESP 18; TEMP 97.2; O2SAT 96
[2016-03-16 05:24] LABS: INTERNATIONAL NORMALIZED RATIO 1.1 RATIO; PROTHROMBIN TIME - PATIENT 12.7 SEC (9.8-11.6)
[2016-03-16] MEDS: SUCRALFATE 1 GM/10 ML CUP PO SCH ×4 (05:33→20:30)
[2016-03-16] MEDS: LEVOTHYROXINE SODIUM 50 MCG TAB PO SCH (05:33)
[2016-03-16] MEDS: ERYTHROMYCIN EC 250 MG TABEC PO SCH ×3 (05:33→20:31)
[2016-03-16] MEDS: INSULIN ASPART SUPPLEMENTAL SCALE SQ SCH ×4 (05:41→20:33)
[2016-03-16 08:00] VITALS: BP 149/87; PULSE 68; RESP 17; TEMP 96.6; O2SAT 94
--- NOTE | 2016-03-16 08:29 | HHI.PR ---
Subjective Remarks epigastric pain- "comes and goes and does not last long enough" she is undecided and wants to talk about her options- chemo , surgery etc she used to see Dr. Arroyo in the past pathology back- invasive poorly differentiated adenocarcinoma Objective Vitals Vital Signs Date Time Temp Pulse Resp B/P Pulse Ox O2 Delivery O2 Flow Rate FiO2 03/16/16 04:00 97.2 81 18 127/81 96 03/16/16 00:00 98.3 84 20 125/87 96 03/15/16 20:00 96.5 92 20 137/73 98 03/15/16 16:00 97.6 77 18 132/84 100 03/15/16 12:00 98.4 69 17 113/70 96 03/15/16 09:19 97 21 I/O 03/15/16 03/15/16 03/15/16 03/16/16 03/16/16 03/16/16 07:00 15:00 23:00 07:00 15:00 23:00 Intake Total 240 ml 200 ml 320 ml 320 ml Output Total 250 ml Balance -10 ml 200 ml 320 ml 320 ml Intake Oral 240 ml 200 ml 320 ml 320 ml IV Total 0 ml Output Urine Total 250 ml # Voids 2 3 2 3 # Bowel Movements 0 0 0 0 Result Diagram: 03/14/16 0418 03/14/16 0418 Imaging Last Impressions Lower Extremity Ultrasound 03/12/16 0000 Signed Impressions: Service Date/Time: Saturday, March 12, 2016 14:41 - CONCLUSION: 1. No DVT identified within either lower extremity. 2. Small Doan's cyst within the popliteal fossa bilaterally. Cole Mondragon MD Chest X-Ray 03/09/16 141 Signed Impressions: Service Date/Time: Wednesday, March 09, 2016 14:40 - CONCLUSION: 1. Small left pleural effusion. 2. Cardiomegaly. 3. Degenerative changes and scoliosis of the thoracolumbar spine. Ervin Lilly MD Abdomen/Pelvis CT 03/09/161413 Signed Impressions: Service Date/Time: Wednesday, March 09, 2016 15:26 - CONCLUSION: 1. Chronic moderate to severe hydronephrosis bilaterally of indeterminate etiology. 2. Mild diffuse urinary bladder wall thickening. 3. Uncomplicated sigmoid diverticulosis. 4. Minimal prominence of the extrahepatic and central intrahepatic biliary system. Correlation with alkaline phosphatase and bilirubin levels is suggested to rule out biliary obstruction. 5. Small to moderate sized left pleural effusion and tiny right pleural effusion. 4. Cardiomegaly. 5. Atelectasis within the lingula of the left upper lobe. 6. Degenerative changes and scoliosis of the thoracolumbar spine. Ervin Lilly MD Objective Remarks GENERAL: not in distress, a x o x 3 SKIN: Warm and dry. HEAD: Normocephalic. EYES: No scleral icterus. No injection or drainage. NECK: Supple, trachea midline. No JVD or lymphadenopathy. CARDIOVASCULAR: irregular rhythm, on telemetry- mostly paced 90% RESPIRATORY: decreased breath sounds, no rales, No accessory muscle use. GASTROINTESTINAL: Abdomen soft, non-tender,good bowel sounds MUSCULOSKELETAL: No cyanosis, + edema, left leg slightly larger skin with multiple nevus motor equal on all extremities, gait stable Procedures 03/14- EGD- esophagitis with gastric mass A/P Assessment and Plan 89-year-old female with past medical history of HTN, HLD, DM, A. fib, GERD, PE, hypothyroidism, CHF, h/o gastric CA who presented with abdominal pain Chest pain - resolved history of atrial fibrillation telemetry paced History of CHF not in exacerbation Pt had a recent negative stress test. 2D ECHO shows EF of 40-45 % PM checked - functioning on BB- - Toprol-- Dr. Osorio ff restarted Lovenox start Low dose Lasix and monitor- Lasix 20 mg po daily S/P EGD- invasive poorly differentiated adenocarcinoma History of gastric cancer with gastric surgeries/resection in the past now states she wants to know all her options initially days before states she would want surgery if needed but no radiation or chemotherapy- continue on PPI seen by GS- and would agree to surgery if warranted Oncology consult Hypokalemia 2/2 poor PO intake. Replace and monitor. Eating better. advise small meals Left leg wound present on admission. Change dressing daily: single layer xeroform and dry cover daily.Discussed with wound care nurse. Acute kidney injury: Creatinine 1.3, previously 1.04 on 02/05/16. Patient appears volume overloaded on exam, possibly a cardiorenal component. Hydronephrosis: Abdominal CT showed "chronic moderate to severe hydronephrosis bilaterally of undetermined etiology". UA unremarkable. Monitor urine output. Has a good UOP. Confusion: - resolved . she is very interactive. loves to talk. a x ox x3 Psychiatry appreciated. Diabetes mellitus: Hold home metformin. SSI with Accu-Cheks. Chronic anticoagulation: Secondary to atrial fibrillation and history of DVT/ PE. INR subtherapeutic, continue Coumadin and consult pharmacy for dosing. Anemia: macrocytic. Will check B12, folate, iron panel, ferritin normal. Vit D is 23. Other chronic medical conditions include HLD, GERD, hypothyroidism: appreciate Palliative care- to determine goals of care- patient states "I don' t know what to do, let me talk to everyone- I had Dr. Arroyo before" 03/14- Discussed with the patient, nurse, son at bedside.- agreed with palliative care consult depending on discussion with palliative care and pathology- oncology consult or GS consult for evaluation Jeremiah aPyne MD Mar 16, 2016 08:28 Jeremiah Payne MD Mar 16, 2016 08:28
[2016-03-16] MEDS: DOCUSATE SODIUM 50 MG/SENNA 8.6 MG TAB PO SCH ×2 (08:41→20:31)
[2016-03-16] MEDS: GABAPENTIN 300 MG CAP PO SCH ×2 (08:41→20:31)
[2016-03-16] MEDS: POTASSIUM CL 40 MEQ/30 ML LIQ UDC PO SCH (08:41)
[2016-03-16] MEDS: POLYETHYLENE GLYCOL 17 GM PKG PO SCH (08:43)
[2016-03-16] MEDS: MULTIVITAMINS/MINERALS THERAPEUTIC TAB PO SCH (08:43)
[2016-03-16] MEDS: TOLTERODINE TARTRATE 2 MG CAP LA PO SCH (08:43)
[2016-03-16] MEDS: PANTOPRAZOLE SOD 40 MG DELAYED RELEASE TAB PO SCH ×2 (08:43→20:31)
[2016-03-16] MEDS: METOPROLOL SUCCINATE 50 MG EXTENDED RELEASE TAB PO SCH (08:43)
[2016-03-16] MEDS: NYSTAT/DIPHENHY/LIDO MOUTHWASH (Adult) 120ML SWISH-SWAL SCH ×4 (08:45→20:32)
[2016-03-16] MEDS: ESTRADIOL 0.1 MG/GM VAG CREAM 42.5 GM VAGINAL SCH ×2 (08:45→20:32)
[2016-03-16] MEDS: ENOXAPARIN SODIUM 80 MG/0.8 ML SYRINGE SQ SCH (08:49)
[2016-03-16 09:56] LABS: AUTOMATED NEUTROPHIL # 0.9 TH/MM3 (1.8-7.7); BASOPHIL % 0.8 % (0.0-2.0); EOSINOPHIL % 0.6 % (0.0-4.0); HEMATOCRIT 27.9 % (35.0-46.0); LYMPH % 43.7 % (9.0-44.0); LYMPHOCYTE # 1.1 TH/MM3 (1.0-4.8); MONO % 20.4 % (0.0-8.0); NEUT % 34.5 % (16.0-70.0); PLATELET COUNT 219 TH/MM3 (150-450); RED BLOOD COUNT 2.64 MIL/MM3 (4.00-5.30); WHITE BLOOD COUNT 2.5 TH/MM3 (4.0-11.0)
[2016-03-16 09:59] LABS: HEMO FLAGS AUTO DIFF
[2016-03-16 10:13] LABS: BICARBONATE 28.6 MEQ/L (21.0-32.0); POTASSIUM 3.6 MEQ/L (3.5-5.1)
[2016-03-16 10:29] LABS: BANDS 6 % (0-6); CORRECTED NUCLEATED RBC 1 /100 WBC (0-0); NEUTROPHIL # MANUAL DIFF 0.9 TH/MM3 (1.8-7.7); POLYS (SEG NEUTROPHILS) 28 % (16-70); WBC DIFF SAMPLE 100
[2016-03-16 10:30] LABS: KERATOCYTES OCC (NORMAL); OVALOCYTES 2+ (NORMAL); PLATELET ESTIMATE SMEAR NORMAL (NORMAL); PLATELET MORPHOLOGY NORMAL (NORMAL); SCAN/DIFF FINAL DIFF MANUAL
--- NOTE | 2016-03-16 11:00 | MB ---
cc: MATTHIEU WILLIAMSON MD Corrected Copy: 05/29/16 DATE OF CONSULTATION: 03/15/2016 REASON FOR CONSULTATION Gastric mass, history of gastric cancer. HISTORY OF PRESENT ILLNESS The patient is an 89-year-old female with multiple medical issues who initially presented with dysphagia and abdominal pain on 03/09/2016. She had the finding of a gastric mass on EGD and surgery was consulted for further evaluation. The patient is known to the surgical service due to a diagnosis of gastric cancer initially treated in 2003 with a Billroth II resection. She had developed a recurrence in 2013 for which she underwent a Billroth II to Javan-en-Y gastrectomy. She had been doing relatively well and living somewhat independently however she had begun to develop progressive dysphagia. The patient is a poor historian, some of the history obtained through family members and notes. It appears that the patient was seen at [facility] for workup of UTI and similar complaints; however, the patient did end up leaving and came to [place] for further workup and evaluation. The patient does note that along with family members she had been getting progressively worse and complaining of some pain upon eating. Further, the patient noted to go into arrhythmia following several meals. Further, the patient has been significantly anemic and complained of some black tarry stools as well. The patient denied any vomiting, again noted decreased p.o. intake. She was evaluated and has been treated and has undergone endoscopy with findings of a gastric mass in the gastric body at the staple line. This has been biopsied and pathology reports came back today showing a poorly differentiated adenocarcinoma. The patient is currently a DNR status. PAST MEDICAL HISTORY 1. Hypertension. 2. Hyperlipidemia. 3. Diabetes. 4. Atrial fibrillation, on Coumadin. 5. PE. 6. DVT. 7. History of reflux. 8. Hypothyroidism. 9. Gastric cancer as above. 10. Chronic anemia. 10. CHF diastolic. 11. Stress incontinence. PAST SURGICAL HISTORY 1. Gastric cancer Billroth II 2003. 2. Gastric cancer resection 2013. 3. Billroth II conversion to Javan-En-Y gastrectomy. 4. Hysterectomy. 5. Cholecystectomy. 6. Pacemaker placement. MEDICATIONS 1. Simvastatin. 2. Fish oil. 3. Theragran. 4. Toprol. 5. Metformin. 6. Gabapentin. 7. Alpha E. 8. Potassium. 9. Synthroid. 10. D3. 11. Coumadin. 12. Vesicare. 13. Tramadol. 14. Lasix. 15. Hydrochlorothiazide. 16. Jose Luis-Tab. ALLERGIES ASPIRIN, CELEBREX, SULFA. FAMILY HISTORY Significant for HTN and rheumatoid arthritis. SOCIAL HISTORY Occasional ETOH. Denies smoking and IVDA. Lives in an independent facility. REVIEW OF SYSTEMS GENERAL: The patient is a poor historian. HEENT: Denies eye pain or ear pain. CARDIOVASCULAR: Complained of irregular heart rate, palpitation. RESPIRATORY: Denies cough or shortness of breath. GASTROINTESTINAL: Complains of mild nausea, decreased p.o. intake, abdominal pain, MUSCULOSKELETAL: Denies arthralgias currently or myalgias. History of DVT. NEUROLOGIC: Denies numbness or tingling. PSYCHIATRIC: Some altered mental status. Fair judgment. GENITOURINARY: Complains of dysuria. Denies hematuria. INTEGUMENTARY: Denies lesions or masses. HEMATOLOGIC: Anemic, melena. PHYSICAL EXAMINATION GENERAL: The patient in no acute distress. HEENT: PERRLA. Pupils equal. NECK: Supple. Trachea midline. HEART: Irregular, irregular. S1, S2. No murmur. LUNGS: Bilateral expansion. Bilateral crackles. ABDOMEN: Soft, mild tenderness to palpation, no rebound. Healed surgical scars. MUSCULOSKELETAL: A left lower extremity compression dressing. 2+ pulses all extremities. NEUROLOGIC: Awake, alert, answering questions intermittently, moving extremities. PSYCHIATRIC: Confusion. LABORATORY DIAGNOSTIC DATA WBC is 3.3, hemoglobin 9.6, hematocrit 27.9, platelets 214. Sodium 141, potassium 4, chloride 104, CO2 27, BUN 32, creatinine 1.3, glucose 83. INR 1.1, PT 12.7. IMAGING Imaging reviewed by myself. Severe bilateral hydronephrosis. Bladder wall thickening. Sigmoid diverticulosis. Left small pleural effusion. Cardiomegaly. ASSESSMENT An 89-year-old female with multiple medical issues, poorly differentiated adenocarcinoma of the recurrence of gastric cancer. PLAN After full radiologic, laboratory and clinical workup, a full discussion in detail with the patient and family at bedside and palliative care. Discussed with both the family and patient the severity of the situation and the fact that the patient does have a recurrence in gastric cancer and it is also poorly differentiated which means a very aggressive cancer and poor prognosis. I did discuss that the patient may have several treatment options however surgery is not likely one of them. I did state I would discuss it with the team in a multidisciplinary approach to evaluate further these options. I did recommend that the patient would likely have more benefit from a potential nonoperative approach and palliative care measures only. However, again I did state we will continue the workup and further discuss other potential options. The patient may benefit from a PET scan to evaluate for any potential metastatic disease or to see if this is an isolated single recurrence. The patient is currently a DNR status and the family is very involved and appears to understand the gravity of the situation. Further discussion in regards to severity of dysphagia and potential for feeding access, if the patient is not able to tolerate p.o. diet, could consider a Dobbhoff versus a possible surgical feeding tube. We will continue to follow along with you and defer primary medical management of multiple comorbidities to primary team. MD KYLE Kyle/RUBIO /6:35 AM /10:08 AM MTDAlexx
[2016-03-16 12:00] VITALS: BP 112/73; PULSE 84; RESP 18; TEMP 97.1; O2SAT 97
--- NOTE | 2016-03-16 12:02 | HHI.PR ---
Subjective Subjective Notes DAILY PROGRESS NOTE FOR SURGICAL ATTENDING, DR. ESDRAS BRONSON Objective Vitals/I&O Vital Signs Date Time Temp Pulse Resp B/P Pulse Ox O2 Delivery O2 Flow Rate FiO2 03/16/16 08:00 96.6 68 17 149/87 94 03/15/16 09:19 21 Labs Laboratory Tests Test 03/16/16 03/16/16 04:49 09:14 Prothrombin Time 12.7 Prothromb Time International 1.1 Ratio White Blood Count 2.5 Red Blood Count 2.64 Hemoglobin 9.5 Hematocrit 27.9 Mean Corpuscular Volume 106.0 Mean Corpuscular Hemoglobin 36.0 Mean Corpuscular Hemoglobin 34.0 Concent Red Cell Distribution Width 17.0 Platelet Count 219 Mean Platelet Volume 9.6 Neutrophils (%) (Auto) 34.5 Lymphocytes (%) (Auto) 43.7 Monocytes (%) (Auto) 20.4 Eosinophils (%) (Auto) 0.6 Basophils (%) (Auto) 0.8 Neutrophils # (Auto) 0.9 Lymphocytes # (Auto) 1.1 Monocytes # (Auto) 0.5 Eosinophils # (Auto) 0.0 Basophils # (Auto) 0.0 CBC Comment AUTO DIFF Differential Total Cells 100 Counted Neutrophils % (Manual) 28 Band Neutrophils % 6 Lymphocytes % 47 Monocytes % 19 Neutrophils # (Manual) 0.9 Nucleated Red Blood Cells 1 Differential Comment FINAL DIFF MANUAL Platelet Estimate NORMAL Platelet Morphology Comment NORMAL Ovalocytes 2+ Keratocytes OCC Sodium Level 142 Potassium Level 3.6 Chloride Level 105 Carbon Dioxide Level 28.6 Anion Gap 8 Blood Urea Nitrogen 31 Creatinine 1.29 Estimat Glomerular Filtration 39 Rate Random Glucose 110 Calcium Level 8.1 B-Type Natriuretic Peptide 674 Radiology Last Impressions Lower Extremity Ultrasound 03/12/16 0000 Signed Impressions: Service Date/Time: Saturday, March 12, 2016 14:41 - CONCLUSION: 1. No DVT identified within either lower extremity. 2. Small Doan's cyst within the popliteal fossa bilaterally. Cole Mondragon MD Chest X-Ray 03/09/16 1414 Signed Impressions: Service Date/Time: Wednesday, March 09, 2016 14:40 - CONCLUSION: 1. Small left pleural effusion. 2. Cardiomegaly. 3. Degenerative changes and scoliosis of the thoracolumbar spine. Ervin Lilly MD Abdomen/Pelvis CT 03/09/16 1414 Signed Impressions: Service Date/Time: Wednesday, March 09, 2016 15:26 - CONCLUSION: 1. Chronic moderate to severe hydronephrosis bilaterally of indeterminate etiology. 2. Mild diffuse urinary bladder wall thickening. 3. Uncomplicated sigmoid diverticulosis. 4. Minimal prominence of the extrahepatic and central intrahepatic biliary system. Correlation with alkaline phosphatase and bilirubin levels is suggested to rule out biliary obstruction. 5. Small to moderate sized left pleural effusion and tiny right pleural effusion. 4. Cardiomegaly. 5. Atelectasis within the lingula of the left upper lobe. 6. Degenerative changes and scoliosis of the thoracolumbar spine. Ervin Lilly MD Cardiovascular: Irregular Abdomen: Non-tender, BS normal (having diarrhea) Extremities: Other (bilateral leg edema decreasing) A/P Problem List: (1) Diabetes (2) Hypertension (3) Paroxysmal atrial fibrillation (4) Afib (5) Hx of pulmonary embolus (6) History of radiation therapy (7) gastric cancer, recurrent (8) Hx Of Gastric Malignancy (9) DM (diabetes mellitus) Assessment and Plan 89-year-old female who had a gastric carcinoma 16 years ago with a recurrence 2 years ago now has her second recurrence. At this time with her multiple comorbidities I think she is a high surgical risk for any definitive therapy I discussed with her she's not sure what to do is to undergo surgery We'll follow and get cardiology input We'll get our surgical oncologist Dr. Carlos stein to review the case as well Esdras Bronson MD Mar 16, 2016 12:01
[2016-03-16] MEDS: FUROSEMIDE 20 MG TAB PO SCH (13:17)
[2016-03-16] MEDS: SODIUM CHLORIDE 0.9% FLUSH 5 ML FLUSH FLUSH SCH ×2 (13:23→20:38)
--- NOTE | 2016-03-16 14:20 | MB ---
cc: KANDI RUFFIN ROXY DATE OF CONSULTATION: 03/16/2016. REASON FOR CONSULTATION: Recurrent adenocarcinoma of the stomach in a frail 89-year-old female with multiple comorbidities. PATIENT PROFILE: The patient is an 89-year white female. She has been since 1971. She was born in [place]. She has lived in [place] since approximately 1960. She has four sons and indicates that two live locally. She lives alone in [facility]. She is not able to drive. She is a retired registered nurse. She has never smoked. She has a history of minimal alcohol intake. HISTORY OF PRESENT ILLNESS The patient is an 89-year female whose history dates back to 06/01/2003 when she had a partial gastrectomy performed for a poorly differentiated adenocarcinoma of the stomach. The tumor measured 5.5 cm. It was a pathologic T2b NX M0 lesion. This surgery was performed by Dr. Gurpreet Holloway. She developed recurrence near the surgical site and had a second surgery on 10/27/[address] Bronson, which was a partial gastrectomy and again showed invasive poorly differentiated adenocarcinoma, estimated tumor size 4 cm, grade 3. There were 2 of 3 perigastric lymph nodes positive for tumor. The final stage was T2 N1 M0. The surgical margins were negative. She is not a good historian, and as much as I can tell, she has not felt well recently. There has occasional upper abdominal pain. She has had a chronic anemia. She had an upper endoscopy on 03/14/2016 and was found to have esophagitis, a Billroth II anastomosis and a mass measuring 2 cm in the gastric body. 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 On 03/09/2016, the patient had a CT abdomen, and pelvis with IV contrast, which shows chronic moderate to severe hydronephrosis bilaterally of indeterminate etiology, mild diffuse bladder wall thickening, uncomplicated sigmoid diverticulosis, small to moderate-sized left pleural effusion and small right pleural effusion and cardiomegaly. There was no visible gastric cancer on the CT scan of the abdomen and pelvis. A chest x-ray 03/09/2016 shows a small left pleural effusion and cardiomegaly. She has an elevated BNP of 674 on 03/16/2016. She has significant comorbidities and echocardiogram on 03/11/2016 shows an estimated ejection fraction in the range of 40% to 45%. She feels that there has been a deterioration in health. She does not have as much energy. She has occasional upper abdominal pain. She has to eat small meals. PAST SURGICAL HISTORY: 1. 06/02/2003, antrectomy with Billroth II gastrojejunostomy for adenocarcinoma of the stomach T2b NX M0. 2. Resection of residual stomach for recurrence near suture site performed by Dr. Alfonso Bronson on 11/02/2013 consisting of exploratory laparotomy and conversion of the Billroth II into a Javan-en-Y with subtotal gastrectomy. 3. Hysterectomy. 4. Cholecystectomy. 5. Pacemaker placement left upper chest by Dr. Day, lay out worker. 6. Benign breast biopsy. PAST MEDICAL HISTORY: 1. Hypertension. 2. Hyperlipidemia. 3. Diabetes. 4. Atrial fibrillation. 5. DVT left leg. 6. Pulmonary emboli. 7. GI reflux. 8. Hypothyroidism. 9. Two gastric cancers as described above. 10. Chronic anemia. 11. Congestive heart failure. 12. Stress incontinence. MEDICATIONS: Medications prior to admission: 1. Vitamin D3. 2. Erythromycin. 3. Estradiol. 4. Neurontin. 5. Levothyroxine. 6. Metformin. 7. Metoprolol. 8. Potassium. 9. Simvastatin. 10. Vesicare. 11. Tramadol. 12. Vitamin E. 13. Coumadin. ALLERGIES: 1. ASPIRIN. 2. CELEBREX. 3. SULFA. FAMILY HISTORY: Mother at age 94 of old age. Father of cirrhosis and the patient had a brother who in his 50s of complications of alcoholism. REVIEW OF SYSTEMS: VISION: She has glasses. HEARING: She has one hearing aids. LYMPHATIC: No lymphadenopathy. CARDIAC: She has significant exertional shortness of breath and peripheral edema. RESPIRATORY: Exertional shortness of breath. GI: Occasional upper abdominal pain. She will occasionally bring up food when belching and vomit. If she east too rapidly, she has upper abdominal pain. She is unsure if there is been weight loss. : Incontinence. MUSCULOSKELETAL: Some generalized aches and pains but nothing specific. NEUROLOGIC: Generalized weakness but not focal weakness. SKIN: Unremarkable. LABORATORY FINDINGS: Hemoglobin 9.5, white count 2500 and platelets of 219,000. Differential is 28% neutrophils, 47% lymphocytes, 19% monocytes and 1 nucleated red cell. Lytes, BUN, creatinine notable for a BUN of 31, creatinine 1.29. Her BNP is 674. appears frail and mildly forgetful B.P. 62334 RR 20 pulse 80 , Afebrile HEENT: absent teeth Lymphatics: no adenopathy Breasts: no masses Chest Wall: pacemaker left upper chest Cardiovascular: Heart irreg rhythm, rate 80, 1/6 cinthia lungs: decreased sounds at bases ABD: no enlargement of liver or spleen. no masses or tenderness Extrem: +2 edeam Skin: intact Neuro: no focal weakness, short term memory poor Psychiatric: understands conversation. ASSESSMENT: The patient is an 89-year female. She has a second recurrence of a gastric cancer. Her first surgery dates back to 06/01/2003 and was a pathologic T2b NX adenocarcinoma poorly differentiated. Her second surgery was October 27, 2013, and was a local recurrence measuring 4 cm T2 N1. She now has a third recurrence. She has significant comorbidities. She appears to have chronic congestive heart failure. She has atrial fibrillation, a pacemaker, chronic anemia, diabetes, hyperlipidemia, and hypertension. She is struggling with issues with memory. PLAN: 1. I spoke with Dr. Bronson an hour ago. The patient is a poor candidate for surgery. He is going to discuss this with one of the other surgeons, Dr. Hurd. 2. If she is not felt to be a candidate for surgery, I would recommend that radiation be considered, as the lesion is fairly small. Before doing radiation , I would strongly recommend that she have a PET scan as at her last presentation she had involvement of lymph nodes and it would not be unlikely that she has metastatic disease. If she has metastatic disease, then I would recommend hospice. If she does not have metastatic disease and is not a surgical candidate, then radiation would be reasonable. It may turn laster to be palliative but all of her surgeries probably will end up being palliative. If she chooses not to have any intervention I would recommend hospice. I would avoid anticoagulation given the risk of bleeding. This was discussed with her in detail. MD CAROL Castillo/COLIN /12:52 PM /1:58 PM LIVIA
[2016-03-16] MEDS: traMADol HCL 50 MG TAB PO PRN (14:59)
[2016-03-16] MEDS: ONDANSETRON HCL 4 MG/2 ML VIAL IVP PRN ×2 (15:13→23:37)
[2016-03-16 16:00] VITALS: BP 149/82; PULSE 82; RESP 17; TEMP 96; O2SAT 100
[2016-03-16 20:00] VITALS: BP 120/76; PULSE 78; RESP 20; TEMP 96.4; O2SAT 98
[2016-03-16] MEDS: PRAVASTATIN SOD 40 MG TAB PO SCH (20:31)
[2016-03-17] VITALS (9 sets, daily range): BP systolic 97–144; BP diastolic 56–98; PULSE 75–108; RESP 16–20; TEMP 96–98.6; O2SAT 92–98
[2016-03-17] MEDS: LACTATED RINGER'S 1000 ML IV SCH (01:45)
[2016-03-17] MEDS: traMADol HCL 50 MG TAB PO PRN (03:15)
[2016-03-17] MEDS ORDERED: METOCLOPRAMIDE HCL 10 MG/2 ML VIAL IV PUSH ONE (03:30)
[2016-03-17] MEDS ORDERED: MORPHINE SULFATE 4 MG/ML INJ IV PUSH PRN (05:00)
[2016-03-17 05:20] LABS: INTERNATIONAL NORMALIZED RATIO 1.2 RATIO; PROTHROMBIN TIME - PATIENT 12.9 SEC (9.8-11.6)
[2016-03-17] MEDS: INSULIN ASPART SUPPLEMENTAL SCALE SQ SCH ×4 (05:47→20:40)
[2016-03-17] MEDS: ERYTHROMYCIN EC 250 MG TABEC PO SCH ×3 (05:47→20:39)
[2016-03-17] MEDS: SUCRALFATE 1 GM/10 ML CUP PO SCH ×4 (05:47→20:39)
[2016-03-17] MEDS: LEVOTHYROXINE SODIUM 50 MCG TAB PO SCH (05:47)
[2016-03-17] MEDS: SODIUM CHLORIDE 0.9% FLUSH 5 ML FLUSH FLUSH SCH ×2 (07:57→20:40)
[2016-03-17] MEDS: DOCUSATE SODIUM 50 MG/SENNA 8.6 MG TAB PO SCH ×2 (07:57→20:39)
[2016-03-17] MEDS: ONDANSETRON HCL 4 MG/2 ML VIAL IVP PRN ×2 (07:57→08:04)
[2016-03-17] MEDS: METOPROLOL SUCCINATE 50 MG EXTENDED RELEASE TAB PO SCH (07:58)
[2016-03-17] MEDS: MULTIVITAMINS/MINERALS THERAPEUTIC TAB PO SCH (07:58)
[2016-03-17] MEDS: FUROSEMIDE 20 MG TAB PO SCH (08:03)
[2016-03-17] MEDS: POTASSIUM CL 40 MEQ/30 ML LIQ UDC PO SCH (08:03)
[2016-03-17] MEDS: ESTRADIOL 0.1 MG/GM VAG CREAM 42.5 GM VAGINAL SCH ×2 (08:06→20:41)
[2016-03-17] MEDS: TOLTERODINE TARTRATE 2 MG CAP LA PO SCH (08:07)
[2016-03-17] MEDS: POLYETHYLENE GLYCOL 17 GM PKG PO SCH (08:08)
[2016-03-17] MEDS: GABAPENTIN 300 MG CAP PO SCH ×2 (08:08→20:39)
[2016-03-17] MEDS: PANTOPRAZOLE SOD 40 MG DELAYED RELEASE TAB PO SCH ×2 (08:09→20:39)
[2016-03-17] MEDS: NYSTAT/DIPHENHY/LIDO MOUTHWASH (Adult) 120ML SWISH-SWAL SCH ×4 (08:09→20:41)
--- NOTE | 2016-03-17 09:25 | HHI.PR ---
Subjective Remarks states last night with severe abdominal pain and dry heaves still with discomfort this am- states + flatus Objective Vitals Vital Signs Date Time Temp Pulse Resp B/P Pulse Ox O2 Delivery O2 Flow Rate FiO2 03/17/16 08:00 96.8 84 16 143/92 92 03/17/16 00:00 98.4 83 20 125/74 95 03/16/16 20:00 96.4 78 20 120/76 98 03/16/16 16:00 96.0 82 17 149/82 100 03/16/16 12:00 97.1 84 18 112/73 97 I/O 03/16/16 03/16/16 03/16/16 03/17/16 03/17/16 03/17/16 07:00 15:00 23:00 07:00 15:00 23:00 Intake Total 320 ml 960 ml 240 ml 0 ml Balance 320 ml 960 ml 240 ml 0 ml Intake Oral 320 ml 960 ml 240 ml 0 ml IV Total 0 ml 0 ml # Voids 3 4 4 2 # Bowel Movements 0 2 Result Diagram: 03/16/16 0914 03/16/16 0914 Imaging Last Impressions Lower Extremity Ultrasound 03/12/16 0000 Signed Impressions: Service Date/Time: Saturday, March 12, 2016 14:41 - CONCLUSION: 1. No DVT identified within either lower extremity. 2. Small Doan's cyst within the popliteal fossa bilaterally. Cole Mondragon MD Chest X-Ray 03/09/16 1414 Signed Impressions: Service Date/Time: Wednesday, March 09, 2016 14:40 - CONCLUSION: 1. Small left pleural effusion. 2. Cardiomegaly. 3. Degenerative changes and scoliosis of the thoracolumbar spine. Ervin Lilly MD Abdomen/Pelvis CT 03/09/16 1414 Signed Impressions: Service Date/Time: Wednesday, March 09, 2016 15:26 - CONCLUSION: 1. Chronic moderate to severe hydronephrosis bilaterally of indeterminate etiology. 2. Mild diffuse urinary bladder wall thickening. 3. Uncomplicated sigmoid diverticulosis. 4. Minimal prominence of the extrahepatic and central intrahepatic biliary system. Correlation with alkaline phosphatase and bilirubin levels is suggested to rule out biliary obstruction. 5. Small to moderate sized left pleural effusion and tiny right pleural effusion. 4. Cardiomegaly. 5. Atelectasis within the lingula of the left upper lobe. 6. Degenerative changes and scoliosis of the thoracolumbar spine. Ervin Lilly MD Objective Remarks GENERAL: not in distress, a x o x 3 SKIN: Warm and dry. HEAD: Normocephalic. EYES: No scleral icterus. No injection or drainage. NECK: Supple, trachea midline. No JVD or lymphadenopathy. CARDIOVASCULAR: irregular rhythm, on telemetry- occasionally paced RESPIRATORY: decreased breath sousnds bases, no rales, No accessory muscle use. GASTROINTESTINAL: abdomen distended, ew bowel sounds, tenderness on deep palpation of epigastric and left upper quadrant MUSCULOSKELETAL: No cyanosis, + edema skin with multiple nevus Procedures 03/14- EGD- esophagitis with gastric mass A/P Assessment and Plan 89-year-old female with past medical history of HTN, HLD, DM, A. fib, GERD, PE, hypothyroidism, CHF, h/o gastric CA who presented with abdominal pain S/P EGD- Esophagitis with gastric mass- biopsy invasive adenocarcinoma 03/14- increasing abdominal pain, nausea, dry heaves overnight History of gastric cancer with gastric surgeries/resection in the past get KUB now - r/o obstruction or ileus seen by Oncology and General surgery continue on PPI prn IV pain meds NGT if shows obstruction/vomiting- will inform GI- d/w SN Chest pain - no further episodes history of atrial fibrillation Pt had a recent negative stress test. 2D ECHO shows EF of 40-45 % PM checked - functioning on BB-- per [facility] recommendation- avopid anticoagulation with risk of bleeding will DC lovenox Hypokalemia 2/2 poor PO intake. Replace and monitor. Eating better. advise small meals - BMP Left leg wound present on admission. Change dressing daily: single layer xeroform and dry cover daily.Discussed with wound care nurse. Bilateral LE edema; - negative for DVT Patient has a h/o LE DVT - Lasix to 20 mg IV q 12 Hydronephrosis: Abdominal CT showed "chronic moderate to severe hydronephrosis bilaterally of undetermined etiology". UA unremarkable. Monitor urine output. Has a good UOP. Confusion: - resolved . she is very interactive. loves to talk. a x ox x3 Psychiatry appreciated. Hypokalemia: Potassium 2.5 on admission . Replace IV and orally. Follow-up BMP. Will DC IVF NS. Acute kidney injury: Creatinine 1.3, previously 1.04 on 02/05/16. now with LE edema Lasix - IV monitor renal functions Diabetes mellitus: Hold home metformin. SSI with Accu-Cheks. Chronic anticoagulation: Secondary to atrial fibrillation and history of DVT/ PE. INR subtherapeutic, on Lovenox. Anemia: macrocytic. B12, folate, iron panel, ferritin normal. Other chronic medical conditions include HLD, GERD, hypothyroidism: seen by Palliative care- to determine goals of care prn IV pain meds I 03/14- Discussed with the patient, nurse, son at bedside.- agreed with palliative care consult Jeremiah Payne MD Mar 17, 2016 09:25 Jeremiah Payne MD Mar 17, 2016 09:25
--- NOTE | 2016-03-17 10:41 | RADRPT ---
EXAM DATE/TIME: 03/17/2016 10:10 [facility] COMPARISON: CT ABDOMEN & PELVIS W CONTRAST, March 09, 2016, 15:26. INDICATIONS : Abdominal. Known left effusion. MEDICAL HISTORY : Diabetes mellitus type 2. Hypertension. Gastric cancer. Thyroid disease. SURGICAL HISTORY : Hysterectomy. Pacemaker. Javan en Y. ENCOUNTER: Subsequent ACUITY: 2 weeks PAIN SCORE: 6/10 LOCATION: Abdomen. FINDINGS: Supine and upright views of the abdomen were performed. The abdominal bowel gas pattern is normal. No air fluid levels are seen. No abnormal masses, calcifications, or organomegaly is seen. The visu alized lower lungs are clear. No evidence of free intraperitoneal gas. The osseous structures are u nremarkable. The heart size is moderately enlarged. There is a left effusion. An AV sequential transv enous pacer is again noted. The patient is status post cholecystectomy. CONCLUSION: 1. Nonobstructive bowel gas pattern. 2. Left pleural effusion. Gurpreet Edwards MD on March 17, 2016 at 10:35 Board Certified Radiologist. This report was verified electronically.
[2016-03-17 11:52] LABS: BICARBONATE 27.3 MEQ/L (21.0-32.0); POTASSIUM 4.1 MEQ/L (3.5-5.1)
[2016-03-17] MEDS: FUROSEMIDE 20 MG/2 ML VIAL IV PUSH SCH (17:39)
[2016-03-17] MEDS: PRAVASTATIN SOD 40 MG TAB PO SCH (20:39)
[2016-03-18] VITALS (8 sets, daily range): BP systolic 96–134; BP diastolic 58–76; PULSE 70–88; RESP 16–19; TEMP 96.2–99.2; O2SAT 92–96
[2016-03-18] MEDS: LACTATED RINGER'S 1000 ML IV SCH (01:45)
[2016-03-18] MEDS: SUCRALFATE 1 GM/10 ML CUP PO SCH ×4 (05:20→20:23)
[2016-03-18] MEDS: LEVOTHYROXINE SODIUM 50 MCG TAB PO SCH (05:20)
[2016-03-18] MEDS: INSULIN ASPART SUPPLEMENTAL SCALE SQ SCH ×4 (05:20→20:24)
[2016-03-18] MEDS: ERYTHROMYCIN EC 250 MG TABEC PO SCH ×3 (05:20→20:24)
[2016-03-18 07:06] LABS: INTERNATIONAL NORMALIZED RATIO 1.2 RATIO; PROTHROMBIN TIME - PATIENT 13.1 SEC (9.8-11.6)
[2016-03-18] MEDS: POTASSIUM CL 40 MEQ/30 ML LIQ UDC PO SCH (08:57)
[2016-03-18] MEDS: METOPROLOL SUCCINATE 50 MG EXTENDED RELEASE TAB PO SCH (08:58)
[2016-03-18] MEDS: GABAPENTIN 300 MG CAP PO SCH ×2 (08:58→20:23)
[2016-03-18] MEDS: SODIUM CHLORIDE 0.9% FLUSH 5 ML FLUSH FLUSH SCH ×2 (08:58→20:24)
[2016-03-18] MEDS: TOLTERODINE TARTRATE 2 MG CAP LA PO SCH (08:58)
[2016-03-18] MEDS: PANTOPRAZOLE SOD 40 MG DELAYED RELEASE TAB PO SCH ×2 (08:58→20:24)
[2016-03-18] MEDS: FUROSEMIDE 20 MG/2 ML VIAL IV PUSH SCH (08:58)
[2016-03-18] MEDS: POLYETHYLENE GLYCOL 17 GM PKG PO SCH (09:00)
[2016-03-18] MEDS: DOCUSATE SODIUM 50 MG/SENNA 8.6 MG TAB PO SCH ×2 (09:00→20:23)
[2016-03-18] MEDS: NYSTAT/DIPHENHY/LIDO MOUTHWASH (Adult) 120ML SWISH-SWAL SCH ×4 (09:00→22:35)
[2016-03-18] MEDS: MULTIVITAMINS/MINERALS THERAPEUTIC TAB PO SCH (09:03)
[2016-03-18] MEDS: ESTRADIOL 0.1 MG/GM VAG CREAM 42.5 GM VAGINAL SCH ×2 (09:05→20:27)
--- NOTE | 2016-03-18 10:50 | HHI.PR ---
Subjective Remarks Follow for gastric cancer Patient slumped to the floor yesterday, but did not fall, did not hit her head. Quite sleepy but not confused. Denies any pain at all. Denies any chest pain or shortness of breath. Discussed with patient's son Solitario Objective Vitals Vital Signs Date Time Temp Pulse Resp B/P Pulse Ox O2 Delivery O2 Flow Rate FiO2 03/18/16 08:00 97.4 85 17 134/76 95 03/18/16 04:02 96.2 70 19 119/68 92 03/18/16 00:00 98.0 74 18 110/74 96 03/17/16 22:40 98.6 87 18 115/68 98 03/17/16 21:00 97.8 95 16 115/69 03/17/16 20:00 96.6 75 18 97/56 95 03/17/16 19:00 108 03/17/16 16:00 96.6 86 17 122/73 93 03/17/16 12:00 96.0 91 17 144/98 98 I/O 03/17/16 03/17/16 03/17/16 03/18/16 03/18/16 03/18/16 07:00 15:00 23:00 07:00 15:00 23:00 Intake Total 0 ml 362 ml 360 ml Balance 0 ml 362 ml 360 ml Intake Oral 0 ml 360 ml 360 ml IV Total 0 ml 2 ml # Voids 2 2 2 # Bowel Movements 0 0 Result Diagram: 03/16/16 0914 03/17/16 1059 Objective Remarks GENERAL: not in distress, a x o x 3 SKIN: Warm and dry. HEAD: Normocephalic. EYES: No scleral icterus. No injection or drainage. NECK: Supple, trachea midline. No JVD or lymphadenopathy. CARDIOVASCULAR: irregular rhythm, on telemetry RESPIRATORY: decreased breath sousnds bases, no rales, No accessory muscle use. GASTROINTESTINAL: abdomen distended, no tenderness MUSCULOSKELETAL: No cyanosis, + edema, mildly tender on palpation Sleepy but easily arousable, moves extremities. Procedures 03/14- EGD- esophagitis with gastric mass A/P Assessment and Plan 89-year-old female with past medical history of HTN, HLD, DM, A. fib, GERD, PE, hypothyroidism, CHF, h/o gastric CA who presented with abdominal pain Invasive adenocarcinoma-S/P EGD- Esophagitis with gastric mass- biopsy invasive adenocarcinoma 03/14- increasing abdominal pain, continue Zofran erythromycin. Seen by oncology, recommends radiation therapy, likely palliative but needs a PET scan first as outpatient. If PET scan does not show any metastatic disease , we'll go ahead with radiotherapy and possible chemotherapy. Seen by general surgery, no surgical options at this point. KUB from yesterday did not show any ileus. Continue Protonix, continue oral and intravenous narcotics as needed for pain. Will need Dobbhoff if not eating. Poor oral intake - start ensure, start Megace. Might need Dobbhoff if not eating. Chest pain - no further episodes history of atrial fibrillation Pt had a recent negative stress test. 2D ECHO shows EF of 40-45 % PM checked - functioning, continue metoprolol. Avoid anticoagulation per oncology. Coumadin on hold. Hypokalemia 2/2 poor PO intake. Replace and monitor. Eating better. advise small meals Acute renal failure-likely secondary to overdiuresis, stop Lasix, recheck BMP tomorrow. Start D5 half-normal saline. Left leg wound present on admission. Change dressing daily: single layer xeroform and dry cover daily.Discussed with wound care nurse. Bilateral LE edema; - negative for DVT, Patient has a h/o LE DVT, stop Lasix. Hydronephrosis: Abdominal CT showed "chronic moderate to severe hydronephrosis bilaterally of undetermined etiology". UA unremarkable. Monitor urine output. Has a good UOP. Confusion: - resolved . she is very interactive. loves to talk. a x ox x3, start Aricept and Namenda per psychiatry. Stop Compazine. Hypokalemia: Potassium 2.5 on admission . Resolved. Diabetes mellitus: Hold home metformin. SSI with Accu-Cheks. Chronic anticoagulation: Secondary to atrial fibrillation and history of DVT/ PE. Coumadin on hold as above. Anemia: macrocytic. B12, folate, iron panel, ferritin normal. Other chronic medical conditions include HLD, GERD, hypothyroidism: seen by Palliative care- to determine goals of care, patient DO NOT RESUSCITATE Discussed extensively with patient's son: They agree with doing PET scan as outpatient and then will take it from there. I spent 35 minutes [id number] with the patient and patient's son Solitario over the phone and on the marin discussing the patient's disposition, prognosis and plan of care with his/her caregivers. Over half of time spent was devoted to counseling the patient regarding discharge plans, goals of care and coordinating care with caregivers and case management. Patient will go back to [facility] to go with home healthcare. Consult case management. I DVT prophylaxis: SCDs Discharge tomorrow with home health care. Desire Cox MD Mar 18, 2016 10:50
--- NOTE | 2016-03-18 11:17 | HHI.PR ---
Subjective Subjective Notes eating better, pain better Objective Vitals/I&O Vital Signs Date Time Temp Pulse Resp B/P Pulse Ox O2 Delivery O2 Flow Rate FiO2 03/18/16 08:00 97.4 85 17 134/76 95 03/15/16 09:19 21 Labs Laboratory Tests Test 03/18/16 06:00 Prothrombin Time 13.1 Prothromb Time International 1.2 Ratio Radiology Last Impressions Lower Extremity Ultrasound 03/12/16 0000 Signed Impressions: Service Date/Time: Saturday, March 12, 2016 14:41 - CONCLUSION: 1. No DVT identified within either lower extremity. 2. Small Doan's cyst within the popliteal fossa bilaterally. Cole Mondragon MD Chest X-Ray 03/09/16 1414 Signed Impressions: Service Date/Time: Wednesday, March 09, 2016 14:40 - CONCLUSION: 1. Small left pleural effusion. 2. Cardiomegaly. 3. Degenerative changes and scoliosis of the thoracolumbar spine. Ervin Lilly MD Abdomen/Pelvis CT 03/09/161413 Signed Impressions: Service Date/Time: Wednesday, March 09, 2016 15:26 - CONCLUSION: 1. Chronic moderate to severe hydronephrosis bilaterally of indeterminate etiology. 2. Mild diffuse urinary bladder wall thickening. 3. Uncomplicated sigmoid diverticulosis. 4. Minimal prominence of the extrahepatic and central intrahepatic biliary system. Correlation with alkaline phosphatase and bilirubin levels is suggested to rule out biliary obstruction. 5. Small to moderate sized left pleural effusion and tiny right pleural effusion. 4. Cardiomegaly. 5. Atelectasis within the lingula of the left upper lobe. 6. Degenerative changes and scoliosis of the thoracolumbar spine. Ervin Lilly MD Abdomen: Non-distended, Non-tender A/P Problem List: (1) Diabetes (2) Hypertension (3) Paroxysmal atrial fibrillation (4) Afib (5) Hx of pulmonary embolus (6) History of radiation therapy (7) gastric cancer, recurrent (8) Hx Of Gastric Malignancy (9) DM (diabetes mellitus) Assessment and Plan 89yo female with hx of gastric cancer, recurrent. - recurrent gastric CA, no bleeding or obstruction, no indication for acute intervention - recommend outpatient workup, PET CT scan, consider EUS for staging - I do not recommend surgery, She has a very poor oncologic outcome with surgery and very high risk as well with poor QOL after (feeding tube, etc.), long d/w patient and son - agree with radiation +/- chemotherapy, palliation as well - ok to DC home from surgery standpoint Carlos Hurd MD Mar 18, 2016 11:17
--- NOTE | 2016-03-18 11:38 | HHI.FF ---
Face to Face Verification Diagnosis: (1) Hx Of Gastric Malignancy Physical Therapy Order: Evaluate and Treat Home Health Nursing Order: Medical education Signs/symptoms of disease process Oxygen administration education Nursing assessment with vital signs Home Health Aide Order: To Assist In: Bathing and personal care, core mounter and meal prep I have seen patient Alena Portillo on 03/18/16. My clinical findings support the need for the requested home health care services because: Ltd mobility - disease progression Deconditioned w/ increased weakness Limited ability to care for self I certify that my clinical findings support that this patient is homebound because: Post-op weakness Unsteady gait/balance Desire Cox MD Mar 18, 2016 11:38
[2016-03-18] MEDS: DONEPEZIL HCL 5 MG TAB PO SCH (12:20)
[2016-03-18] MEDS: DEXT 5%-NACL 0.45% 1000 ML INJ 1,000 ML IV SCH ×2 (12:27→22:36)
[2016-03-18] MEDS: MEGESTROL ACETATE 40 MG TAB PO SCH (12:55)
[2016-03-18] MEDS: MEMANTINE HCL 5 MG TAB PO SCH (12:57)
[2016-03-18] MEDS: PRAVASTATIN SOD 40 MG TAB PO SCH (20:24)
[2016-03-19] VITALS (7 sets, daily range): BP systolic 115–136; BP diastolic 65–72; PULSE 72–103; RESP 17–21; TEMP 97.9–99.2; O2SAT 91–98
[2016-03-19] MEDS: LACTATED RINGER'S 1000 ML IV SCH (01:45)
[2016-03-19 04:59] LABS: BICARBONATE 25.6 MEQ/L (21.0-32.0); POTASSIUM 4.3 MEQ/L (3.5-5.1)
[2016-03-19] MEDS: INSULIN ASPART SUPPLEMENTAL SCALE SQ SCH ×4 (05:42→21:44)
[2016-03-19] MEDS: LEVOTHYROXINE SODIUM 50 MCG TAB PO SCH (05:42)
[2016-03-19] MEDS: ERYTHROMYCIN EC 250 MG TABEC PO SCH ×3 (05:42→20:42)
[2016-03-19] MEDS: SUCRALFATE 1 GM/10 ML CUP PO SCH ×4 (05:42→20:42)
--- NOTE | 2016-03-19 05:59 | RC ---
cc: JAYE WAGNER THENDREX MD GAMENTHALER,AMANDA MORALES,JOSE ALEJANDRO NIETO,APPLE RUFFIN,LUL CENTENO M.D., MD,MATTHIEU Multani MD DATE OF SERVICE 03/18/2016 DIAGNOSIS Recurrent adenocarcinoma of the stomach. Stage unknown at the present time. CHIEF COMPLAINT Positive biopsy on endoscopy. REASON FOR VISIT The patient being evaluated for salvage radiotherapy treatment options. HISTORY OF PRESENT ILLNESS This is an 89-year-old white female who at the initial diagnosis of gastric carcinoma apparently diagnosed in May of 2003. Apparently she had a partial gastrectomy performed which showed a poorly-differentiated adenocarcinoma with a pathological stage T2b, apparently N0 M0. It appears that later she developed a recurrence in October of 2013 and had a second resection with partial gastrectomy by Dr. Bronson which again showed invasive well-differentiated adenocarcinoma and at that point there would two or three positive lymph nodes which was a T2 N1 M0, tumor size of 4 cm. It appears, according to the son since the patient is not a good historian as she has a mild dementia, that she was having problems with her kidneys and heart function, developed swelling of the lower extremities, was not feeling well overall and complaining of abdominal pain for which reason she was brought into the hospital and admitted. It appears that the patient had upper endoscopy on 03/14/2016 which she was noted on to have a mass measuring 2 cm in the gastric body. 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 The patient has been evaluated by Dr. Ruffin. Dr. Ruffin has stated that the patient is not a good candidate for aggressive treatment. The patient has been evaluated also by Dr. Hurd and surgery has not been recommended. Dr. Ruffin has placed a consult for me to evaluate the patient for possible salvage/palliative radiotherapy to the gastric area if the patient has localized disease. Son was present during the physical examination and discussion. PAST MEDICAL HISTORY 1. As above. 2. Also history of hypertension. 3. Hyperlipidemia. 4. Diabetes. 5. A-fib. 6. DVT of the left leg. 7. Pulmonary emboli. 8. GI reflux. 9. Hypothyroidism. 10. Chronic anemia. 11. Congestive heart failure. 12. Stress incontinence. 13. History of hysterectomy. 14. Cholecystectomy. 15. Pacemaker placement. 16. Benign breast biopsy. MEDICATIONS As per hospitalist chart. ALLERGIES ASPIRIN. CELEBREX. SULFA. FAMILY HISTORY A son with metastatic thyroid carcinoma. SOCIAL HISTORY The patient denies any smoking or major EtOH intake at the present time. REVIEW OF SYSTEMS Constitutional: The patient is a little bit forgetful, seems to be slightly confused but denies any fevers or chills. Seems to be oriented in place but not in time as regards to time of the year and month of the year. Allergic: Has not had a major allergic reaction recently. Eyes: Wears glasses. ENT: Unremarkable. Denies any difficulty or pain swallowing. Neck: Unremarkable. Integumentary: Dry skin. Cardiovascular: Unremarkable. Denies any chest pain. Respiratory: Unremarkable. Denies any hemoptysis. Gastrointestinal: Admits to constant discomfort of the abdominal cavity which has been going on for many years. The son thinks that perhaps the discomfort has increased recently. Genitourinary: Admits to stress incontinence. Musculoskeletal: Unremarkable. Neurological: Slight dementia. Cognitive functions appear to be stable. The patient is able to answer most of the questions. There is no motor function deficits. The patient as I said before is slightly confused. Psychiatric: Unremarkable. Endocrine: Unremarkable. Hematologic: Unremarkable. Dermatologic: Unremarkable. PHYSICAL EXAMINATION General: The patient is oriented in place. She knows she is in the hospital but cannot tell me what month of the year it is. Is able to answer questions in regards to how many sons she has and also about her address where she is currently living but continues to ask questions as we discuss her present condition. Pain rating scale: Appears to be 0/10. Lungs: To the auscultation bilateral lungs appear to be clear to auscultation with slight decrease in ventilatory respiratory effort which is equal and bilateral. Heart: Heart appeared to be irregular in rate and rhythm with no murmurs. Musculoskeletal: Palpation of the neck and bilateral supraclavicular areas are free. Abdomen: Palpation of the abdominal cavity appears to be slightly distended but I could not palpate any hepatosplenomegaly. No pain elicited. No periumbilical masses. The bilateral inguinal areas are free. Extremitites: There is lower extremity edema of 1+ bilaterally. Neurologic: To examination no motor function deficits were detected. As noted above, cognitive function is slightly decreased. The patient seems somewhat forgetful. No other positive findings. 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 RADIOLOGY Chest x-ray 03/09/[address] ABDOMEN AND PELVIS 03/09/2016 - IMPRESSION: Chronic malignant severe hydronephrosis bilaterally of intermediate etiology. Mild diffuse urinary bladder wall thickening. Uncomplicated sigmoid diverticulosis. Prominence of the extrahepatic and central, intrahepatic biliary system. Small to moderate-sized left pleural effusion and tiny right pleural effusion. Cardiomegaly. Atelectasis within the lingula of the left upper lobe. Degenerative changes and scoliosis of the thoracolumbar spine. Lower extremity ultrasound on 03/12/2016 reviewed. Abdominal x-ray on 03/17/2016 reviewed. ASSESSMENT An 89-year-old white female with diagnosis of recurrent invasive poorly-differentiated adenocarcinoma of the stomach. The patient being evaluated for possible palliative treatment options of recurrent disease. PLAN I have discussed this case personally today with Dr. Ruffin. I evaluated his note from 03/16/2016. I have also evaluated Dr. Hurd's note from 03/18/2016. I advised the patient and the son of the purpose and the merits of the radiation therapy. The plan basically is that, once the patient gets discharged, to perform a PET scan. If she has disease that is contained, recurrent within the stomach and possibly regional lymph nodes, we would be to provide the patient with palliative salvage radiation therapy to the area for quality of life. I believe that the radiation therapy will help in prevent bleeding, obstruction and further abdominal discomfort. I discussed the side effects and complications of the radiation therapy with the patient and the son to include but not limited to weakness and fatigue, decreased blood counts, erythema of the skin, necrosis of the skin, difficulty and pain in swallowing, esophageal strictures, lung damage, lung fibrosis, lung pneumonitis, possible heart damage, bowel damage and bowel perforation, stomach damage and perforation, bleeding, bone damage, nerve damage, spinal cord damage, nausea, vomiting and diarrhea, kidney damage and pancreatic damage and liver damage, veno occlussive disease of liver which could lead to . After thorough discussion, they were in agreement with the formulated plan as above. I will place an order for the patient to return for follow-up and after the PET scan and will go ahead and order the PET scan if it has not been ordered. Once it is performed, I will bring the patient back as an outpatient to discuss her options and we will move forward accordingly. They understood what was explained, I left my card for both of them. They were advised to give me a call if they had any further questions. Otherwise, we will proceed as above. Dr. Ruffin, thank you for placing this consult and allowing me to participate in her care. Should you have any further questions or concerns, please do not hesitate to contact me. Lul Nunez MD Radiation Oncologist ZACH LYON/JENN /12:36 PM /5:31 AM MTDD
[2016-03-19] MEDS: SODIUM CHLORIDE 0.9% FLUSH 5 ML FLUSH FLUSH SCH ×2 (09:00→20:43)
[2016-03-19] MEDS ORDERED: MEGE40TA PO (09:05)
[2016-03-19] MEDS ORDERED: METO50TA11 PO (09:05)
[2016-03-19] MEDS ORDERED: SENN1TAB PO (09:05)
[2016-03-19] MEDS ORDERED: TRAM50TA PO (09:05)
[2016-03-19] MEDS ORDERED: PANT40TA3 PO (09:05)
[2016-03-19] MEDS ORDERED: ARIC5TAB PO (09:05)
[2016-03-19] MEDS ORDERED: MAGICADU2 SWISH-SWAL (09:05)
[2016-03-19] MEDS ORDERED: NAME5TAB2 PO (09:05)
[2016-03-19] MEDS ORDERED: SUCR1S PO (09:05)
[2016-03-19] MEDS: MEGESTROL ACETATE 40 MG TAB PO SCH (09:31)
[2016-03-19] MEDS: POLYETHYLENE GLYCOL 17 GM PKG PO SCH (09:31)
[2016-03-19] MEDS: DONEPEZIL HCL 5 MG TAB PO SCH (09:32)
[2016-03-19] MEDS: METOPROLOL SUCCINATE 50 MG EXTENDED RELEASE TAB PO SCH (09:32)
[2016-03-19] MEDS: GABAPENTIN 300 MG CAP PO SCH ×2 (09:32→20:42)
[2016-03-19] MEDS: DOCUSATE SODIUM 50 MG/SENNA 8.6 MG TAB PO SCH ×2 (09:33→20:42)
[2016-03-19] MEDS: PANTOPRAZOLE SOD 40 MG DELAYED RELEASE TAB PO SCH ×2 (09:33→20:42)
[2016-03-19] MEDS: MULTIVITAMINS/MINERALS THERAPEUTIC TAB PO SCH (09:33)
[2016-03-19] MEDS: MEMANTINE HCL 5 MG TAB PO SCH (09:33)
[2016-03-19] MEDS: NYSTAT/DIPHENHY/LIDO MOUTHWASH (Adult) 120ML SWISH-SWAL SCH ×4 (09:33→20:42)
[2016-03-19] MEDS: ESTRADIOL 0.1 MG/GM VAG CREAM 42.5 GM VAGINAL SCH ×2 (09:33→21:45)
[2016-03-19] MEDS: TOLTERODINE TARTRATE 2 MG CAP LA PO SCH (09:39)
[2016-03-19] MEDS: POTASSIUM CL 40 MEQ/30 ML LIQ UDC PO SCH (09:40)
[2016-03-19] MEDS: SODIUM CHLOR 0.9% 1000 ML INJ 1,000 ML IV SCH ×2 (09:40→17:41)
--- NOTE | 2016-03-19 09:41 | HHI.PR ---
Subjective Remarks Follow-up for gastric cancer and renal failure Pain is controlled, patient feels good, no regimens, no nausea or vomiting. Creatinine however higher by 1.0. Discussed with RN Objective Vitals Vital Signs Date Time Temp Pulse Resp B/P Pulse Ox O2 Delivery O2 Flow Rate FiO2 03/19/16 08:00 98.8 79 18 118/68 94 03/19/16 04:15 92 Nasal Cannula 2.00 03/19/16 04:10 99.2 90 21 115/65 91 03/18/16 23:40 98.4 88 18 122/74 94 03/18/16 20:00 98.3 79 18 123/61 93 03/18/16 20:00 78 03/18/16 16:00 98.8 82 16 96/58 92 03/18/16 12:00 99.2 77 16 103/58 93 I/O 03/18/16 03/18/16 03/18/16 03/19/16 03/19/16 03/19/16 07:00 15:00 23:00 07:00 15:00 23:00 Intake Total 960 ml 1057 ml 973 ml Balance 960 ml 1057 ml 973 ml Intake Oral 960 ml 380 ml 360 ml IV Total 677 ml 613 ml # Voids 2 3 3 # Bowel Movements 0 Result Diagram: 03/16/16 0914 03/19/16 0350 Objective Remarks GENERAL: not in distress, a x o x 3 SKIN: Warm and dry. HEAD: Normocephalic. EYES: No scleral icterus. No injection or drainage. NECK: Supple, trachea midline. No JVD or lymphadenopathy. CARDIOVASCULAR: irregular rhythm, on telemetry RESPIRATORY: decreased breath sousnds bases, no rales, No accessory muscle use. GASTROINTESTINAL: abdomen distended, no tenderness MUSCULOSKELETAL: No cyanosis, + edema, mildly tender on palpation Sleepy but easily arousable, moves extremities. Procedures 03/14- EGD- esophagitis with gastric mass A/P Assessment and Plan 89-year-old female with past medical history of HTN, HLD, DM, A. fib, GERD, PE, hypothyroidism, CHF, h/o gastric CA who presented with abdominal pain Invasive adenocarcinoma-S/P EGD- Esophagitis with gastric mass- biopsy invasive adenocarcinoma 03/14- increasing abdominal pain, continue Zofran erythromycin. Seen by oncology, recommends radiation therapy, likely palliative but needs a PET scan first as outpatient. Seen by general surgery, no surgical options at this point. KUB did not show any ileus. Continue Protonix, continue oral and intravenous narcotics as needed for pain. Will need Dobbhoff if not eating. Seen by radiation oncology, plan is to do outpatient PET scan, then follow-up with radiation oncology. Poor oral intake -continue ensure and Megace. Might need Dobbhoff if not eating. Chest pain - no further episodes history of atrial fibrillation Pt had a recent negative stress test. 2D ECHO shows EF of 40-45 % PM checked - functioning, continue metoprolol. Avoid anticoagulation per oncology. Coumadin on hold. Hypokalemia 2/2 poor PO intake. Replace and monitor. Eating better. advise small meals Acute renal failure-likely secondary to overdiuresis, Lasix stopped, creatinine is higher today, 2.6, switch IVF to normal saline and increase to 1 50 cc/h, recheck BMP this afternoon. Left leg wound present on admission. Change dressing daily: single layer xeroform and dry cover daily.Discussed with wound care nurse. Bilateral LE edema; - negative for DVT, Patient has a h/o LE DVT, stop Lasix. Hydronephrosis: Abdominal CT showed "chronic moderate to severe hydronephrosis bilaterally of undetermined etiology". UA unremarkable. Monitor urine output. Has a good UOP. Confusion: - resolved . she is very interactive. loves to talk. a x ox x3, start Aricept and Namenda per psychiatry. Stop Compazine. Hypokalemia: Potassium 2.5 on admission . Resolved. Diabetes mellitus: Hold home metformin. SSI with Accu-Cheks. Chronic anticoagulation: Secondary to atrial fibrillation and history of DVT/ PE. Coumadin on hold as above. Anemia: macrocytic. B12, folate, iron panel, ferritin normal. Other chronic medical conditions include HLD, GERD, hypothyroidism: seen by Palliative care- to determine goals of care, patient DO NOT RESUSCITATE Discussed extensively with patient's son: They agree with doing PET scan as outpatient and then will take it from there. DVT prophylaxis: SCDs Discharge with home health care if BMP is better. Discharge Planning Discharge today or tomorrow once creatinine improves. Desire Cox MD Mar 19, 2016 09:41
--- NOTE | 2016-03-19 09:44 | HHI.DS ---
cc: Leonor Ulloa Jr., MD Discharge Summary Admission Date Mar 09, 2016 at 16:25 Discharge Date: Mar 25, 2016 Admitting Diagnosis bilateral hydronephrosis. Renal insufficiency. Hypokalemia. (1) gastric cancer, recurrent Diagnosis: Principal (2) Hypertension ICD Code: I10 Diagnosis: Secondary (3) Afib ICD Code: I48.91 Diagnosis: Secondary (4) Diabetes ICD Code: E11.9 Diagnosis: Secondary (5) Chest pain ICD Code: R07.9 Diagnosis: Secondary (6) MINE (acute kidney injury) ICD Code: N17.9 Procedures 03/14- EGD- esophagitis with gastric mass Brief History - From Admission 89-year-old female with past medical history of HTN, HLD, DM, A. fib, GERD, PE, hypothyroidism, CHF, h/o gastric CA who presented with abdominal pain. The patient is a poor historian. She states that she's had chronic abdominal pain "off and on for a long time", unable to specify how long, continually asks to "check my history". When asked if her abdominal pain is been getting worse lately she states "yes and no" but does not elaborate. She reports the abdominal pain is diffuse and worse in the upper abdomen. She does state that she has not had a bowel movement and "a couple of days" unsure when last BM was. She does state that she took MiraLAX and 2 enemas yesterday with still no BM. She denies any vomiting, but she states she feels like she needs to. She has been tolerating oral intake, but much. She was recently admitted at [facility], but she states they didn't do anything there so she checked herself out. She denies any chest pain, shortness of breath, fever, chills. She has chronic urinary incontinence. She states she is having some dysuria a few weeks ago and saw her urologist, Dr. Eduardo, who told her that she did not have an infection. She states that she hasn't seen her aircraft accessories mechanic in quite a while because they had "parted ways". CBC/BMP: 03/16/16 0914 03/19/16 0350 Significant Findings Laboratory Tests Test 03/17/16 03/17/16 03/18/16 03/19/16 04:53 10:59 06:00 03:50 Prothrombin Time 12.9 SEC 13.1 SEC (9.8-11.6) (9.8-11.6) Blood Urea Nitrogen 36 MG/DL (7-18) 52 MG/DL (7-18) Creatinine 1.69 MG/DL 2.60 MG/DL (0.50-1.00) (0.50-1.00) Estimat Glomerular Filtration 28 ML/MIN (>89) 17 ML/MIN (>89) Rate Random Glucose 130 MG/DL 118 MG/DL (74-106) (74-106) Calcium Level 8.0 MG/DL 8.1 MG/DL (8.5-10.1) (8.5-10.1) PE at Discharge GENERAL: not in distress, a x o x 3 SKIN: Warm and dry. HEAD: Normocephalic. EYES: No scleral icterus. No injection or drainage. NECK: Supple, trachea midline. No JVD or lymphadenopathy. CARDIOVASCULAR: irregular rhythm, on telemetry RESPIRATORY: decreased breath sousnds bases, no rales, No accessory muscle use. GASTROINTESTINAL: abdomen distended, no tenderness MUSCULOSKELETAL: No cyanosis, + edema, mildly tender on palpation Sleepy but easily arousable, moves extremities. Hospital Course This is a 89-year-old female with past medical history of HTN, HLD, DM, A. fib, GERD, PE, hypothyroidism, CHF, h/o gastric CA who presented with abdominal pain. Gastroenterology was consulted, patient went for an EGD which showed Esophagitis with gastric mass, biopsy done showed invasive adenocarcinoma . Oncology was consulted, recommends radiation therapy, likely palliative but needs a PET scan first as outpatient. Gastroenterology and radiation oncology were consulted. Seen by general surgery, no surgical options at this point. Seen by radiation oncology, plan is to do outpatient PET scan, then follow-up with radiation oncology. Patient was started ensure and Megace for oral intake. Patient has history of atrial fibrillation but Coumadin was stopped because of risk of bleeding per oncology. Patient also developed acute renal failure which was thought to be secondary to over diuresis. However creatinine did not improve with volume resuscitation. Repeat Ultrasound still showed bilateral hydronephrosis. A Adrian catheter was inserted after nephrology consultation. Urology was consulted. Renogram done showed bilateral high-grade obstruction right more than left without any significant excretion from Lasix administration. Creatinine improved after Adrian catheter insertion. Cleared for discharge by nephrology, will need to follow-up with urology in 1-2 weeks. May restart Lasix in a few days if creatinine continues to improve. We'll need to give Adrian catheter for now. Patient was also found to have urinary tract infection after patient became lethargic, urine culture grew Providencia stuartii, patient was started on ceftriaxone empirically and will be switched to Augmentin on discharge. Of note, patient has bilateral lower extremity edema which worsened after holding Lasix. Ultrasound was done and was negative for DVT. As above, may restart Lasix in a few days if kidney function remains stable. Pt Condition on Discharge: Good Discharge Disposition: [facility] with [facility] Discharge Time: > 30 minutes Discharge Instructions DIET: Follow Instructions for: As Tolerated, No Restrictions Activities you can perform: Regular-No Restrictions Follow up Referrals: Oncology - 2 Weeks with [facility] - 1 Week with [facility] - 1 Week with King Lujan MD New Medications: Amoxicillin-Clavulanate (Augmentin) 875-125 mg Tab 875 MG PO BID not for use in CrCl <30 ml/min. Infection #10 Ref 0 TAB Estradiol Vaginal (Estrace Vaginal) 0.01% Cream 1 APPL VAGINAL BID Apply twice a day x 2 week. Then 3 times / week thereafter. Dysuria #1 Ref 2 TUBE Donepezil (Aricept) 5 Mg Tab 5 MG PO DAILY dementia #30 TAB Estradiol Vaginal (Estrace Vaginal) 0.01% Cream 1 APPL VAGINAL BID vaginal dryness #1 TUBE Megestrol (Megestrol) 40 Mg Tab 400 MG PO DAILY appetite stimulant #30 TAB Megestrol Liq (Megestrol Liq) 40 Mg/Ml Susp 400 MG PO DAILY appetite #30 TAB Memantine (Namenda) 5 Mg Tab 5 MG PO DAILY dementia #30 TAB Metoprolol Succinate ER 24 HR (Metoprolol Succinate ER 24 HR) 50 Mg Tab 50 MG PO DAILY HTN #30 TAB Ibozzzyp-Brmivpskwgssrdy-Skxzqhgis Liq (Magic Mouthwash Adult Liq) 120 Ml Susp 5 ML SWISH-SWAL QID mouth cleansing/sores #1 ML Pantoprazole (Pantoprazole) 40 Mg Tab 40 MG PO BID stomach #60 TAB Sennosides (Senna Lax) 8.6 Mg Tab 17.2 MG PO Q12H constipation #60 TAB Sennosides-Docusate Sodium (Senna Plus 8.6-50 mg) 1 Tab Tab 2 TAB PO BID constipation #60 TAB Sucralfate Liq (Sucralfate Liq) 1 Gm/10 Ml Roxie 1 GM PO ACHS stomach #30 BOTTLE Continued Medications: Cholecalciferol (Vitamin D3) 1,000 Unit Tab 1000 UNITS PO DAILY Nutritional Supplement #1 Ref [address] (Jose Luis-Tab DR) 250 Mg Tabdr 250 MG PO Q8HR Infection Ref 0 TAB Gabapentin (Gabapentin) 300 Mg Cap 300 MG PO BID #60 Ref 0 CAP Levothyroxine (Synthroid) 50 Mcg Tab 50 MCG PO DAILY Thyroid #30 Ref 0 TAB Metformin (Metformin) 500 Mg Tab 500 MG PO BID With meals Blood Sugar Management #60 Ref 0 TAB Multiple Vitamins W/ Minerals (Theragran-M) 1 Tab 1 TAB PO DAILY Nutritional Supplement Ref 0 TAB Lena-3 Fatty Acids (Fish Oil 1200 mg) 1 Cap Cap 1200 MG PO BID Polyethylene Glycol 3350 Powder (Miralax Powder) 17 Gm Powd 17 GM PO DAILY Mix and dissolve one measuring cap-ful (17 grams) in water or juice. Constipation #1 Ref 0 BOTTLE Simvastatin (Simvastatin) 20 Mg Tab 20 MG PO HS Cholesterol Management #30 Ref 0 TAB Solifenacin (Vesicare) 5 Mg Tab 5 MG PO DAILY Urinary Symptom Managemen #30 Ref 0 TAB Tramadol (Tramadol) 50 Mg Tab 50 MG PO Q8H Pain Management #60 Ref 0 TAB (This prescription has been renewed) Vitamin E (Alph-E) 400 Unit Cap 400 UNITS PO BID Discontinued Medications: Furosemide (Lasix) 40 Mg Tab 40 MG PO DAILY #30 Ref 0 TAB Hydrochlorothiazide (Hydrochlorothiazide) 25 Mg Tab 25 MG PO DAILY #30 Ref 0 TAB Metoprolol Succinate ER 24 HR (Toprol XL) 25 Mg Tab 25 MG PO DAILY #30 Ref 0 TAB Potassium (Potassium) 99 Mg Tab 99 MG PO DAILY Warfarin (Coumadin) 5 Mg Tab 5 MG PO DAILY@1600 Blood Clot Prevention #30 Ref 0 TAB Desire Cox MD Mar 19, 2016 09:44
--- NOTE | 2016-03-19 13:42 | HHI.HCPN ---
Reason for visit a. To assist with evaluation and management of symptoms including: weakness , abdominal pain. b. To assist medical decision maker(s) with: better understanding of current medical conditions; weighing benefits/burdens of medical treatment options; making medical treatment decisions. . Subjective/Interval History Seen patient in her room. No family at bedside. Patient eating her lunch but having difficulties holding her utensils and coordinating folk to mouth movements. Patient tells me that she does not feel ready to go home even with home health involved. She reports that their help will be limited and that she is "in no physical shape to be independent". Patient wishing to be discharge to rehab for strengthening. She asked me to communicate this to her attending and her son Solitario. Patient denies pain or discomfort other than physical debility at the time of my visit. She reports that her urinary symptoms have decreased since Friday and is no longer endorsing dysuria. Denies chest pain. Patient afebrile. BP stable. Remains on O2 at 2L via NC. Hgb stable at 9.5. Increased in BUN/Creat 52/2.6, likely secondary to overdiuresis. On IVF. BPM to be rechecked this afternoon. 03/17 abdominal xray with nonobstructive bowel gas pattern and left pleural effusion. Currently on Erythromycin. Patient was started on Donepezil and Memantine as per psych recommendations. Spoke with patient's son/HCS Solitario and communicated patient's wishes. Discussed with Dr. Cox who feels that rehab is a better option for discharge. As per Dr. Cox's, rehab discharge was discussed with patient's son yesterday, but it was decided for patient to return to [facility] with home health. Discussed with Nafisa -immigration case manager. . Family/friend interactions See interval note. Advance Directives Living Will: Completed, but not made available Health Care Surrogate: Completed, but not made available Advance Directive Specifics Date completed: Living will and healthcare surrogate documents completed as per patient and family. Siddharth Jerez to bring for records. Documented care wishes: Pending copy of living will. Siddharth Jerez to bring. . Significant change in goals: NO CODE. Patient not feeling ready to return to [facility] with home health. Now wishing for rehab. . Objective Vital Signs Date Time Temp Pulse Resp B/P Pulse Ox O2 Delivery O2 Flow Rate FiO2 03/19/16 12:00 98.0 72 17 118/68 98 03/19/16 08:55 Nasal Cannula 2.00 21 03/19/16 08:00 98.8 79 18 118/68 94 03/19/16 04:15 92 Nasal Cannula 2.00 03/19/16 04:10 99.2 90 21 115/65 91 03/18/16 23:40 98.4 88 18 122/74 94 03/18/16 20:00 98.3 79 18 123/61 93 03/18/16 20:00 78 03/18/16 16:00 98.8 82 16 96/58 92 Intake & Output 03/19/16 03/19/16 06:59 18:59 Intake Total 2030 ml Balance 2030 ml Intake Oral 740 ml IV Total 1290 ml # Voids 6 Physical Exam CONSTITUTIONAL/GENERAL: This is an frail, elderly patient, in no apparent distress. TUBES/LINES/DRAINS: PIV's, SCD's. SKIN: No jaundice. Ecchymoses on upper and lower extremities. Skin tear to left lower leg. Skin temperature appropriate. Not diaphoretic. Stasis dermatitis to left lower leg. HEAD: Atraumatic. Normocephalic. EYES: Pupils equal and round and reactive.No scleral icterus. Fundi not examined. Poor vision. wears glasses. ENT: Very hard of hearing Nose without bleeding or purulent drainage. CARDIOVASCULAR: Irregular rate and rhythm without murmurs, gallops, or rubs. No JVD. Peripheral pulses symmetric. RESPIRATORY/CHEST: Symmetric, unlabored respirations. Clear, diminished to auscultation. Breath sounds equal bilaterally. No wheezes, rales, or rhonchi. GASTROINTESTINAL: Abdomen soft, non-tender, mildly distended. No guarding. Bowel sounds present. GENITOURINARY: Without palpable bladder distension. MUSCULOSKELETAL: Extremities without clubbing, cyanosis. No calf tenderness. No mottling or clubbing. +1 edema to BLE L>R. NEUROLOGICAL: Awake and alert. Motor and sensory grossly within normal limits. Follows commands. Moves all extremities. PSYCHIATRIC: very eloquent. No obvious anxiety/depression. no apparent hallucinations or other psychotic thought process. . Diagnostic Tests Laboratory Laboratory Tests Test 03/17/16 03/17/16 03/18/16 03/19/16 04:53 10:59 06:00 03:50 Prothrombin Time 12.9 SEC 13.1 SEC (9.8-11.6) (9.8-11.6) Prothromb Time International 1.2 RATIO 1.2 RATIO Ratio Sodium Level 141 MEQ/L 140 MEQ/L (136-145) (136-145) Potassium Level 4.1 MEQ/L 4.3 MEQ/L (3.5-5.1) (3.5-5.1) Chloride Level 103 MEQ/L 104 MEQ/L (98-107) (98-107) Carbon Dioxide Level 27.3 MEQ/L 25.6 MEQ/L (21.0-32.0) (21.0-32.0) Anion Gap 11 MEQ/L (5-15) 10 MEQ/L (5-15) Blood Urea Nitrogen 36 MG/DL (7-18) 52 MG/DL (7-18) Creatinine 1.69 MG/DL 2.60 MG/DL (0.50-1.00) (0.50-1.00) Estimat Glomerular Filtration 28 ML/MIN (>89) 17 ML/MIN (>89) Rate Random Glucose 130 MG/DL 118 MG/DL (74-106) (74-106) Calcium Level 8.0 MG/DL 8.1 MG/DL (8.5-10.1) (8.5-10.1) Result Diagram: 03/16/16 0914 03/19/16 0350 Imaging Last Impressions Abdomen X-Ray 03/17/16 0000 Signed Impressions: Service Date/Time: Thursday, March 17, 2016 10:10 - CONCLUSION: 1. Nonobstructive bowel gas pattern. 2. Left pleural effusion. Gurpreet Edwards MD Lower Extremity Ultrasound 03/12/16 0000 Signed Impressions: Service Date/Time: Saturday, March 12, 2016 14:41 - CONCLUSION: 1. No DVT identified within either lower extremity. 2. Small Doan's cyst within the popliteal fossa bilaterally. Cole Mondragon MD Chest X-Ray 03/09/16 1414 Signed Impressions: Service Date/Time: Wednesday, March 09, 2016 14:40 - CONCLUSION: 1. Small left pleural effusion. 2. Cardiomegaly. 3. Degenerative changes and scoliosis of the thoracolumbar spine. Ervin Lilly MD Abdomen/Pelvis CT 03/09/16 1414 Signed Impressions: Service Date/Time: Wednesday, March 09, 2016 15:26 - CONCLUSION: 1. Chronic moderate to severe hydronephrosis bilaterally of indeterminate etiology. 2. Mild diffuse urinary bladder wall thickening. 3. Uncomplicated sigmoid diverticulosis. 4. Minimal prominence of the extrahepatic and central intrahepatic biliary system. Correlation with alkaline phosphatase and bilirubin levels is suggested to rule out biliary obstruction. 5. Small to moderate sized left pleural effusion and tiny right pleural effusion. 4. Cardiomegaly. 5. Atelectasis within the lingula of the left upper lobe. 6. Degenerative changes and scoliosis of the thoracolumbar spine. Ervin Lilly MD Procedures * 01/13/16 EGD gastric biopsy positive poorly differentiated adenocarcinoma with signet ring features. . Assessment and Plan Disease Oriented Problem List: (1) gastric cancer, recurrent (2) MINE (acute kidney injury) (3) Left leg pain (4) DM (diabetes mellitus) (5) Elevated troponin (6) Atrial fibrillation (7) Congestive heart failure (8) Bilateral hydronephrosis (9) Hypokalemia (10) Chest pain Symptom Scale: (1) Chest pain 0-10 Scale: 0 (2) Left leg pain 0-10 Scale: 0 (3) Weakness 0-10 Scale: Unable to quantify (4) Abdominal pain 0-10 Scale: 5 Pertinent Non-Medical Issues Psychosocial: . Supported by her sons. Spiritual: [employer]. Legal:Son indicates patient has written advance directives, copies requested. Son indicates that Solitario Portillo (son) is designated power of corporate associate attorney and healthcare surrogate Ethical issues impacting care: no known concerns at this time. . Important Contacts * Solitario Portillo, son/HCP: [phone] lives local * Lebron Portillo, son: [phone] lives in [place] * David Portillo, son . Prognosis Ms. Cabrera is an 89-year-old female with multiple medical comorbidities including CHF, recurrent gastric cancer, chronic renal insufficiency, atrial fibrillation and possible early dementia. She was admitted with abdominal pain found to have recurrent poorly differentiated adenocarcinoma of the stomach. Since admission she had elevated troponin, likely chronic and secondary to heart failure, no plans for cardiac surgical intervention. Patient has had some ongoing functional and nutritional decline in the months prior to hospitalization. This is her 2nd acute-care hospitalization in the past month. Given her chronic comorbidities, advanced age, declining health she remains high risk for further decline and may be hospice appropriate if she is not a candidate for oncologic treatment. Pending outpatient CT PET. . Code Status: No Code Plan * Patient appears capacitated at this time. Son indicates patient has written advance directives, copies requested. Son indicates that Solitario Portillo (son) is designated power of corporate associate attorney and healthcare surrogate. * NO CODE. Signed community DNR in file. * 03/19/16 Goals of care: Pending discharge back to [facility] ([facility]) with home health. Patient tells me today that she does not feel ready to go home even with home health involved. She reports that their help will be limited and that she is "in no physical shape to be independent". Patient wishing to be discharge to rehab for strengthening. She asked me to communicate this to her attending and her son Solitario. In regards to cancer treatment, patient has been seen by Dr. Hollingsworth and Dr. Nunez. Patient is a poor surgical candidate. It was decided over the weekend with the assistance of her sons that patient is to obtain PET CT as outpatient and that treatment will be determined by disease progression, to include palliative radiation. * Case discussed with Dr. Cox, bedside RN and Nafisa -immigration case manager. * SYMPTOMS: weakness: general decline in the months leading up to this hospitalization, recurrent cancer. Continue PT. Abdominal pain: secondary to recurrent gastric cancer. Has tramadol 50 mg PO Q8 hours ordered, sparing need , will monitor. * Palliative care number provided. * Palliative care will continue to follow throughout hospital course to assist with symptom management and further clarification of treatment goals as needed. . Time Spent Time Periods: floor time to include chart review, TC to son and case discussion with Dr. Cox, RN and immigration case manager. Total Floor Time (mins): 40 Face to Face Time (mins): 15 >50% Counseling/Coord of Care: Yes Attestation To help prompt me to consider important information that might be impacting today's encounter and assessment, information from prior notes written by myself or my colleagues may have been "brought forward" into today's note. My signature on this note, however, is an attestation that I personally performed the exam, history, and/or decision-making noted today, and, unless otherwise indicated, the interactions with patient, family, and staff as well as the review of records all occurred today. I also attest that the listed assessment and stated plan reflect my best clinical judgment today based on the combination of historical information, prior notes, and today's exam/ interactions. When time spent is documented, it refers only to time spent today by the signer, or if indicated, combined time spent today by collaborating physician/nurse practitioner. Sunita Klein Mar 19, 2016 13:42
[2016-03-19 16:37] LABS: BICARBONATE 20.6 MEQ/L (21.0-32.0); POTASSIUM 4.4 MEQ/L (3.5-5.1)
[2016-03-19] MEDS: PRAVASTATIN SOD 40 MG TAB PO SCH (20:42)
--- NOTE | 2016-03-19 22:36 | RADRPT ---
EXAM DATE/TIME: 03/19/2016 21:02 [facility] COMPARISON: CT ABDOMEN & PELVIS W CONTRAST, March 09, 2016, 15:26. EXTERNAL COMPARISON : [facility], CTA ABDOMEN & PELVIS W 3D PROCESSING, September 29, 2015[facility], CT ABDOMEN & PELVIS W CONTRAST, April,. INDICATIONS : Renal failure. MEDICAL HISTORY : Hypercholesterolemia. Hypertension. Deep vein thrombosis. GERD. Neuropathy. Dyspnea. A-fib. Pulmona ry embolism. SURGICAL HISTORY : Hysterectomy. Gastric resection 2003. Bilateral cataract surgery. ENCOUNTER: Initial ACUITY: 1 day PAIN SCORE: 5/10 LOCATION: Bilateral flank MEASUREMENTS: RIGHT KIDNEY: 10.1 x 5.7 x 5.9 cm LEFT KIDNEY: 8.8 x 6.2 x 5.7 cm FINDINGS: RIGHT KIDNEY: There is severe dilatation of the right collecting system. LEFT KIDNEY: There is dilatation of the left collecting system although the left kidney is technically difficult t o fully examined. BLADDER: Within normal limits given the degree of distension. CONCLUSION: Bilateral hydronephrosis. Max Cartagena MD on March 19, 2016 at 22:34 Board Certified Radiologist. This report was verified electronically.
[2016-03-20] MEDS: LACTATED RINGER'S 1000 ML IV SCH (01:45)
[2016-03-20 04:17] VITALS: BP 143/79; PULSE 92; RESP 18; TEMP 96.9; O2SAT 98
[2016-03-20] MEDS: INSULIN ASPART SUPPLEMENTAL SCALE SQ SCH ×4 (05:38→21:00)
[2016-03-20] MEDS: ERYTHROMYCIN EC 250 MG TABEC PO SCH ×3 (05:38→21:43)
[2016-03-20] MEDS: LEVOTHYROXINE SODIUM 50 MCG TAB PO SCH (05:38)
[2016-03-20] MEDS: SODIUM CHLOR 0.9% 1000 ML INJ 1,000 ML IV SCH ×2 (05:38→17:35)
[2016-03-20] MEDS: SUCRALFATE 1 GM/10 ML CUP PO SCH ×4 (05:38→21:43)
[2016-03-20 06:58] LABS: BICARBONATE 21.2 MEQ/L (21.0-32.0)
[2016-03-20 08:00] VITALS: BP 112/81; PULSE 106; RESP 18; TEMP 96.4; O2SAT 95
[2016-03-20] MEDS: SODIUM CHLORIDE 0.9% FLUSH 5 ML FLUSH FLUSH SCH ×2 (09:00→21:26)
[2016-03-20] MEDS: NYSTAT/DIPHENHY/LIDO MOUTHWASH (Adult) 120ML SWISH-SWAL SCH ×4 (09:45→21:43)
[2016-03-20] MEDS: MEGESTROL ACETATE 40 MG TAB PO SCH (09:45)
[2016-03-20] MEDS: POTASSIUM CL 40 MEQ/30 ML LIQ UDC PO SCH (09:49)
[2016-03-20] MEDS: PANTOPRAZOLE SOD 40 MG DELAYED RELEASE TAB PO SCH ×2 (09:51→21:32)
[2016-03-20] MEDS: MULTIVITAMINS/MINERALS THERAPEUTIC TAB PO SCH (09:51)
[2016-03-20] MEDS: TOLTERODINE TARTRATE 2 MG CAP LA PO SCH (09:51)
[2016-03-20] MEDS: METOPROLOL SUCCINATE 50 MG EXTENDED RELEASE TAB PO SCH (09:52)
[2016-03-20] MEDS: POLYETHYLENE GLYCOL 17 GM PKG PO SCH (09:52)
[2016-03-20] MEDS: DOCUSATE SODIUM 50 MG/SENNA 8.6 MG TAB PO SCH ×2 (09:52→21:27)
[2016-03-20] MEDS: DONEPEZIL HCL 5 MG TAB PO SCH (09:52)
[2016-03-20] MEDS: GABAPENTIN 300 MG CAP PO SCH ×2 (09:52→21:26)
[2016-03-20] MEDS: ESTRADIOL 0.1 MG/GM VAG CREAM 42.5 GM VAGINAL SCH ×2 (09:53→21:44)
[2016-03-20] MEDS: MEMANTINE HCL 5 MG TAB PO SCH (09:56)
[2016-03-20] MEDS: traMADol HCL 50 MG TAB PO PRN (09:57)
[2016-03-20 12:00] VITALS: BP_SYST 130; BP_SYST 95; BP_DIAS 55; BP_DIAS 82; PULSE 87; PULSE 93; RESP 17; RESP 18; TEMP 99.1; O2SAT 94; O2SAT 97
--- NOTE | 2016-03-20 13:31 | HHI.PR ---
Subjective Remarks Follow-up for renal failure Creatinine is higher, patient receiving fluids, no shortness of breath. Pain is controlled. Objective Vitals Vital Signs Date Time Temp Pulse Resp B/P Pulse Ox O2 Delivery O2 Flow Rate FiO2 03/20/16 12:00 99.1 87 17 95/55 97 03/20/16 12:00 99.1 93 18 130/82 94 03/20/16 12:00 99.1 93 18 130/82 94 03/20/16 10:15 95 Nasal Cannula 1.00 03/20/16 08:00 96.4 106 18 112/81 95 03/20/16 04:17 96.9 92 18 143/79 98 03/19/16 23:42 97.9 103 18 136/70 94 03/19/16 20:40 96 Nasal Cannula 2.00 03/19/16 20:33 98.8 91 20 115/72 96 03/19/16 20:00 94 03/19/16 16:00 98.2 74 17 116/66 96 I/O 03/19/16 03/19/16 03/19/16 03/20/16 03/20/16 03/20/16 07:00 15:00 23:00 07:00 15:00 23:00 Intake Total 973 ml 1471 ml 1136 ml 1439 ml Output Total 800 ml 600 ml 100 ml Balance 973 ml 671 ml 536 ml 1439 ml -100 ml Intake Oral 360 ml 520 ml 480 ml 780 ml IV Total 613 ml 951 ml 656 ml 659 ml Output Urine Total 800 ml 600 ml 100 ml # Voids 3 3 1 Result Diagram: 03/16/16 0914 03/20/16 0521 Objective Remarks GENERAL: not in distress, a x o x 3 SKIN: Warm and dry. HEAD: Normocephalic. EYES: No scleral icterus. No injection or drainage. NECK: Supple, trachea midline. No JVD or lymphadenopathy. CARDIOVASCULAR: irregular rhythm, on telemetry RESPIRATORY: decreased breath sousnds bases, no rales, No accessory muscle use. GASTROINTESTINAL: abdomen, mildly distended, no tenderness MUSCULOSKELETAL: No cyanosis, + edema, mildly tender on palpation Sleepy but easily arousable, moves extremities. Procedures 03/14- EGD- esophagitis with gastric mass A/P Problem List: (1) gastric cancer, recurrent Status: Acute (2) Hypertension ICD Code: I10 Status: Acute (3) Afib ICD Code: I48.91 Status: Acute (4) Diabetes ICD Code: E11.9 Status: Acute (5) Chest pain ICD Code: R07.9 Status: Acute Assessment and Plan 89-year-old female with past medical history of HTN, HLD, DM, A. fib, GERD, PE, hypothyroidism, CHF, h/o gastric CA who presented with abdominal pain Invasive adenocarcinoma-S/P EGD- Esophagitis with gastric mass- biopsy invasive adenocarcinoma 03/14- increasing abdominal pain, continue Zofran erythromycin. Seen by oncology, recommends radiation therapy, likely palliative but needs a PET scan first as outpatient. Seen by general surgery, no surgical options at this point. KUB did not show any ileus. Continue Protonix, continue oral and intravenous narcotics as needed for pain. Seen by radiation oncology, plan is to do outpatient PET scan, then follow-up with radiation oncology. Poor oral intake -continue ensure and Megace. Might need Dobbhoff if not eating. Chest pain - no further episodes history of atrial fibrillation Pt had a recent negative stress test. 2D ECHO shows EF of 40-45 % PM checked - functioning, continue metoprolol. Avoid anticoagulation per oncology. Coumadin on hold. Hypokalemia 2/2 poor PO intake. Replace and monitor. Eating better. advise small meals Acute renal failure with bilateral hydronephrosis- ultrasound still shows bilateral hydronephrosis, seen by urology previously, conservative management, possible cystoscopy as outpatient. This time, likely secondary to overdiuresis , Lasix stopped, creatinine still high despite IVF, consult nephrology. Recheck BMP tomorrow. Check urinalysis. Left leg wound present on admission. Change dressing daily: single layer xeroform and dry cover daily.Discussed with wound care nurse. Bilateral LE edema; - negative for DVT, Patient has a h/o LE DVT, stop Lasix. Hydronephrosis: Abdominal CT showed "chronic moderate to severe hydronephrosis bilaterally of undetermined etiology". UA unremarkable. Monitor urine output. Has a good UOP. Confusion: - resolved . she is very interactive. loves to talk. a x ox x3, start Aricept and Namenda per psychiatry. Stop Compazine. Hypokalemia: Potassium 2.5 on admission . Resolved. Diabetes mellitus: Hold home metformin. SSI with Accu-Cheks. Chronic anticoagulation: Secondary to atrial fibrillation and history of DVT/ PE. Coumadin on hold as above. Anemia: macrocytic. B12, folate, iron panel, ferritin normal. Other chronic medical conditions include HLD, GERD, hypothyroidism: seen by Palliative care- to determine goals of care, patient DO NOT RESUSCITATE Discussed extensively with patient's son: They agree with doing PET scan as outpatient and then will take it from there. DVT prophylaxis: SCDs Discharge Planning Discharge today or tomorrow once creatinine improves. Desire Cox MD Mar 20, 2016 13:31
[2016-03-20 16:00] VITALS: BP 132/90; PULSE 96; RESP 18; TEMP 95.9; O2SAT 93
--- NOTE | 2016-03-20 16:25 | PD.CONS ---
HPI Service Nephrology Consult Requested By Dr. Cox Reason for Consult Acute and chronic kidney disease with hydronephrosis Primary Care Physician Leonor Ulloa MD History of Present Illness Patient is a 89-year-old white female with history of poorly differentiated adenocarcinoma of the stomach first discovered in 2003 status post surgery and she has recurrence requiring a second procedure in 2013 she had a recurrence the third time now and she has a mass with a poorly differentiated adenocarcinoma again, patient has been discovered with bilateral hydronephrosis seen by urology due to chronic nature and it was decided to treat this as an outpatient, her creatinine was 1.3 and now it has climbed up she did receive CT with IV contrast earlier, a repeat ultrasound showed bilateral hydronephrosis her creatinine is 2.76. Review of Systems Constitutional: COMPLAINS OF: Fatigue Ears, nose, mouth, throat: COMPLAINS OF: Ear Pain (hearing loss) Cardiovascular: COMPLAINS OF: Lower Extremity Edema Gastrointestinal: COMPLAINS OF: Abdominal pain Past Family Social History Allergies: Coded Allergies: Aspirin (Verified Allergy, Severe, 11/22/14) MILD REACTION; EXCESSIVE SALIVA Celebrex (Verified Allergy, Severe, RASH, 11/22/14) MILD REACTION-RASH Sulfa (Verified Allergy, Severe, Rash, 11/22/14) PT STATES SHE IS NOT ALLERGIC TO THIS MED Past Medical History Hypertension Hyperlipidemia Diabetes mellitus Atrial fibrillation History of PE on chronic anticoagulation GERD Hypothyroidism History of gastric cancer status post resection and radiation Chronic anemia/leukopenia CHF, diastolic Stress incontinence Past Surgical History Gastric cancer resection Javan-en-Y surgery Hysterectomy Cholecystectomy Pacemaker placement Reported Medications Reported Meds & Active Scripts Active Magic Mouthwash Adult Liq (Multi-Ingredient Mouthwash/Gargle) 120 Ml Susp 5 Ml SWISH-SWAL QID Tramadol (Tramadol HCl) 50 Mg Tab 50 Mg PO Q8H Estrace Vaginal (Estradiol) 0.01% Cream 1 Appl VAGINAL BID Apply twice a day x 2 week. Then 3 times / week thereafter. Reported Simvastatin 20 Mg Tab 20 Mg PO HS Miralax Powder (Polyethylene Glycol 3350 Powder) 17 Gm Powd 17 Gm PO DAILY Mix and dissolve one measuring cap-ful (17 grams) in water or juice. Fish Oil 1200 mg ([place]-3 Fatty Acids) 1 Cap Cap 1,200 Mg PO BID Theragran-M (Multiple Vitamins W/ Minerals) 1 Tab 1 Tab PO DAILY Toprol XL (Metoprolol Succinate) 25 Mg Tab 25 Mg PO DAILY Metformin (Metformin HCl) 500 Mg Tab 500 Mg PO BID With meals Gabapentin 300 Mg Cap 300 Mg PO BID Alph-E (Vitamin E) 400 Unit Cap 400 Units PO BID Potassium 99 Mg Tab 99 Mg PO DAILY Synthroid (Levothyroxine Sodium) 50 Mcg Tab 50 Mcg PO DAILY Vitamin D3 (Cholecalciferol) 1,000 Unit Tab 1,000 Units PO DAILY Coumadin (Warfarin) 5 Mg Tab 5 Mg PO DAILY@1600 Vesicare (Solifenacin) 5 Mg Tab 5 Mg PO DAILY Lasix (Furosemide) 40 Mg Tab 40 Mg PO DAILY Hydrochlorothiazide 25 Mg Tab 25 Mg PO DAILY Jose Luis-Tab DR (Erythromycin) 250 Mg Tabdr 250 Mg PO Q8HR Active Ordered Medications Current Medications Medications (Trade) Dose Ordered Sig/Armin Route Start Time Stop Time Status Last Admin (NS Flush) 2 ml UNSCH PRN FLUSH 03/09/16 16:30 (NS Flush) 2 ml BID FLUSH 03/09/16 21:00 03/18/16 08:58 (Tylenol) 650 mg Q4H PRN PO 03/09/16 16:30 (Zofran Inj) 4 mg Q6H PRN IVP 03/09/16 16:30 03/17/16 08:04 (Dulcolax Supp) 10 mg DAILY PRN MS 03/09/16 16:30 (Milk Of Magnesia Liq) 30 ml Q12H PRN PO 03/09/16 16:30 03/13/16 10:21 (Senokot) 17.2 mg Q12H PRN PO 03/09/16 16:30 (Restoril) 15 mg HS PRN PO 03/09/16 16:30 (Erythromycin Ec) 250 mg Q8HR PO 03/09/16 22:00 03/20/16 13:41 (Neurontin) 300 mg BID PO 03/09/16 21:00 03/20/16 09:52 (Synthroid) 50 mcg DAILY@06 PO 03/10/16 06:00 03/20/16 05:38 (Theragran M Tab) 1 tab DAILY PO 03/10/16 09:00 03/20/16 09:51 (Miralax) 17 gm DAILY PO 03/10/16 09:00 03/20/16 09:52 (Coumadin) 5 mg DAILY@1600 PO 03/09/16 17:38 Hold 03/11/16 16:35 (KCl 40 Meq/30 ml Liq) 2.53 meq DAILY PO 03/10/16 09:00 03/20/16 09:49 (Pravachol) 40 mg HS PO 03/09/16 21:00 03/19/16 20:42 (Detrol La) 2 mg DAILY PO 03/10/16 09:00 03/20/16 09:51 (D50w (Vial) Inj) 25 ml UNSCH PRN IV PUSH 03/09/16 16:30 (Glucagon Inj) 1 mg UNSCH PRN OTHER 03/09/16 16:30 (Teagan-Colace) 2 tab BID PO 03/09/16 21:00 03/20/16 09:52 (Teagan-Colace) 2 tab BID PRN PO 03/09/16 17:30 (Ultram) 50 mg Q8H PRN PO 03/09/16 18:00 03/20/16 09:57 (Estrace 0.01% Vag Cream) 1 appl BID VAGINAL 03/10/16 21:00 03/20/16 09:53 (Magic Mouthwash Adult Liq) 5 ml QID SWISH-SWAL 03/11/16 18:00 03/20/16 11:40 (Carafate Liq) 1 gm ACHS PO 03/11/16 21:00 03/20/16 10:04 Sodium Biphosphate/ Sodium Phosphate 133 ml 133 ml UNSCH PRN MS 03/11/16 22:00 (Lr 1000 ml Inj) 1,000 ml @ 30 mls/hr Q24H IV 03/14/16 01:45 (Protonix) 40 mg BID PO 03/14/16 21:00 03/20/16 09:51 (Toprol Xl) 50 mg DAILY PO 03/16/16 09:00 03/20/16 09:52 (Aricept) 5 mg DAILY PO 03/18/16 13:00 03/20/16 09:52 (Namenda) 5 mg DAILY PO 03/18/16 13:00 03/20/16 09:56 Megestrol Acetate 400 mg 400 mg DAILY PO 03/18/16 13:00 03/20/16 09:45 (NS 1000 ml Inj) 1,000 ml @ 75 mls/hr [id number] IV 03/19/16 09:00 03/20/16 05:38 Family History Noncontributory Social History She states she was active in her younger days denies smoking, rarely uses alcohol Physical Exam Vital Signs Vital Signs Date Time Temp Pulse Resp B/P Pulse Ox O2 Delivery O2 Flow Rate FiO2 03/20/16 12:00 99.1 87 17 95/55 97 03/20/16 12:00 99.1 93 18 130/82 94 03/20/16 12:00 99.1 93 18 130/82 94 03/20/16 10:15 95 Nasal Cannula 1.00 03/20/16 08:00 96.4 106 18 112/81 95 03/20/16 04:17 96.9 92 18 143/79 98 03/19/16 23:42 97.9 103 18 136/70 94 03/19/16 20:40 96 Nasal Cannula 2.00 03/19/16 20:33 98.8 91 20 115/72 96 03/19/16 20:00 94 Physical Exam GENERAL: Well-nourished, well-developed patient. SKIN: Warm and dry. HEAD: Normocephalic. EYES: No scleral icterus. No injection or drainage. NECK: Supple, trachea midline. No JVD or lymphadenopathy. CARDIOVASCULAR: Irregularly irregular RESPIRATORY: Breath sounds equal bilaterally. No accessory muscle use. GASTROINTESTINAL: Abdomen soft, non-tender, nondistended. EXTREMITIES: No cyanosis, 1+ edema. NEUROLOGICAL: Awake, alert, and oriented x 3. Non-focal. Laboratory Laboratory Tests Test 03/20/16 05:21 Sodium Level 139 Potassium Level 5.0 Chloride Level 106 Carbon Dioxide Level 21.2 Anion Gap 12 Blood Urea Nitrogen 59 Creatinine 2.76 Estimat Glomerular Filtration 16 Rate Random Glucose 96 Calcium Level 8.3 Result Diagram: 03/16/16 0914 03/20/16 0521 Imaging Last Impressions Renal Ultrasound 03/19/16 0000 Signed Impressions: Service Date/Time: Saturday, March 19, 2016 21:02 - CONCLUSION: Bilateral hydronephrosis. Max Cartagena MD Abdomen X-Ray 03/17/16 0000 Signed Impressions: Service Date/Time: Thursday, March 17, 2016 10:10 - CONCLUSION: 1. Nonobstructive bowel gas pattern. 2. Left pleural effusion. Gurpreet Edwards MD Lower Extremity Ultrasound 03/12/16 0000 Signed Impressions: Service Date/Time: Saturday, March 12, 2016 14:41 - CONCLUSION: 1. No DVT identified within either lower extremity. 2. Small Doan's cyst within the popliteal fossa bilaterally. Cole Mondragon MD Chest X-Ray 03/09/16 1414 Signed Impressions: Service Date/Time: Wednesday, March 09, 2016 14:40 - CONCLUSION: 1. Small left pleural effusion. 2. Cardiomegaly. 3. Degenerative changes and scoliosis of the thoracolumbar spine. Ervin Lilly MD Abdomen/Pelvis CT 03/09/16 1414 Signed Impressions: Service Date/Time: Wednesday, March 09, 2016 15:26 - CONCLUSION: 1. Chronic moderate to severe hydronephrosis bilaterally of indeterminate etiology. 2. Mild diffuse urinary bladder wall thickening. 3. Uncomplicated sigmoid diverticulosis. 4. Minimal prominence of the extrahepatic and central intrahepatic biliary system. Correlation with alkaline phosphatase and bilirubin levels is suggested to rule out biliary obstruction. 5. Small to moderate sized left pleural effusion and tiny right pleural effusion. 4. Cardiomegaly. 5. Atelectasis within the lingula of the left upper lobe. 6. Degenerative changes and scoliosis of the thoracolumbar spine. Ervin Lilly MD Assessment and Plan Problem List: (1) MINE (acute kidney injury) Plan: Patient has obstructive uropathy and a repeat ultrasound showed the she has bilateral hydronephrosis of uncertain etiology urology has seen her at this point the I will order a Adrian catheter as her creatinine is rising Avoid nephrotoxins avoid further dye studies Follow up with urology as needed (2) Bilateral hydronephrosis Plan: Patient is a having cancer and possibly related complications possible lymphadenopathy causing bilateral hydronephrosis etiology remains unclear (3) Atrial fibrillation Plan: Chronic (4) gastric cancer, recurrent Plan: Recurrence of cancer Michael Avila MD Mar 20, 2016 16:25
[2016-03-20 17:36] LABS: BACTERIA, URINE MANY /hpf; BLOOD, URINE SMALL (NEG); COMMENT (UR) CULTURE INDICATED; CULTURE IF INDICATED CULTURE INDICATED; GLUCOSE,URINE NEG (NEG); KETONE, URINE NEG (NEG); NITRITE,URINE NEG (NEG); URINE COLOR YELLOW (YELLW/STRAW)
[2016-03-20 19:41] VITALS: PULSE 102
[2016-03-20 20:00] VITALS: BP 117/73; PULSE 85; RESP 17; TEMP 95.7; O2SAT 97
[2016-03-20] MEDS: PRAVASTATIN SOD 40 MG TAB PO SCH (21:32)
[2016-03-21] VITALS: BP 119/82; PULSE 114; RESP 18; TEMP 96.2; O2SAT 97
[2016-03-21] MEDS: LACTATED RINGER'S 1000 ML IV SCH (01:45)
[2016-03-21 04:00] VITALS: BP 125/85; PULSE 93; RESP 18; TEMP 96; O2SAT 96
[2016-03-21 05:51] LABS: BICARBONATE 22.9 MEQ/L (21.0-32.0); POTASSIUM 4.6 MEQ/L (3.5-5.1)
[2016-03-21] MEDS: ERYTHROMYCIN EC 250 MG TABEC PO SCH ×3 (05:51→21:13)
[2016-03-21] MEDS: LEVOTHYROXINE SODIUM 50 MCG TAB PO SCH (05:51)
[2016-03-21] MEDS: SUCRALFATE 1 GM/10 ML CUP PO SCH ×4 (05:52→21:13)
[2016-03-21] MEDS: INSULIN ASPART SUPPLEMENTAL SCALE SQ SCH ×4 (05:52→21:12)
[2016-03-21] MEDS: SODIUM CHLOR 0.9% 1000 ML INJ 1,000 ML IV SCH (05:53)
[2016-03-21 08:00] VITALS: BP 121/84; PULSE 123; RESP 18; TEMP 97.6; O2SAT 96
[2016-03-21] MEDS: SODIUM CHLORIDE 0.9% FLUSH 5 ML FLUSH FLUSH SCH ×2 (09:00→21:13)
[2016-03-21] MEDS: MEGESTROL ACETATE SUSP 400 MG/10 ML CUP PO SCH (09:44)
[2016-03-21] MEDS: NYSTAT/DIPHENHY/LIDO MOUTHWASH (Adult) 120ML SWISH-SWAL SCH ×4 (09:44→21:13)
[2016-03-21] MEDS: POLYETHYLENE GLYCOL 17 GM PKG PO SCH (09:45)
[2016-03-21] MEDS: POTASSIUM CL 40 MEQ/30 ML LIQ UDC PO SCH (09:45)
[2016-03-21] MEDS: PANTOPRAZOLE SOD 40 MG DELAYED RELEASE TAB PO SCH ×2 (09:48→21:13)
[2016-03-21] MEDS: MULTIVITAMINS/MINERALS THERAPEUTIC TAB PO SCH (09:48)
[2016-03-21] MEDS: METOPROLOL SUCCINATE 50 MG EXTENDED RELEASE TAB PO SCH (09:48)
[2016-03-21] MEDS: MEMANTINE HCL 5 MG TAB PO SCH (09:48)
[2016-03-21] MEDS: DOCUSATE SODIUM 50 MG/SENNA 8.6 MG TAB PO SCH ×2 (09:48→21:13)
[2016-03-21] MEDS: DONEPEZIL HCL 5 MG TAB PO SCH (09:49)
[2016-03-21] MEDS: GABAPENTIN 300 MG CAP PO SCH ×2 (09:49→21:13)
[2016-03-21] MEDS: TOLTERODINE TARTRATE 2 MG CAP LA PO SCH (09:49)
[2016-03-21] MEDS: ESTRADIOL 0.1 MG/GM VAG CREAM 42.5 GM VAGINAL SCH ×2 (09:51→21:14)
--- NOTE | 2016-03-21 10:02 | HHI.PR ---
Subjective Remarks Follow-up for acute renal failure Creatinine about the same, Adrian catheter inserted, seen by nephrology. Patient does not have any significant pain. Denies any shortness of breath. No nausea or vomiting. Objective Vitals Vital Signs Date Time Temp Pulse Resp B/P Pulse Ox O2 Delivery O2 Flow Rate FiO2 03/21/16 04:00 96.0 93 18 125/85 96 03/21/16 00:00 96.2 114 18 119/82 97 03/20/16 20:00 95.7 85 17 117/73 97 03/20/16 19:41 102 03/20/16 16:00 95.9 96 18 132/90 93 03/20/16 12:00 99.1 87 17 95/55 97 03/20/16 12:00 99.1 93 18 130/82 94 03/20/16 12:00 99.1 93 18 130/82 94 03/20/16 10:15 95 Nasal Cannula 1.00 I/O 03/20/16 03/20/16 03/20/16 03/21/16 03/21/16 03/21/16 07:00 15:00 23:00 07:00 15:00 23:00 Intake Total 1439 ml 830 ml 1077 ml 1449 ml Output Total 700 ml 300 ml 950 ml Balance 1439 ml 130 ml 777 ml 499 ml Intake Oral 780 ml 240 ml 480 ml 240 ml IV Total 659 ml 590 ml 597 ml 1209 ml Output Urine Total 700 ml 300 ml 950 ml # Voids 3 1 1 # Bowel Movements 0 Result Diagram: 03/21/16 0428 Objective Remarks GENERAL: not in distress, a x o x 3 SKIN: Warm and dry. HEAD: Normocephalic. EYES: No scleral icterus. No injection or drainage. NECK: Supple, trachea midline. No JVD or lymphadenopathy. CARDIOVASCULAR: irregular rhythm, on telemetry RESPIRATORY: decreased breath sounds at bases, no rales, No accessory muscle use. Poor effort. GASTROINTESTINAL: abdomen, mildly distended, no tenderness, Adrian catheter in place. MUSCULOSKELETAL: No cyanosis, + edema, mildly tender on palpation Sleepy but easily arousable, moves extremities. Procedures 03/14- EGD- esophagitis with gastric mass A/P Problem List: (1) gastric cancer, recurrent Status: Acute (2) Hypertension ICD Code: I10 Status: Acute (3) Afib ICD Code: I48.91 Status: Acute (4) Diabetes ICD Code: E11.9 Status: Acute (5) Chest pain ICD Code: R07.9 Status: Acute Assessment and Plan 89-year-old female with past medical history of HTN, HLD, DM, A. fib, GERD, PE, hypothyroidism, CHF, h/o gastric CA who presented with abdominal pain Invasive adenocarcinoma-S/P EGD- Esophagitis with gastric mass- biopsy invasive adenocarcinoma 03/14- increasing abdominal pain, continue Zofran erythromycin. Seen by oncology, recommends radiation therapy, likely palliative but needs a PET scan first as outpatient. Seen by general surgery, no surgical options at this point. KUB did not show any ileus. Continue Protonix, continue oral and intravenous narcotics as needed for pain. Seen by radiation oncology, plan is to do outpatient PET scan, then follow-up with radiation oncology. Acute renal failure with bilateral hydronephrosis, nonoliguric- ultrasound still shows bilateral hydronephrosis, seen by urology previously, conservative management, possible cystoscopy as outpatient. This time, likely secondary to overdiuresis, Lasix stopped, creatinine still high despite IVF, nephrology consulted, Adrian catheter placed, recommended to reconsult urology. Consult Dr. Lujan, recheck BMP tomorrow. Stop IVF. . UTI-patient has been lethargic at times but easily arousable, urinalysis suspicious, urine culture pending, start ceftriaxone. . Poor oral intake -continue ensure and Megace. Might need Dobbhoff if not eating. Chest pain, history of atrial fibrillation - no further episodes,Pt had a recent negative stress test. 2D ECHO shows EF of 40-45 %, PM checked - functioning, continue metoprolol. Avoid anticoagulation per oncology. Coumadin on hold. Hypokalemia 2/2 poor PO intake. Replace and monitor. Eating better. advise small meals Left leg wound present on admission. Change dressing daily: single layer xeroform and dry cover daily.Discussed with wound care nurse. Bilateral LE edema; - negative for DVT, Patient has a h/o LE DVT, stop Lasix. Hydronephrosis: Abdominal CT showed "chronic moderate to severe hydronephrosis bilaterally of undetermined etiology". UA unremarkable. Monitor urine output. Has a good UOP. Confusion: - resolved . she is very interactive. loves to talk. a x ox x3, start Aricept and Namenda per psychiatry. Stop Compazine. Hypokalemia: Potassium 2.5 on admission . Resolved. Diabetes mellitus: Hold home metformin. SSI with Accu-Cheks. Chronic anticoagulation: Secondary to atrial fibrillation and history of DVT/ PE. Coumadin on hold as above. Anemia: macrocytic. B12, folate, iron panel, ferritin normal. Other chronic medical conditions include HLD, GERD, hypothyroidism: seen by Palliative care- to determine goals of care, patient DO NOT RESUSCITATE Discussed extensively with patient's son: They agree with doing PET scan as outpatient and then will take it from there. DVT prophylaxis: SCDs Discharge Planning Discharge today or tomorrow once creatinine improves. Desire Cox MD Mar 21, 2016 10:02
[2016-03-21 12:00] VITALS: BP 111/71; PULSE 100; RESP 17; TEMP 95; O2SAT 95
[2016-03-21] MEDS: cefTRIAXone INJ 1,000 MG in SODIUM CHLORIDE 0.9% INJ 100 ML IV SCH (12:00)
--- NOTE | 2016-03-21 15:29 | HHI.NPPN ---
Subjective History of Present Illness 89 year old with ARF Obstructive uropathy, adenocarcinoma of stomach Review of Systems General Constitutional: Fatigue Objective Data Data 03/20/16 03/21/16 18:59 06:59 Intake Total 830 ml 2526 ml Output Total 800 ml 1150 ml Balance 30 ml 1376 ml Intake Oral 240 ml 720 ml IV Total 590 ml 1806 ml Output Urine Total 800 ml 1150 ml # Voids 2 # Bowel Movements 0 Vital Signs Date Time Temp Pulse Resp B/P Pulse Ox O2 Delivery O2 Flow Rate FiO2 03/21/16 12:00 95.0 100 17 111/71 95 03/21/16 08:00 97.6 123 18 121/84 96 03/21/16 04:00 96.0 93 18 125/85 96 03/21/16 00:00 96.2 114 18 119/82 97 03/20/16 20:00 95.7 85 17 117/73 97 03/20/16 19:41 102 03/20/16 16:00 95.9 96 18 132/90 93 -: 03/21/16 0428 Microbiology 03/20/16 Urine Culture - Preliminary, Resulted Gram Negative Anil Physical Exam General Appearance: Well Developed Neck Neck Exam: Neck Supple Pulmonary Resp Exam: Clear Bilaterally, Breath Sounds Equal Cardiology CV Exam: Arrhythmia Gastrointestinal/Abdomen GI Exam: Soft, Non-Tender Extremeties Extremities Exam: Trace Edema Assessment/Plan Problem List: (1) MINE (acute kidney injury) Plan: creatinine declined 2.6 Urology follow up Renogram ordered BMP in am (2) Bilateral hydronephrosis Plan: Patient is a having cancer and possibly related complications possible lymphadenopathy causing bilateral hydronephrosis etiology remains unclear (3) Atrial fibrillation Plan: Chronic (4) gastric cancer, recurrent Plan: Recurrence of cancer Michael Avila MD Mar 21, 2016 15:29
[2016-03-21] MEDS ORDERED: FUROSEMIDE 40 MG/4 ML VIAL ONE (15:56)
--- NOTE | 2016-03-21 17:10 | RADRPT ---
EXAM DATE/TIME: 03/21/2016 16:17 [facility] COMPARISON: US KIDNEY/RENAL/BLADDER, March 19, 2016, 21:02. CTA RUNOFF W 3D RECON, February 05, 2016, 22:07. CT ABDOMEN & PELVIS W CONTRAST, March 09, 2016, 15:26. INDICATIONS : Bilateral hydronephrosis. DOSE: 21.1 mCi Tc99m DTPA IV MEDICATION: 40 mg Lasix IV MEDICAL HISTORY : Hypertension. Adenocarcinoma of the stomach. SURGICAL HISTORY : Hysterectomy. ENCOUNTER: Initial ACUITY: 1 day PAIN SCALE: 4/10 LOCATION: Right flank TECHNIQUE: Dynamic images were performed in the posterior projection for a total of 28 minutes. FINDINGS: FLOW: There is delay in arrival of the bolus to both kidneys but with earlier and more perfusion to the lef t kidney than the right. EXCRETION: There is delayed uptake bilaterally with little to no excretion visualized in the right kidney and mi nimal excretion in the left kidney with little if any drainage. Following Lasix administration no emp tying occurs. Split function is 66% on the left and 34% on the right. CONCLUSION: There is abnormal decreased perfusion to the kidneys with abnormal decreased excretion and drainage b ilaterally, right greater than left. Findings are characteristic of bilateral high-grade obstruction worse on the right than left. There is essentially no significant excretion or drainage following Las ix administration. Max Garzon MD on March 21, 2016 at 17:02 Board Certified Radiologist. This report was verified electronically.
--- NOTE | 2016-03-21 17:45 | HHI.PR ---
Subjective Remarks Patient with bilateral hydronephrosis and elevated Cr. hydro appears stable and unchanged from prior. the elevation in her creatinine may be dehydration or medication related. Renal scan completed suggests possible obstruction, however with elevated Cr it is unclear. At this time the patient is doing well, no pain, no fevers. Adrian in place, draining clear yellow urine. Objective Vital Signs Vital Signs Date Time Temp Pulse Resp B/P Pulse Ox O2 Delivery O2 Flow Rate FiO2 03/21/16 12:00 95.0 100 17 111/71 95 03/21/16 08:00 97.6 123 18 121/84 96 03/21/16 04:00 96.0 93 18 125/85 96 03/21/16 00:00 96.2 114 18 119/82 97 03/20/16 20:00 95.7 85 17 117/73 97 03/20/16 19:41 102 I/O 03/20/16 03/20/16 03/20/16 03/21/16 03/21/16 03/21/16 07:00 15:00 23:00 07:00 15:00 23:00 Intake Total 1439 ml 830 ml 1077 ml 1449 ml 454 ml Output Total 700 ml 300 ml 950 ml 700 ml 400 ml Balance 1439 ml 130 ml 777 ml 499 ml -246 ml -400 ml Intake Oral 780 ml 240 ml 480 ml 240 ml IV Total 659 ml 590 ml 597 ml 1209 ml 454 ml Output Urine Total 700 ml 300 ml 950 ml 700 ml 400 ml # Voids 3 1 1 # Bowel Movements 0 2 1 Result Diagram: 03/21/16 0428 Imaging Last 24 hours Impressions Renal Scan w/Medication NM 03/21/16 0000 Signed Impressions: Service Date/Time: February 16:17 - CONCLUSION: There is abnormal decreased perfusion to the kidneys with abnormal decreased excretion and drainage bilaterally, right greater than left. Findings are characteristic of bilateral high-grade obstruction worse on the right than left. There is essentially no significant excretion or drainage following Lasix administration. Max Garzon MD Assessment and Plan Assessment and Plan -Extensive discussion with the patient regarding her renal function and imaging findings -Discussed case with Dr. Lujan -At this time, will continue to monitor her Cr. Will consider possible bilateral ureteral stent placement if no improvement or worsening renal function. However, it is unclear if stents will truly help her renal function as her hydronephrosis appears chronic and stable, with normal creatinine prior. Casey Reyes MD Mar 21, 2016 17:45
[2016-03-21 20:00] VITALS: BP 116/77; PULSE 105; RESP 18; TEMP 97.3; O2SAT 96
[2016-03-21] MEDS: PRAVASTATIN SOD 40 MG TAB PO SCH (21:13)
[2016-03-21 21:16] VITALS: PULSE 93
[2016-03-22] VITALS: BP 124/75; PULSE 96; RESP 18; TEMP 96.1; O2SAT 94
[2016-03-22] MEDS: LACTATED RINGER'S 1000 ML IV SCH ×2 (01:45→21:31)
[2016-03-22 04:34] LABS: HEMATOCRIT 27.1 % (35.0-46.0); MEAN CELL VOLUME 105.4 FL (80.0-100.0); MEAN CORPUSCULAR HEMOGLOBIN 35.1 PG (27.0-34.0); MEAN CORPUSCULAR HGB CONC 33.3 % (32.0-36.0); PLATELET COUNT 175 TH/MM3 (150-450); RED BLOOD COUNT 2.57 MIL/MM3 (4.00-5.30); RED CELL DISTRIBUTION WIDTH 17.1 % (11.6-17.2); WHITE BLOOD COUNT 7.1 TH/MM3 (4.0-11.0)
[2016-03-22 04:48] LABS: BICARBONATE 22.1 MEQ/L (21.0-32.0); POTASSIUM 4.5 MEQ/L (3.5-5.1)
[2016-03-22 04:57] LABS: HEMO FLAGS AUTO DIFF
[2016-03-22 05:00] VITALS: BP 185/66; PULSE 108; RESP 18; TEMP 98.1; O2SAT 93
[2016-03-22] MEDS: SUCRALFATE 1 GM/10 ML CUP PO SCH ×4 (05:01→21:27)
[2016-03-22] MEDS: LEVOTHYROXINE SODIUM 50 MCG TAB PO SCH (05:01)
[2016-03-22] MEDS: INSULIN ASPART SUPPLEMENTAL SCALE SQ SCH ×4 (05:01→21:43)
[2016-03-22] MEDS: ERYTHROMYCIN EC 250 MG TABEC PO SCH ×3 (05:01→21:26)
[2016-03-22 07:24] LABS: ACANTHOCYTES OCC (NORMAL); BANDS 25 % (0-6); CORRECTED NUCLEATED RBC 1 /100 WBC (0-0); METAMYELOCYTES 2 % (0-1); NEUTROPHIL # MANUAL DIFF 5.3 TH/MM3 (1.8-7.7); OVALOCYTES 2+ (NORMAL); PLATELET ESTIMATE SMEAR NORMAL (NORMAL); PLATELET MORPHOLOGY NORMAL (NORMAL); POLYS (SEG NEUTROPHILS) 47 % (16-70); SCAN/DIFF FINAL DIFF MANUAL; WBC DIFF SAMPLE 100
[2016-03-22 08:00] VITALS: BP 136/99; PULSE 105; RESP 16; TEMP 96.3; O2SAT 94
[2016-03-22] MEDS: DONEPEZIL HCL 5 MG TAB PO SCH (08:56)
[2016-03-22] MEDS: PANTOPRAZOLE SOD 40 MG DELAYED RELEASE TAB PO SCH ×2 (08:56→21:26)
[2016-03-22] MEDS: NYSTAT/DIPHENHY/LIDO MOUTHWASH (Adult) 120ML SWISH-SWAL SCH ×4 (08:56→21:00)
[2016-03-22] MEDS: POTASSIUM CL 40 MEQ/30 ML LIQ UDC PO SCH (08:56)
[2016-03-22] MEDS: MEMANTINE HCL 5 MG TAB PO SCH (08:57)
[2016-03-22] MEDS: METOPROLOL SUCCINATE 50 MG EXTENDED RELEASE TAB PO SCH (08:57)
[2016-03-22] MEDS: GABAPENTIN 300 MG CAP PO SCH ×2 (08:57→21:26)
[2016-03-22] MEDS: SODIUM CHLORIDE 0.9% FLUSH 5 ML FLUSH FLUSH SCH ×2 (08:57→21:30)
[2016-03-22] MEDS: TOLTERODINE TARTRATE 2 MG CAP LA PO SCH (08:57)
[2016-03-22] MEDS: POLYETHYLENE GLYCOL 17 GM PKG PO SCH (08:57)
[2016-03-22] MEDS: MULTIVITAMINS/MINERALS THERAPEUTIC TAB PO SCH (08:57)
[2016-03-22] MEDS: ESTRADIOL 0.1 MG/GM VAG CREAM 42.5 GM VAGINAL SCH ×2 (08:57→21:00)
[2016-03-22] MEDS: DOCUSATE SODIUM 50 MG/SENNA 8.6 MG TAB PO SCH ×2 (08:57→21:26)
[2016-03-22] MEDS: MEGESTROL ACETATE SUSP 400 MG/10 ML CUP PO SCH (08:57)
--- NOTE | 2016-03-22 09:36 | HHI.PR ---
Subjective Remarks Follow-up for renal failure, cancer Patient has no complaints, denies shortness of breath, feels better today, has better appetite, feels stronger. Creatinine is a little bit better. -1.1L overnight. Blood pressure is fluctuating, denies any headache. Objective Vitals Vital Signs Date Time Temp Pulse Resp B/P Pulse Ox O2 Delivery O2 Flow Rate FiO2 03/22/16 08:00 96.3 105 16 136/99 94 03/22/16 05:00 98.1 108 18 185/66 93 03/22/16 00:00 96.1 96 18 124/75 94 03/21/16 21:16 93 03/21/16 20:00 97.3 105 18 116/77 96 03/21/16 12:00 95.0 100 17 111/71 95 I/O 03/21/16 03/21/16 03/21/16 03/22/16 03/22/16 03/22/16 07:00 15:00 23:00 07:00 15:00 23:00 Intake Total 1449 ml 454 ml 240 ml 0 ml Output Total 950 ml 700 ml 1150 ml Balance 499 ml -246 ml -910 ml 0 ml Intake Oral 240 ml 240 ml IV Total 1209 ml 454 ml 0 ml 0 ml Output Urine Total 950 ml 700 ml 1150 ml # Bowel Movements 2 1 Result Diagram: 03/22/16 03403/22/16 0340 Objective Remarks GENERAL: not in distress, a x o x 3 SKIN: Warm and dry. HEAD: Normocephalic. EYES: No scleral icterus. No injection or drainage. NECK: Supple, trachea midline. No JVD or lymphadenopathy. CARDIOVASCULAR: irregular rhythm, on telemetry RESPIRATORY: decreased breath sounds at bases, no rales, No accessory muscle use. Poor effort. GASTROINTESTINAL: abdomen, mildly distended, no tenderness, Adrian catheter in place. Clear urine MUSCULOSKELETAL: No cyanosis, 1 + edema, mildly tender on palpation Awake, alert, oriented to place and person, moves extremities. Procedures 03/14- EGD- esophagitis with gastric mass A/P Problem List: (1) gastric cancer, recurrent Status: Acute (2) Hypertension ICD Code: I10 Status: Acute (3) Afib ICD Code: I48.91 Status: Acute (4) Diabetes ICD Code: E11.9 Status: Acute (5) Chest pain ICD Code: R07.9 Status: Acute Assessment and Plan 89-year-old female with past medical history of HTN, HLD, DM, A. fib, GERD, PE, hypothyroidism, CHF, h/o gastric CA who presented with abdominal pain Invasive adenocarcinoma-S/P EGD- Esophagitis with gastric mass- biopsy invasive adenocarcinoma 03/14- increasing abdominal pain, continue Zofran erythromycin. Seen by oncology, recommends radiation therapy, likely palliative but needs a PET scan first as outpatient. Seen by general surgery, no surgical options at this point. KUB did not show any ileus. Continue Protonix, continue oral and intravenous narcotics as needed for pain. Seen by radiation oncology, plan is to do outpatient PET scan, then follow-up with radiation oncology. Acute renal failure with bilateral hydronephrosis, nonoliguric- ultrasound still shows bilateral hydronephrosis, creatinine still high despite IVF, nephrology consulted, Adrian catheter placed, urology reconsulted, renogram done showed bilateral high-grade obstruction right more than the left without any significant excretion from Lasix administration. Follow BMP tomorrow, might need a stent if worsening creatinine. UTI-patient has been lethargic at times but easily arousable, urine culture growing gram-negative rods, continue ceftriaxone (03/21/16-). Poor oral intake -continue ensure and Megace. Might need Dobbhoff if not eating. Chest pain, history of atrial fibrillation - no further episodes,Pt had a recent negative stress test. 2D ECHO shows EF of 40-45 %, PM checked - functioning, continue metoprolol. Avoid anticoagulation per oncology. Coumadin on hold. Hypokalemia 2/2 poor PO intake. Replace and monitor. Eating better. advise small meals Left leg wound present on admission. Change dressing daily: single layer xeroform and dry cover daily.Discussed with wound care nurse. Bilateral LE edema; - negative for DVT, Patient has a h/o LE DVT, stop Lasix for now, elevate legs, discussed with RN. Confusion: - resolved . Hypokalemia: Potassium 2.5 on admission . Resolved. Diabetes mellitus: Hold home metformin. SSI with Accu-Cheks. Chronic anticoagulation: Secondary to atrial fibrillation and history of DVT/ PE. Coumadin on hold as above. Anemia: macrocytic. B12, folate, iron panel, ferritin normal. Other chronic medical conditions include HLD, GERD, hypothyroidism: seen by Palliative care- to determine goals of care, patient DO NOT RESUSCITATE Discussed extensively with patient's son: They agree with doing PET scan as outpatient and then will take it from there. DVT prophylaxis: SCDs Discharge Planning Discharge after cleared by nephrology and urology Desire Cox MD Mar 22, 2016 09:36
[2016-03-22 12:00] VITALS: BP 127/84; PULSE 98; RESP 16; TEMP 96.8; O2SAT 97
[2016-03-22] MEDS: cefTRIAXone INJ 1,000 MG in SODIUM CHLORIDE 0.9% INJ 100 ML IV SCH (12:00)
[2016-03-22 16:00] VITALS: BP 140/89; PULSE 99; RESP 16; TEMP 96.9; O2SAT 97
--- NOTE | 2016-03-22 16:17 | HHI.NPPN ---
Subjective History of Present Illness 89 year old with ARF Obstructive uropathy, adenocarcinoma of stomach Review of Systems General Constitutional: Fatigue Objective Data Data 03/21/16 03/22/16 19:00 07:00 Intake Total 454 ml 240 ml Output Total 1100 ml 750 ml Balance -646 ml -510 ml Intake Oral 240 ml IV Total 454 ml 0 ml Output Urine Total 1100 ml 750 ml # Bowel Movements 3 0 Vital Signs Date Time Temp Pulse Resp B/P Pulse Ox O2 Delivery O2 Flow Rate FiO2 03/22/16 12:00 96.8 98 16 127/84 97 03/22/16 08:00 96.3 105 16 136/99 94 03/22/16 05:00 98.1 108 18 185/66 93 03/22/16 00:00 96.1 96 18 124/75 94 03/21/16 21:16 93 03/21/16 20:00 97.3 105 18 116/77 96 -: 03/22/16 0340 03/22/16 0340 Physical Exam General Appearance: Well Developed Neck Neck Exam: Neck Supple Pulmonary Resp Exam: Clear Bilaterally, Breath Sounds Equal Cardiology CV Exam: Arrhythmia Gastrointestinal/Abdomen GI Exam: Soft, Non-Tender Extremeties Extremities Exam: Trace Edema Assessment/Plan Problem List: (1) MINE (acute kidney injury) Plan: creatinine declined 2.53 Urology follow up Renogram showed obstructive uropathy high grade R>L awaiting final input from Urology (2) Bilateral hydronephrosis Plan: Patient is a having cancer and possibly related complications possible lymphadenopathy causing bilateral hydronephrosis etiology remains unclear (3) Atrial fibrillation Plan: Chronic (4) gastric cancer, recurrent Plan: Recurrence of cancer Michael Avila MD Mar 22, 2016 16:17
[2016-03-22 20:00] VITALS: BP 142/80; PULSE 103; RESP 18; TEMP 97.9; O2SAT 94
[2016-03-22] MEDS: PRAVASTATIN SOD 40 MG TAB PO SCH (21:26)
[2016-03-23] VITALS: BP 139/87; PULSE 82; RESP 16; TEMP 97.9; O2SAT 96
[2016-03-23 04:00] VITALS: BP 127/78; PULSE 96; RESP 18; TEMP 97.2; O2SAT 94
[2016-03-23 05:33] LABS: BICARBONATE 21.5 MEQ/L (21.0-32.0); POTASSIUM 3.9 MEQ/L (3.5-5.1)
[2016-03-23] MEDS: LEVOTHYROXINE SODIUM 50 MCG TAB PO SCH (06:28)
[2016-03-23] MEDS: SUCRALFATE 1 GM/10 ML CUP PO SCH ×4 (06:28→21:31)
[2016-03-23] MEDS: ERYTHROMYCIN EC 250 MG TABEC PO SCH ×3 (06:28→21:38)
[2016-03-23] MEDS: INSULIN ASPART SUPPLEMENTAL SCALE SQ SCH ×4 (06:29→21:00)
[2016-03-23 08:00] VITALS: BP 139/80; PULSE 99; RESP 17; TEMP 96.8; O2SAT 94
[2016-03-23] MEDS: MEMANTINE HCL 5 MG TAB PO SCH (08:37)
[2016-03-23] MEDS: POTASSIUM CL 40 MEQ/30 ML LIQ UDC PO SCH (08:38)
[2016-03-23] MEDS: METOPROLOL SUCCINATE 50 MG EXTENDED RELEASE TAB PO SCH (08:39)
[2016-03-23] MEDS: DOCUSATE SODIUM 50 MG/SENNA 8.6 MG TAB PO SCH ×2 (08:39→21:31)
[2016-03-23] MEDS: TOLTERODINE TARTRATE 2 MG CAP LA PO SCH (08:39)
[2016-03-23] MEDS: GABAPENTIN 300 MG CAP PO SCH ×2 (08:39→21:31)
[2016-03-23] MEDS: MEGESTROL ACETATE SUSP 400 MG/10 ML CUP PO SCH (08:39)
[2016-03-23] MEDS: PANTOPRAZOLE SOD 40 MG DELAYED RELEASE TAB PO SCH ×2 (08:39→21:31)
[2016-03-23] MEDS: DONEPEZIL HCL 5 MG TAB PO SCH (08:39)
[2016-03-23] MEDS: MULTIVITAMINS/MINERALS THERAPEUTIC TAB PO SCH (08:39)
[2016-03-23] MEDS: POLYETHYLENE GLYCOL 17 GM PKG PO SCH (08:40)
[2016-03-23] MEDS: NYSTAT/DIPHENHY/LIDO MOUTHWASH (Adult) 120ML SWISH-SWAL SCH ×4 (08:42→21:39)
[2016-03-23] MEDS: ESTRADIOL 0.1 MG/GM VAG CREAM 42.5 GM VAGINAL SCH ×2 (08:44→21:32)
[2016-03-23] MEDS: SODIUM CHLORIDE 0.9% FLUSH 5 ML FLUSH FLUSH SCH ×2 (08:45→21:32)
--- NOTE | 2016-03-23 09:43 | HHI.PR ---
Subjective Remarks Follow-up for renal failure, adenocarcinoma of the stomach Creatinine is better a little bit from 2.52.27. Patient is asymptomatic not short of breath, no chest pain, afebrile. Good urine output. No complaints. Objective Vitals Vital Signs Date Time Temp Pulse Resp B/P Pulse Ox O2 Delivery O2 Flow Rate FiO2 03/23/16 08:00 96.8 99 17 139/80 94 03/23/16 04:00 97.2 96 18 127/78 94 03/23/16 00:00 97.9 82 16 139/87 96 03/22/16 20:00 97.9 103 18 142/80 94 03/22/16 16:00 96.9 99 16 140/89 97 03/22/16 12:00 96.8 98 16 127/84 97 I/O 03/22/16 03/22/16 03/22/16 03/23/16 03/23/16 03/23/16 07:00 15:00 23:00 07:00 15:00 23:00 Intake Total 0 ml 600 ml 120 ml 120 ml Output Total 775 ml 550 ml 300 ml Balance 0 ml -175 ml -430 ml -180 ml Intake Oral 600 ml 120 ml 120 ml IV Total 0 ml 0 ml 0 ml Output Urine Total 775 ml 550 ml 300 ml # Bowel Movements 0 0 1 Result Diagram: 03/22/16 0340 03/23/16 0355 Objective Remarks GENERAL: not in distress, a x o x 3 SKIN: Warm and dry. HEAD: Normocephalic. EYES: No scleral icterus. No injection or drainage. NECK: Supple, trachea midline. No JVD or lymphadenopathy. CARDIOVASCULAR: irregular rhythm, on telemetry RESPIRATORY: decreased breath sounds at bases, no rales, No accessory muscle use. Poor effort. GASTROINTESTINAL: abdomen, mildly distended, no tenderness, Adrian catheter in place. Clear urine MUSCULOSKELETAL: No cyanosis, 2 + edema, mildly tender on palpation Awake, alert, oriented to place, time and person, moves extremities. Procedures 03/14- EGD- esophagitis with gastric mass A/P Problem List: (1) gastric cancer, recurrent Status: Acute (2) Hypertension ICD Code: I10 Status: Acute (3) Afib ICD Code: I48.91 Status: Acute (4) Diabetes ICD Code: E11.9 Status: Acute (5) Chest pain ICD Code: R07.9 Status: Acute Assessment and Plan 89-year-old female with past medical history of HTN, HLD, DM, A. fib, GERD, PE, hypothyroidism, CHF, h/o gastric CA who presented with abdominal pain Invasive adenocarcinoma-S/P EGD- Esophagitis with gastric mass- biopsy invasive adenocarcinoma 03/14- increasing abdominal pain, continue Zofran erythromycin. Seen by oncology, recommends radiation therapy, likely palliative but needs a PET scan first as outpatient. Seen by general surgery, no surgical options at this point. KUB did not show any ileus. Continue Protonix, continue oral and intravenous narcotics as needed for pain. Seen by radiation oncology, plan is to do outpatient PET scan, then follow-up with radiation oncology. Acute renal failure with bilateral hydronephrosis, nonoliguric- ultrasound still shows bilateral hydronephrosis, creatinine still high despite IVF, nephrology consulted, Adrian catheter placed, urology reconsulted, renogram done showed bilateral high-grade obstruction right more than the left without any significant excretion from Lasix administration. Creatinine better, nonoliguric , might need a stent if worsening creatinine but obviously better, recheck BMP tomorrow. Baseline creatinine is 1.3. UTI-patient has been lethargic at times but easily arousable, urine culture grew Providencia stuartii, continue ceftriaxone (03/21/16-03/29/16). Poor oral intake -continue ensure and Megace. Might need Dobbhoff if not eating. Chest pain, history of atrial fibrillation - no further episodes,Pt had a recent negative stress test. 2D ECHO shows EF of 40-45 %, PM checked - functioning, continue metoprolol. Avoid anticoagulation per oncology. Coumadin on hold. Hypokalemia 2/2 poor PO intake. Replace and monitor. Eating better. advise small meals Left leg wound present on admission. Change dressing daily: single layer xeroform and dry cover daily.Discussed with wound care nurse. Bilateral LE edema; - negative for DVT, Patient has a h/o LE DVT, stop Lasix for now, elevate legs, discussed with RN. Confusion: - resolved . Hypokalemia: Resolved. Diabetes mellitus: Hold home metformin. SSI with Accu-Cheks. Chronic anticoagulation: Secondary to atrial fibrillation and history of DVT/ PE. Coumadin on hold as above. Anemia: macrocytic. B12, folate, iron panel, ferritin normal. Other chronic medical conditions include HLD, GERD, hypothyroidism: seen by Palliative care- to determine goals of care, patient DO NOT RESUSCITATE Discussed extensively with patient's son: They agree with doing PET scan as outpatient and then will take it from there. DVT prophylaxis: SCDs Discharge Planning Discharge after cleared by nephrology and urology, to SNF likely Friday Desire Cox MD Mar 23, 2016 09:43
[2016-03-23] MEDS: cefTRIAXone INJ 1,000 MG in SODIUM CHLORIDE 0.9% INJ 100 ML IV SCH (11:51)
[2016-03-23 12:00] VITALS: BP 138/92; PULSE 94; RESP 16; TEMP 96.2; O2SAT 95
--- NOTE | 2016-03-23 15:53 | HHI.NPPN ---
Subjective History of Present Illness 89 year old with ARF Obstructive uropathy, adenocarcinoma of stomach Review of Systems General Constitutional: Fatigue Objective Data Data 03/22/16 03/23/16 18:59 06:59 Intake Total 600 ml 240 ml Output Total 775 ml 850 ml Balance -175 ml -610 ml Intake Oral 600 ml 240 ml IV Total 0 ml Output Urine Total 775 ml 850 ml # Bowel Movements 0 1 Vital Signs Date Time Temp Pulse Resp B/P Pulse Ox O2 Delivery O2 Flow Rate FiO2 03/23/16 12:00 96.2 94 16 138/92 95 03/23/16 08:00 96.8 99 17 139/80 94 03/23/16 04:00 97.2 96 18 127/78 94 03/23/16 00:00 97.9 82 16 139/87 96 03/22/16 20:00 97.9 103 18 142/80 94 03/22/16 16:00 96.9 99 16 140/89 97 -: 03/22/16 0340 03/23/16 0355 Physical Exam General Appearance: Well Developed Neck Neck Exam: Neck Supple Pulmonary Resp Exam: Clear Bilaterally, Breath Sounds Equal Cardiology CV Exam: Arrhythmia Gastrointestinal/Abdomen GI Exam: Soft, Non-Tender Extremeties Extremities Exam: Trace Edema Assessment/Plan Problem List: (1) MINE (acute kidney injury) Plan: creatinine declined 2.27 Urology follow up Renogram showed obstructive uropathy high grade R>L declining creatinine may need a stent (2) Bilateral hydronephrosis Plan: Patient is a having cancer and possibly related complications possible lymphadenopathy causing bilateral hydronephrosis etiology remains unclear (3) Atrial fibrillation Plan: Chronic (4) gastric cancer, recurrent Plan: Recurrence of cancer Michael Avila MD Mar 23, 2016 15:53
[2016-03-23 16:00] VITALS: BP 158/94; PULSE 90; RESP 16; TEMP 96; O2SAT 97
[2016-03-23 20:00] VITALS: BP 132/78; PULSE 106; RESP 18; TEMP 98.4; O2SAT 94
[2016-03-23] MEDS: PRAVASTATIN SOD 40 MG TAB PO SCH (21:31)
[2016-03-24] VITALS: BP 137/82; PULSE 98; RESP 19; TEMP 98.6; O2SAT 94
[2016-03-24] MEDS: LACTATED RINGER'S 1000 ML IV SCH (01:45)
[2016-03-24] MEDS: SUCRALFATE 1 GM/10 ML CUP PO SCH ×4 (05:27→22:36)
[2016-03-24] MEDS: LEVOTHYROXINE SODIUM 50 MCG TAB PO SCH (05:27)
[2016-03-24] MEDS: ERYTHROMYCIN EC 250 MG TABEC PO SCH ×3 (05:27→22:37)
[2016-03-24] MEDS: INSULIN ASPART SUPPLEMENTAL SCALE SQ SCH ×4 (05:29→22:37)
[2016-03-24 07:18] LABS: BICARBONATE 23.4 MEQ/L (21.0-32.0); POTASSIUM 3.5 MEQ/L (3.5-5.1)
[2016-03-24 08:00] VITALS: BP 137/85; PULSE 99; RESP 18; TEMP 96.6; O2SAT 96
[2016-03-24] MEDS: METOPROLOL SUCCINATE 50 MG EXTENDED RELEASE TAB PO SCH (08:31)
[2016-03-24] MEDS: MEMANTINE HCL 5 MG TAB PO SCH (08:31)
[2016-03-24] MEDS: DONEPEZIL HCL 5 MG TAB PO SCH (08:31)
[2016-03-24] MEDS: MULTIVITAMINS/MINERALS THERAPEUTIC TAB PO SCH (08:31)
[2016-03-24] MEDS: POTASSIUM CL 40 MEQ/30 ML LIQ UDC PO SCH (08:31)
[2016-03-24] MEDS: DOCUSATE SODIUM 50 MG/SENNA 8.6 MG TAB PO SCH ×2 (08:31→22:37)
[2016-03-24] MEDS: SODIUM CHLORIDE 0.9% FLUSH 5 ML FLUSH FLUSH SCH ×2 (08:32→22:36)
[2016-03-24] MEDS: GABAPENTIN 300 MG CAP PO SCH ×2 (08:32→22:36)
[2016-03-24] MEDS: MEGESTROL ACETATE SUSP 400 MG/10 ML CUP PO SCH (08:32)
[2016-03-24] MEDS: NYSTAT/DIPHENHY/LIDO MOUTHWASH (Adult) 120ML SWISH-SWAL SCH ×4 (08:32→22:37)
[2016-03-24] MEDS: PANTOPRAZOLE SOD 40 MG DELAYED RELEASE TAB PO SCH ×2 (08:32→22:37)
[2016-03-24] MEDS: TOLTERODINE TARTRATE 2 MG CAP LA PO SCH (08:32)
[2016-03-24] MEDS: POLYETHYLENE GLYCOL 17 GM PKG PO SCH (08:32)
[2016-03-24] MEDS: ESTRADIOL 0.1 MG/GM VAG CREAM 42.5 GM VAGINAL SCH ×2 (09:00→22:41)
--- NOTE | 2016-03-24 10:26 | HHI.PR ---
Subjective Remarks Follow-up for renal failure, stomach cancer No overnight events, good urine output, creatinine still improving. Wants to go home. Objective Vitals Vital Signs Date Time Temp Pulse Resp B/P Pulse Ox O2 Delivery O2 Flow Rate FiO2 03/24/16 08:00 96.6 99 18 137/85 96 03/24/16 00:00 98.6 98 19 137/82 94 03/23/16 20:00 98.4 106 18 132/78 94 03/23/16 16:00 96.0 90 16 158/94 97 03/23/16 12:00 96.2 94 16 138/92 95 I/O 03/23/16 03/23/16 03/23/16 03/24/16 03/24/16 03/24/16 07:00 15:00 23:00 07:00 15:00 23:00 Intake Total 120 ml 700 ml 240 ml 240 ml Output Total 300 ml 925 ml 950 ml 300 ml Balance -180 ml -225 ml -710 ml -60 ml Intake Oral 120 ml 600 ml 240 ml 240 ml IV Total 0 ml 100 ml 0 ml 0 ml Output Urine Total 300 ml 925 ml 950 ml 300 ml # Bowel Movements 1 1 0 2 Result Diagram: 03/22/16 0340 03/24/16 0559 Objective Remarks GENERAL: not in distress, a x o x 3 SKIN: Warm and dry. HEAD: Normocephalic. EYES: No scleral icterus. No injection or drainage. NECK: Supple, trachea midline. No JVD or lymphadenopathy. CARDIOVASCULAR: irregular rhythm, on telemetry RESPIRATORY: decreased breath sounds at bases, no rales, No accessory muscle use. Poor effort. GASTROINTESTINAL: abdomen, mildly distended, no tenderness, Adrian catheter in place. Clear urine MUSCULOSKELETAL: No cyanosis, 2 + edema, mildly tender on palpation Awake, alert, oriented to place, time and person, moves extremities. Procedures 03/14- EGD- esophagitis with gastric mass A/P Problem List: (1) gastric cancer, recurrent Status: Acute (2) Hypertension ICD Code: I10 Status: Acute (3) Afib ICD Code: I48.91 Status: Acute (4) Diabetes ICD Code: E11.9 Status: Acute (5) Chest pain ICD Code: R07.9 Status: Acute Assessment and Plan 89-year-old female with past medical history of HTN, HLD, DM, A. fib, GERD, PE, hypothyroidism, CHF, h/o gastric CA who presented with abdominal pain Invasive adenocarcinoma-S/P EGD- Esophagitis with gastric mass- biopsy invasive adenocarcinoma 03/14- increasing abdominal pain, continue Zofran erythromycin. Seen by oncology, recommends radiation therapy, likely palliative but needs a PET scan first as outpatient. Seen by general surgery, no surgical options at this point. KUB did not show any ileus. Continue Protonix, continue oral and intravenous narcotics as needed for pain. Seen by radiation oncology, plan is to do outpatient PET scan, then follow-up with radiation oncology. Acute renal failure with bilateral hydronephrosis, nonoliguric- ultrasound still shows bilateral hydronephrosis, creatinine still high despite IVF, nephrology consulted, Adrian catheter placed, urology reconsulted, renogram done showed bilateral high-grade obstruction right more than the left without any significant excretion from Lasix administration. Creatinine better, now down to 1.76, nonoliguric, might need a stent if worsening creatinine but obviously better, recheck BMP tomorrow. Baseline creatinine is 1.3. Discharge if okay with nephrology and urology. UTI-patient has been lethargic at times but easily arousable, urine culture grew Providencia stuartii, continue ceftriaxone (03/21/16-03/29/16). Switch to ciprofloxacin and Augmentin on discharge. Poor oral intake -continue ensure and Megace. Might need Dobbhoff if not eating. Chest pain, history of atrial fibrillation - no further episodes,Pt had a recent negative stress test. 2D ECHO shows EF of 40-45 %, PM checked - functioning, continue metoprolol. Avoid anticoagulation per oncology. Coumadin on hold. Hypokalemia 2/2 poor PO intake. Replace and monitor. Eating better. advise small meals Left leg wound present on admission. Change dressing daily: single layer xeroform and dry cover daily.Discussed with wound care nurse. Bilateral LE edema; - negative for DVT, Patient has a h/o LE DVT, stop Lasix for now, elevate legs, discussed with RN. Confusion: - resolved . Hypokalemia: Resolved. Diabetes mellitus: Hold home metformin. SSI with Accu-Cheks. Chronic anticoagulation: Secondary to atrial fibrillation and history of DVT/ PE. Coumadin on hold as above. Anemia: macrocytic. B12, folate, iron panel, ferritin normal. Other chronic medical conditions include HLD, GERD, hypothyroidism: seen by Palliative care- to determine goals of care, patient DO NOT RESUSCITATE Discussed extensively with patient's son: They agree with doing PET scan as outpatient and then will take it from there. DVT prophylaxis: SCDs Discharge Planning Discharge after cleared by nephrology and urology, to SNF likely Friday Desire Cox MD Mar 24, 2016 10:25
[2016-03-24] MEDS: cefTRIAXone INJ 1,000 MG in SODIUM CHLORIDE 0.9% INJ 100 ML IV SCH (11:26)
[2016-03-24 11:29] VITALS: O2SAT 91
[2016-03-24 12:00] VITALS: BP 146/92; PULSE 91; RESP 19; TEMP 95.3; O2SAT 96
--- NOTE | 2016-03-24 15:32 | HHI.NPPN ---
Subjective History of Present Illness 89 year old with ARF Obstructive uropathy, adenocarcinoma of stomach Review of Systems General Constitutional: Fatigue Objective Data Data 03/23/16 03/24/16 19:00 07:00 Intake Total 700 ml 480 ml Output Total 925 ml 1250 ml Balance -225 ml -770 ml Intake Oral 600 ml 480 ml IV Total 100 ml 0 ml Output Urine Total 925 ml 1250 ml # Bowel Movements 1 2 Vital Signs Date Time Temp Pulse Resp B/P Pulse Ox O2 Delivery O2 Flow Rate FiO2 03/24/16 12:00 95.3 91 19 146/92 96 03/24/16 11:29 91 Nasal Cannula 3.00 03/24/16 08:00 96.6 99 18 137/85 96 03/24/16 00:00 98.6 98 19 137/82 94 03/23/16 20:00 98.4 106 18 132/78 94 03/23/16 16:00 96.0 90 16 158/94 97 -: 03/22/16 0340 03/24/16 0559 Physical Exam General Appearance: Well Developed Neck Neck Exam: Neck Supple Pulmonary Resp Exam: Clear Bilaterally, Breath Sounds Equal Cardiology CV Exam: Arrhythmia Gastrointestinal/Abdomen GI Exam: Soft, Non-Tender Extremeties Extremities Exam: Trace Edema Assessment/Plan Problem List: (1) MINE (acute kidney injury) Plan: creatinine declined to 1.76 Urology follow up Renogram showed obstructive uropathy high grade R>L Okay to discharge from nephrology point of view she will need to follow up with urology (2) Bilateral hydronephrosis Plan: Patient is a having cancer and possibly related complications possible lymphadenopathy causing bilateral hydronephrosis etiology remains unclear (3) Atrial fibrillation Plan: Chronic (4) gastric cancer, recurrent Plan: Recurrence of cancer Michael Avila MD Mar 24, 2016 15:32
[2016-03-24 16:00] VITALS: BP 136/96; PULSE 106; RESP 19; TEMP 96.4; O2SAT 97
[2016-03-24 20:00] VITALS: BP 131/79; PULSE 62; RESP 19; TEMP 96; O2SAT 96
[2016-03-24] MEDS: PRAVASTATIN SOD 40 MG TAB PO SCH (22:36)
[2016-03-25] VITALS: BP 159/89; PULSE 97; RESP 19; TEMP 97.4; O2SAT 96
[2016-03-25] MEDS: SUCRALFATE 1 GM/10 ML CUP PO SCH (06:08)
[2016-03-25] MEDS: ERYTHROMYCIN EC 250 MG TABEC PO SCH (06:09)
[2016-03-25] MEDS: LEVOTHYROXINE SODIUM 50 MCG TAB PO SCH (06:09)
[2016-03-25] MEDS: INSULIN ASPART SUPPLEMENTAL SCALE SQ SCH ×2 (06:09→11:00)
[2016-03-25 08:00] VITALS: BP 135/88; PULSE 68; RESP 18; TEMP 96.1; O2SAT 96
[2016-03-25] MEDS ORDERED: ESTR42.5V VAGINAL (08:45)
[2016-03-25] MEDS ORDERED: MEGE40SU PO (08:45)
[2016-03-25] MEDS ORDERED: SENN8.6T15 PO (08:45)
[2016-03-25] MEDS ORDERED: AUGM875T PO (09:00)
--- NOTE | 2016-03-25 09:00 | HHI.PR ---
Subjective Remarks Follow-up for renal failure patient feels good, still with good urine output via Adrian catheter. No overnight events. Afebrile. No pain. Objective Vitals Vital Signs Date Time Temp Pulse Resp B/P Pulse Ox O2 Delivery O2 Flow Rate FiO2 03/25/16 08:00 96.1 68 18 135/88 96 03/25/16 00:00 97.4 97 19 159/89 96 03/24/16 20:00 96.0 62 19 131/79 96 03/24/16 16:00 96.4 106 19 136/96 97 03/24/16 12:00 95.3 91 19 146/92 96 03/24/16 11:29 91 Nasal Cannula 3.00 I/O 03/24/16 03/24/16 03/24/16 03/25/16 03/25/16 03/25/16 07:00 15:00 23:00 07:00 15:00 23:00 Intake Total 240 ml 240 ml 240 ml 360 ml Output Total 300 ml 800 ml 300 ml 1100 ml Balance -60 ml -560 ml -60 ml -740 ml Intake Oral 240 ml 240 ml 240 ml 360 ml IV Total 0 ml Output Urine Total 300 ml 800 ml 300 ml 1100 ml # Bowel Movements 2 5 0 0 Result Diagram: 03/22/16 0340 03/24/16 0559 Objective Remarks GENERAL: not in distress, a x o x 3 SKIN: Warm and dry. HEAD: Normocephalic. EYES: No scleral icterus. No injection or drainage. NECK: Supple, trachea midline. No JVD or lymphadenopathy. CARDIOVASCULAR: irregular rhythm, on telemetry RESPIRATORY: decreased breath sounds at bases, no rales, No accessory muscle use. Poor effort. GASTROINTESTINAL: abdomen, mildly distended, no tenderness, Adrian catheter in place. Clear urine MUSCULOSKELETAL: No cyanosis, 2 + edema, mildly tender on palpation Awake, alert, oriented to place, time and person, moves extremities. Procedures 03/14- EGD- esophagitis with gastric mass A/P Problem List: (1) gastric cancer, recurrent Status: Acute (2) Hypertension ICD Code: I10 Status: Acute (3) Afib ICD Code: I48.91 Status: Acute (4) Diabetes ICD Code: E11.9 Status: Acute (5) Chest pain ICD Code: R07.9 Status: Acute Assessment and Plan 89-year-old female with past medical history of HTN, HLD, DM, A. fib, GERD, PE, hypothyroidism, CHF, h/o gastric CA who presented with abdominal pain Invasive adenocarcinoma-S/P EGD- Esophagitis with gastric mass- biopsy invasive adenocarcinoma 03/14- increasing abdominal pain, continue Zofran erythromycin. Seen by oncology, recommends radiation therapy, likely palliative but needs a PET scan first as outpatient. Seen by general surgery, no surgical options at this point. KUB did not show any ileus. Continue Protonix, continue oral and intravenous narcotics as needed for pain. Seen by radiation oncology, plan is to do outpatient PET scan, then follow-up with radiation oncology. Acute renal failure with bilateral hydronephrosis, nonoliguric- ultrasound still shows bilateral hydronephrosis, creatinine still high despite IVF, nephrology consulted, Adrian catheter placed, urology reconsulted, renogram done showed bilateral high-grade obstruction right more than the left without any significant excretion from Lasix administration. Creatinine better after Adrian catheter insertion. Baseline creatinine is 1.3. Cleared for discharge by nephrology, will need to follow-up with urology in 1-2 weeks. May restart Lasix in a few days if creatinine continues to improve. We'll need to give Adrian catheter for now. UTI-patient has been lethargic at times but easily arousable, urine culture grew Providencia stuartii, continue ceftriaxone (03/21/16-03/29/16). Switch to ciprofloxacin and Augmentin on discharge. Poor oral intake -continue ensure and Megace. Might need Dobbhoff if not eating. Chest pain, history of atrial fibrillation - no further episodes,Pt had a recent negative stress test. 2D ECHO shows EF of 40-45 %, PM checked - functioning, continue metoprolol. Avoid anticoagulation per oncology. Coumadin on hold. Hypokalemia 2/2 poor PO intake. Replace and monitor. Eating better. advise small meals Left leg wound present on admission. Change dressing daily: single layer xeroform and dry cover daily.Discussed with wound care nurse. Bilateral LE edema; - negative for DVT, Patient has a h/o LE DVT, stop Lasix for now, elevate legs, discussed with RN. Confusion: - resolved . Hypokalemia: Resolved. Diabetes mellitus: Hold home metformin. SSI with Accu-Cheks. Chronic anticoagulation: Secondary to atrial fibrillation and history of DVT/ PE. Coumadin on hold as above. Anemia: macrocytic. B12, folate, iron panel, ferritin normal. Other chronic medical conditions include HLD, GERD, hypothyroidism: seen by Palliative care- to determine goals of care, patient DO NOT RESUSCITATE Discussed extensively with patient's son: They agree with doing PET scan as outpatient and then will take it from there. DVT prophylaxis: SCDs Discharge Planning Discharge after cleared by nephrology and urology, to SNF likely Friday Desire Cox MD Mar 25, 2016 08:59
[2016-03-25] MEDS: MEGESTROL ACETATE SUSP 400 MG/10 ML CUP PO SCH (09:34)
[2016-03-25] MEDS: METOPROLOL SUCCINATE 50 MG EXTENDED RELEASE TAB PO SCH (09:34)
[2016-03-25] MEDS: DOCUSATE SODIUM 50 MG/SENNA 8.6 MG TAB PO SCH (09:34)
[2016-03-25] MEDS: POTASSIUM CL 40 MEQ/30 ML LIQ UDC PO SCH (09:34)
[2016-03-25] MEDS: GABAPENTIN 300 MG CAP PO SCH (09:34)
[2016-03-25] MEDS: DONEPEZIL HCL 5 MG TAB PO SCH (09:34)
[2016-03-25] MEDS: MEMANTINE HCL 5 MG TAB PO SCH (09:34)
[2016-03-25] MEDS: TOLTERODINE TARTRATE 2 MG CAP LA PO SCH (09:34)
[2016-03-25] MEDS: POLYETHYLENE GLYCOL 17 GM PKG PO SCH (09:34)
[2016-03-25] MEDS: PANTOPRAZOLE SOD 40 MG DELAYED RELEASE TAB PO SCH (09:34)
[2016-03-25] MEDS: MULTIVITAMINS/MINERALS THERAPEUTIC TAB PO SCH (09:35)
[2016-03-25] MEDS: SODIUM CHLORIDE 0.9% FLUSH 5 ML FLUSH FLUSH SCH (09:35)
[2016-03-25] MEDS: NYSTAT/DIPHENHY/LIDO MOUTHWASH (Adult) 120ML SWISH-SWAL SCH (09:35)
[2016-03-25] MEDS: ESTRADIOL 0.1 MG/GM VAG CREAM 42.5 GM VAGINAL SCH (09:36)
[2016-03-25 12:00] VITALS: BP 134/84; PULSE 103; RESP 18; TEMP 96.3; O2SAT 97
--- NOTE | 2016-04-05 16:16 | PQ ---
Physician Query Response Document PATIENT: DREW ORTIZ : 1925 ADMIT DATE: 03/09/2016 4:25 PM DISCH DATE: 03/25/2016 2:24 PM RESPONDING PROVIDER #: douglas QUERY TEXT: CHF Acuity and Type Heart Failure is documented in the Medical Record. Please also document the type and acuity (includes probable or suspected) such as: Type: -- Combined -- Diastolic -- Systolic -- Other (please specify) Acuity: -- Acute -- Acute on chronic -- Chronic -- Other (please specify) Also please document the underlying cause of the heart failure (includes probable or suspected) The patient's Clinical Indicators include: Patient with diastolic congestive heart failure on admission. Dr. Osorio states in her consulta tion patient appears to be in acute on chronic systolic and diastolic dysfunction. If you have any additional questions/comments and/or concerns please do not hesitate to reach out to the CDI/Coding Hotline ext. [phone] Query created by: Chantel Seals on 03/29/2016 2:13 PM RESPONSE TEXT: acute on chronic systoliccongestive heart failure. Electronically signed by: Desire Cox MD 04/04/2016 4:23 PM
== END 2016-03-25 14:24 | DRG 374 ==
LOC: NEPA 13:14 → NEDA 16:25 → N07A 18:01
PROVIDERS: ADMIT Hospitalist; ATTEND Hospitalist
PROC: 0DB68ZX Excision of Stomach, Via Natural or Artificial Opening Endoscopic, Diagnostic (ICD-10-PCS; principal; 2016-03-14 12:00)
PROC: 0T9B70Z Drainage of Bladder with Drainage Device, Via Natural or Artificial Opening (ICD-10-PCS; 2016-03-20)
DX: C16.2 Malignant neoplasm of body of stomach (principal); I50.23 Acute on chronic systolic (congestive) heart failure; N17.9 Acute kidney failure, unspecified; I47.2 Ventricular tachycardia; I95.9 Hypotension, unspecified; I13.0 Hypertensive heart and chronic kidney disease with heart failure and stage 1 through stage 4 chronic kidney disease, or unspecified chronic kidney disease; E11.22 Type 2 diabetes mellitus with diabetic chronic kidney disease; N13.30 Unspecified hydronephrosis; F03.90 Unspecified dementia, unspecified severity, without behavioral disturbance, psychotic disturbance, mood disturbance, and anxiety; J98.11 Atelectasis; N39.0 Urinary tract infection, site not specified; E78.5 Hyperlipidemia, unspecified; M41.9 Scoliosis, unspecified; E03.9 Hypothyroidism, unspecified; K59.00 Constipation, unspecified; E87.6 Hypokalemia; D72.819 Decreased white blood cell count, unspecified; R74.8 Abnormal levels of other serum enzymes; F43.21 Adjustment disorder with depressed mood; K21.0 Gastro-esophageal reflux disease with esophagitis; R41.89 Other symptoms and signs involving cognitive functions and awareness; R13.10 Dysphagia, unspecified; N95.2 Postmenopausal atrophic vaginitis; N39.3 Stress incontinence (female) (male); D53.9 Nutritional anemia, unspecified; N18.9 Chronic kidney disease, unspecified; M19.90 Unspecified osteoarthritis, unspecified site; H91.93 Unspecified hearing loss, bilateral; G62.9 Polyneuropathy, unspecified; I48.0 Paroxysmal atrial fibrillation; G89.29 Other chronic pain; K57.30 Diverticulosis of large intestine without perforation or abscess without bleeding; M79.605 Pain in left leg; B96.89 Other specified bacterial agents as the cause of diseases classified elsewhere; Z51.5 Encounter for palliative care; Z66 Do not resuscitate; Z79.01 Long term (current) use of anticoagulants; Z79.84 Long term (current) use of oral hypoglycemic drugs; Z90.3 Acquired absence of stomach [part of]; Z95.0 Presence of cardiac pacemaker; Z85.028 Personal history of other malignant neoplasm of stomach; Z86.711 Personal history of pulmonary embolism; Z86.718 Personal history of other venous thrombosis and embolism; Z92.3 Personal history of irradiation; Z92.21 Personal history of antineoplastic chemotherapy; T50.2X5A Adverse effect of carbonic-anhydrase inhibitors, benzothiadiazides and other diuretics, initial encounter
CPT/HCPCS: 71010; 74020; 74177; 76775; 78708; 80048; 80053; 81001; 82306; 82607; 82728; 82746; 82948; 83540; 83550; 83605; 83690; 83735; 83880; 84443; 84484; 85007; 85025; 85027; 85610; 85730; 87077; 87086; 87186; 88305; 88312; 93005; 93306; 93970; 96374; 96375; 99222; A9539; J0696; J1650; J1815; J1940; J2270; J2405; J2765; J3480; J7030; Q9967